=== PATIENT | female | born 1940 | race Caucasian/White ===

== ENCOUNTER 2019-04-24 11:14 | Inpatient (IN) | payer MEDICARE ==
--- NOTE | 2019-04-24 11:23 | ED ---
Neurological HPI - HPI Summary HPI Summary: Patient is a 78 y/o F presenting to the ED via EMS for a chief complaint of neurological deficit. Patient is present with her daughter. Patient's daughter states that the patient is visiting [place] from [place] and has been increasingly weak for the last 24 hours. Typically, the patient is functional on her own, but since visiting, she has been unable to complete tasks without help. She has also needed to use a walker, which she does not usually need to ambulate. On 04/23/19, patient notes having memory problems, mumbling speech, and bilateral LE and right UE numbness and weakness. Her daughter states the mumbling speech quickly resolved after initial onset. She does not have a fever. No aggravating or alleviating factors are reported. Patient also reports having a fall in her bathroom on the morning of 04/23/19. A brain MRI performed on 04/23/19 at [facility] showed subacute infarcts per her daughter. On medical record review, brain MRI showed bilateral subacute supraentorial infarcts with concern for cardioembolic source. PMHx is significant for multiple myeloma for which she is receiving chemotherapy, last on 04/16/19. Patient denies a history of CVA. She sees Dr. Blanca Mandel, a roundhouse firer/fireman/oncologist, at [facility]. - History of Current Complaint Stated Complaint: BLOOD CLOT PER EMS Time Seen by Provider: 04/24/19 11:20 Hx Obtained From: Patient, Family/Quality Technician [employer] - Daughter, Medical Records Onset/Duration: Sudden Onset Timing: Sudden Onset Onset Severity: Moderate Current Severity: Moderate Neurological Deficit Location: RUE, RLE, LLE Pain Scale Used: 0-10 Numeric Character: Weak - Bilateral LE and right UE, Numbness/Tingling - Bilateral LE and right UE, Motor Weakness - Bilateral LE and right UE, Impaired Speech - Mumbling speech, resolved Aggravating: Nothing Alleviating: Nothing Associated Signs and Symptoms: Positive: Weakness - Bilateral LE and right UE, Numbness - Bilateral LE and right UE. Negative: Fever - Allergy/Home Medications Allergies/Adverse Reactions: Allergies Allergy/AdvReac Type Severity Reaction Status Date / Time Sulfa (Sulfonamide Allergy Rash And Verified 04/24/19 11:49 Antibiotics) Itching Home Medications: Home Medications Acyclovir* [Zovirax 400 MG TAB*] 400 mg PO BID 04/24/19 [History Confirmed 04/24] Atorvastatin* [Lipitor*] 10 mg PO DAILY 04/24/19 [History Confirmed 04/24/19] Dexamethasone [Decadron] 4 mg PO SEE INSTRUCTIONS 04/24/19 [History Confirmed ] Metoprolol Succinate XL TAB* [Toprol XL TAB*] 50 mg PO DAILY 04/24/19 [History Confirmed 04/24/19] Omeprazole 20 mg PO DAILY 04/24/19 [History Confirmed 04/24/19] traMADol TAB* [Ultram*] 50 - 400 mg PO BEDTIME 04/24/19 [History Confirmed 04/24] PMH/Surg Hx/FS Hx/Imm Hx Previously Healthy: Yes Endocrine/Hematology History: Denies: Hx Diabetes Sensory History: Denies: Hx Legally Blind, Hx Deafness Opthamlomology History: Denies: Hx Legally Blind EENT History: Denies: Hx Deafness - Cancer History Cancer Type, Location and Year: Muliple myeloma Hx Chemotherapy: Yes - Surgical History Surgical History: None Surgery Procedure, Year, and Place: None Infectious Disease History: No - Family History Known Family History: Negative: Blood Disorder - Social History Occupation: Retired Alcohol Use: None Hx Substance Use: No Substance Use Type: Reports: None Hx Tobacco Use: No Smoking Status (MU): Never Smoked Tobacco Review of Systems Negative: Fever Positive: Weakness - Bilateral LE and right UE, Numbness - Bilateral LE and right UE All Other Systems Reviewed And Are Negative: Yes Physical Exam - Summary Physical Exam Summary: Constitutional: Well-developed, Well-nourished, Elderly, Alert. (-) Distressed Skin: Warm, Dry HENT: Normocephalic; Atraumatic Eyes: Conjunctiva normal Neck: Musculoskeletal ROM normal neck. (-) JVD, (-) Nuchal rigidity Cardio: Rhythm regular, rate normal, Heart sounds normal; Intact distal pulses; Radial pulses are 2+ and symmetric. (-) Murmur Pulmonary/Chest wall: Effort normal. (-) Respiratory distress, (-) Wheezes, (-) Rales Abd: Soft. (-) Tenderness, (-) Distension, (-) Guarding, (-) Rebound Musculoskeletal: (-) Edema Lymph: (-) Cervical adenopathy Neuro: Alert, PERRL, Oriented x3, Strength normal, Cranial nerves II-XII are grossly intact aside from mild dysarthria. SILT, Strength 5/5 BUE and BLE, (-) Dysmetria, (-) Nystagmus, ambulates w help Psych: Mood and affect Normal Triage Information Reviewed: Yes Vital Signs Reviewed: Yes Procedures - Sedation Patient Received Moderate/Deep Sedation with Procedure: No Diagnostics - Laboratory Result Diagrams: 04/24/19 11:37 04/24/19 11:37 Lab Statement: Any lab studies that have been ordered have been reviewed, and results considered in the medical decision making process. - EKG 12:04 Cardiac Rate: NL - 79 BPM EKG Rhythm: Sinus Rhythm ST Segment: Normal Ectopy: None Summary of EKG Findings: An EKG at 12:04 reveals normal sinus rhythm with 79 BPM , T wave inversions in lead III and V2, nml axis, nml intervals. No STEMI. No acute changes. ED physician has reviewed and interpreted this EKG. NIH Scale - NIH Scale Level of Consciousness: Alert/Keenly Responsive Ask Patient the Month and His/Her Age: Both Correct Ask Pt to Open/Close Eyes and Children'S Service Worker/Release Non-Paretic Hand: Both Correctly Best Gaze (Only Horizontal Eye Movement): Normal Visual Field Testing: No Visual Loss Facial Paresis-Pt to Smile & Close Eyes or Grimace Symmetry: Normal/Symmetrical Motor Function - Right Arm: No Drift-Holds 10 Seconds Motor Function - Left Arm: No Drift-Holds 10 Seconds Motor Function - Right Leg: No Drift-Holds 10 Seconds Motor Function - Left Leg: No Drift-Holds 10 Seconds Limb Ataxia-Must be out of Proportion to Weakness Present: Absent Sensory (Use Pinprick to Test Arms/Legs/Trunk/Face): Normal Best Language (Describe Picture, Name Items): No Aphasia Dysarthria (Read Several Words): Slurs Some Words Extinction and Inattention: No Abnormality Total Score: 1 Course/Dx - Course Course Of Treatment: 78 y/o F with a history of multiple myeloma, presenting with concern for stroke. NH stroke scale 1 for intermittent dysarthria. Otherwise no focal neurologic deficits. MRI brain obtained yesterday shows subacute infarcts concerning for cardioembolic source. EKG sinus. Patient to be admitted for further workup. Oncology and neurology to be involved. - Diagnoses Provider Diagnoses: Stroke, Hyponatremia, Multiple myeloma - Physician Notifications Discussed Care Of Patient With: Kevan Johnson - At 12:07, Dr. Johnson states the patient will be okay to keep at [facility]. At 12:10, I discussed the patients case with her oncologist, Dr. Mandel at [facility]. Phone number is [phone]. At 12:18, Dr. Dina Echols agrees to admit the patient to [facility] with a diagnosis of stroke, hyponatremia, and multiple myeloma. Time Discussed With Above Provider: 12:07 Instructed by Provider To: Admit As Inpatient Discharge ED - Sign-Out/Discharge Documenting (check all that apply): Patient Departure - Admit - Discharge Plan Condition: Stable Disposition: ADMITTED TO [facility] - Billing Disposition and Condition Condition: STABLE Disposition: Admitted to [facility] - Attestation Statements Document Initiated by Frankibe: Yes Documenting Scribe: Mena Cristina Provider For Whom Scribe is Documenting (Include Credential): Valentine Beck MD Scribe Attestation: I, Mena Cristina, scribed for Valentine Beck MD on 04/24/19 at 2109. Scribe Documentation Reviewed: Yes Provider Attestation: The documentation as recorded by the Mena field accurately reflects the service I personally performed and the decisions made by , Valentine Beck MD Status of Scribe Document: Viewed
[2019-04-24 11:51] LABS: ABS Lymphocytes 0.6 10^3/ul (1.0-4.8); ABS Monocytes 0.8 10^3/ul (0-0.8); ABS Neutrophils 7.7 10^3/ul (1.5-7.7); Eosinophil % 0.3 %; Hematocrit 30 % (35-47); Hemoglobin 10.1 g/dL (12.0-16.0); Lymphocyte % 7.1 %; Mean Corpuscular HGB Conc 34 g/dL (31-36); Mean Corpuscular Hemoglobin 33 pg (27-31); Mean Corpuscular Volume 95 fL (80-97); Mean Platelet Volume 11.3 fL (7.4-10.4); Nucleated Red Blood Cells % 0.4; Platelet Count 76 10^3/uL (150-450); Red Blood Count 3.12 10^6 /uL (3.70-4.87); Red Cell Distribution Width 16 % (10-15); White Blood Count 9.1 10^3/uL (3.5-10.8)
[2019-04-24 11:54] LABS: INR 0.97 (0.82-1.09)
[2019-04-24 12:05] LABS: Albumin 3.6 g/dL (3.2-5.2); Albumin/Globulin Ratio 1.8 (1-3); EGFR African American 45.8 (>60); EGFR Non-African American 37.8 (>60); Total Bilirubin 0.8 mg/dL (0.2-1.0); Total Protein 5.6 g/dL (6.4-8.9)
[2019-04-24 13:16] LABS: Large Platelets Present
[2019-04-24] MEDS ORDERED: traMADol TAB* 50 MG PO PRN (14:40)
[2019-04-24] MEDS ORDERED: NS 0.9% 1000 ML** 1,000 ML IV SCH (14:45)
--- NOTE | 2019-04-24 15:16 | HP ---
History of Present Illness - History of Present Illness Reason for Visit: Slurring speech for 1 week History of Present Illness: Jackie Freedman is a 78 years old female with history of multiple myeloma under treatment with velcade and dexa, HTN, CKD stage 3, presented to [facility] ED for slurring speech with positive MRI results yesterday. History was obtained from patient herself and her two daughters who are very involved in her healthcare. She was noticed to have slurring speech since last Tuesday. Initially they noticed she had 10-15min slurring speech with no meaningful content last Tuesday when she was pacing. Subsequently, her daughter noticed "she sounds drunk" on and off in the past 1 week, and she was found to have naming difficulties. But no problems recognizing family members, no problem finding a way back. They contacted her oncologist Dr. Spangler in [facility], who ordered MRI brain her her and performed yesterday, which shows "bilateral punctate late acute to early subacute supra and infratentorial infarct which is possibly cardioembolic ". She had been noticed to have unsteady gait since Feb discharge from [facility] in [place] for hyponatremia causing confusion, she fell down twice recently, but didn't hit head. She had an episode of hallucination two nights ago when she saw a cat on the wall but no one else believed it, yesterday she had another episode of blackened vision yesterday which resolving very quickly. She denied other vision change other than above. In terms of her myeloma, she was diagnosed in Dec during investigation for her lower back, confirmed by bone marrow biopsy. She received 10 radiation to her back, and velcade 6 doses so far (3 weeks on and 1 week off, currently is off week, together with dexa when on velcade). She was told she was responding well but haven't reached remission. - Past Medical History Past Medical History: 1. HTN 2. Multiple Myeloma 3. CKD stage 3 4. Mild aortic stenosis- last echo was done end of Feb, was told stable as compared with previous echo 5. recent US carotid done, was told to be negative. - Past Surgical History Past Surgical History: 1. Bilateral knee replacement 2. Cataract surgery bilateral 3. bilateral hearing aid. - Past Family History Past Family History: Non contributory - Past Social History Past Social History: Staying alone in [place], two daughters both stay in [place]. ADL independent before current admission. Two daughters are main helpdesk specialist, one works in [employer]. Daughters plan to bring her to [place] for futher care. Her oncologist Dr. Aníbal Roberts is her r d intern in [place]. Medications: Home Medications Medication Instructions Recorded Confirmed Type Acyclovir* [Zovirax 400 MG TAB*] 400 mg PO BID 04/24/19 04/24/19 History Atorvastatin* [Lipitor*] 10 mg PO DAILY 04/24/19 04/24/19 History Dexamethasone [Decadron] 4 mg PO SEE INSTRUCTIONS 04/24/19 04/24/19 History Metoprolol Succinate XL TAB* 50 mg PO DAILY 04/24/19 04/24/19 History [Toprol XL TAB*] Omeprazole 20 mg PO DAILY 04/24/19 04/24/19 History traMADol TAB* [Ultram*] 50 - 400 mg PO BEDTIME 04/24/19 04/24/19 History Allergies/Adverse Reactions: Allergies Allergy/AdvReac Type Severity Reaction Status Date / Time Sulfa (Sulfonamide Allergy Rash And Verified 04/24/19 11:49 Antibiotics) Itching Review of Systems - Review of Systems Constitutional: Positive: Weakness. Negative: Fever, Chills, Sweats, Malaise, Other Eyes: Negative: Pain, Vision Change, Conjunctivae Inflammation, Eyelid Inflammation, Redness, Other ENT: Negative: Ear Pain, Ear Discharge, Nose Pain, Nose Discharge, Nose Congestion, Mouth Pain, Mouth Swelling, Throat Pain, Throat Swelling, Other Respiratory: Negative: Cough, Dry, Shortness of Breath, Hemoptysis, SOB with Excertion, Pleuritic Pain, Sputum, Wheezing Cardiovascular: Positive: Palpitations, Light Headedness Gastrointestinal: Negative: Nausea, Vomiting, Abdominal Pain, Diarrhea, Constipation, Melena, Hematochezia, Other Genitourinary: Negative: Dysuria, Frequency, Incontinence, Hematuria, Retention , Other Musculoskeletal: Positive: Arm Pain Skin: Positive: Other Neurological: Positive: Weakness, Change in Speech Exam Vital Signs: Vital Signs (72 hours) 04/24/19 04/24/19 04/24/19 11:16 11:27 11:30 Temperature 97.4 F Pulse Rate 91 89 88 Respiratory 20 21 25 Rate Blood Pressure 115/71 115/71 (mmHg) O2 Sat by Pulse 98 97 98 Oximetry 04/24/19 04/24/19 04/24/19 12:00 13:00 14:00 Temperature Pulse Rate 81 74 81 Respiratory 21 12 23 Rate Blood Pressure (mmHg) O2 Sat by Pulse 96 98 Oximetry Exam: Appearance: frail appearing woman not in NAD, alert and interactive Ears/Nose/Mouth/Throat: Clear Oropharnyx, Mucous Membranes Moist Neck: no carotid bruits Respiratory: Symmetrical Chest Expansion and Respiratory Effort, clear on auscultation Cardiovascular: NL Sounds; early systolic murmur in LSE; No JVD, RRR Abdominal: NL Sounds; No Tenderness; No Distention, No Hepatosplenomegaly Extremities: No Edema Neurological: Alert and Oriented x 4 Cranial nerve intact Muscle strength 5/5- LE restrained by back pain reflexes WNL all 4 limbs Sensation grossly intact no dysmetria, dysdiadochokinesia noticed on left hand Result Diagrams: 04/24/19 11:37 04/24/19 11:37 Additional Lab and Data: INR 0.97 Globulin normal range Liver function normal Microbiology and Other Data: None Diagnostic Imaging: MRI brain 04/23/2019: bilateral punctate late acute to early subacute supra and infratentorial infarct which is possibly cardioembolic. EKG Data: EKG: normal sinus rhythm. Assessment/Plan - Assessment/Plan Assessment: Jackie Freedman is a 78 years old female with history of multiple myeloma under treatment with velcade and dexa, HTN, CKD stage 3, presented to [facility] ED for slurring speech for 1 week duration, found to have late acute to early subacute stroke supra and infratentorial infarct in MRI brain, also noticed hyponatremia which probably has been long standing. We will admit her to medical-tele [facility] for telemetry monitoring with the concern of cardioembolic stroke noticed in MRI , also she needs a complete workup for her stroke and management of her cardiovascular risk factors. Plan: 1. Acute to subacute stroke ? cardioembolic - could explain her unsteady gait and slurring speech since it was noticed both supratentorial and infratentorial - telemetry monitoring for Afib, current EKG is NSR - iv NS - permissive hypertension, keep sBP up to 180mmhg for now - aspirin for now, I will hold off 2nd antiplt and antithrombotic for now in view of her thrombocytopenia and potential cardioembolic nature, I will defer the decision to neurologist - trace US carotid (Patient had one done end of Dec showing negative in [facility]) - TTE with bubble study - Neurology consult for further management - swallowing eval in the cole - check cholesterol tomorrow 2. Multiple Myeloma - current still under treatment with Velcade and Dexa, f/u Dr. Spangler in [facility] - definitely increases her risk of stroke with existing malignancy - will trace record from her primary oncologist - Family would like to establish oncology care in [place], would need to get oncology involved if that's the case - continue herpes prophylaxis as ordered by her oncologist 3. Hyponatremia - Na 129 - probably long standing, was 120 in Dec when she was hospitalized - recheck tomorrow 4. Hypertension - continue home med - permissive hypertension allowed for now up to 180mmhg systolic 5.CKD stage 3 - creatinine stable - continue to watch 6. DVT prophylaxis - high risk due to malignancy and stroke - SCD - will hold off lovenox for now while waiting neurologist's plan on that - Attestation Documenting Resident: Elham Vail Supervising Physician: Satya Temple Attending/Supervising Physician Comment: Patient with active treatment for myeloma, admitted w/ 1 week course of stuttering neurologic defects. MRI shows small apparent embolic strokes in LT and RT hemispheres, posterior and anterior circulation, a few days old. Suspect cardio-embolic source vs vasculitis vs infection. Discussed w/ Dr Doss. Family history negative for hematologic disease. Attestation: This service has been performed in part by a resident under the direction of a teaching physician.I, Satya Temple, performed the service, or was physically present during the critical, or ospina portions of the service, furnished by the resident. I participated in the management of the patient.
[2019-04-24] MEDS ORDERED: Clopidogrel TAB* 300 MG PO ONE (16:30)
--- NOTE | 2019-04-24 19:45 | CONS ---
NEUROLOGY CONSULTATION: DATE OF CONSULT: 04/24/19 REFERRING PROVIDER: Dr. Elham Vail. LOCATION: She is in the emergency room, to be admitted. HISTORY OF PRESENT ILLNESS: Jackie Freedman is a 78-year-old right-handed woman being treated for multiple myeloma by her oncologist in the [place] area. She lives alone and her daughters live in the [place] area. Last Tuesday, a little over a week ago, she had an episode of slurred speech. After that she has had problems ambulating and has been unsteady and started using a walker. She developed episodic confusion. There were no episodes of loss of awareness. She saw her oncologist about a week ago and an MRI scan of the brain was ordered. It was done today here in [place]. The interpretation was multiple small subacute cerebral infarctions and multiple vascular territories suspicious for cardiogenic emboli. I reviewed the images and I agree. However , there is no wedge-shaped infarct but rather multiple tiny punctate subacute infarcts. This includes in the left cerebellum and then bilateral cerebral hemispheres anterior and posteriorly. She presented for admission. Her daughters want to keep her in [place] as she was living by herself up in [place] and they feel she can no longer care for herself living alone. She does not have any history of heart disease other than "mild" aortic stenosis. She had an echocardiogram in February, which was apparently no worse than the prior scans. There is no history of atrial fibrillation. She does not take aspirin on a regular basis. There is no prior history of stroke or transient ischemic attack. PAST MEDICAL HISTORY: Is notable for multiple myeloma, several years of pretty bad back pain which ultimately led to the diagnosis of myeloma about a year ago. She has developed stage 3 kidney disease. She has a history of aortic stenosis. She has had bilateral knee replacements and cataract surgery. She wears hearing aids. MEDICATIONS AT HOME: Consist of: 1. Metoprolol XL 50 mg p.o. daily. 2. Omeprazole 20 mg p.o. daily. 3. Acyclovir 400 mg p.o. b.i.d. 4. Lipitor 10 mg p.o. daily. 5. Tramadol 50 mg as needed for back pain typically at bedtime. ALLERGIES: She is allergic to SULFA drugs. FAMILY HISTORY: Noncontributory. REVIEW OF SYSTEMS: Negative for skin rashes. She does have episodic abdominal pain. She denies shortness of breath or chest pain. She denies pain in her limbs. She gets episodic numbness in her hands for a long time. She denies numbness in her feet. She gained a lot of weight when she was being treated for hyponatremia and took on lots of edema fluid. She then lost it when she came off. She denies fevers, chills, or sweats. She has not had any recent infectious illnesses. She did have some change in her vision recently where she thought she saw a cap when there was not one there. That was in the last week or so. She had another vision where she saw a linear ribbon like scotoma in her visual field, which was brief and that was in the last week also. She has not experienced double vision. She does not have problems with headaches. She admits to occasional word finding problems. Her daughters note that her short-term memory has been declining for perhaps a year or more. She gave up doing her finances several months back because difficulty keeping up with them. She stopped driving just about a month ago. The rest of the 14-point review of systems is unremarkable. PHYSICAL EXAM: She is thin, but well hydrated. Temperature is 97.4, blood pressure 137/45, heart rate in 70s and in sinus on the monitor, respiratory rate is 20, and oxygen saturation is 98% on room air. Heart tones are regular with a grade 3/6 early systolic murmur, loudest at the upper right sternal border. There are no cervical bruits. Oral mucosa is moist and atraumatic. Lungs are Clear bilaterally. There is no clubbing. I do not see any obvious skin rashes. Feet and hands are warm. On neurological exam, pupils react equally from 4 mm down to 2 mm. Eye movements are normal. Visual causey are full to confrontation. Funduscopic exam is normal bilaterally. Facial musculature is symmetric. Facial sensation is symmetric to light touch. There is no dysarthria and tongue protrudes in the midline. She is a little hard of hearing. Motor exam reveals good strength proximally and distally in upper extremities and lower extremities other than some atrophy of right thenar muscles. There is pain with testing her right leg proximally in the low back. She has absent vibratory sense in the toes. She has intact light touch in the toes and fingers. She has diminished pin discrimination in the right median distribution relative to the ulnar distribution. She has absent proprioception in the great toes bilaterally. Reflexes are grade 1 in biceps, knees, and absent at the ankles. Right plantar is equivocal and the left plantar is flexor. I did not attempt to ambulate her. She has a little bit of multifocal myoclonus in the outstretched fingers. Finger- to-nose maneuver is slightly tremulous on the right hand relative to the left. Finger taps are normal bilaterally. [id number] maneuver is somewhat limited in terms of range of motion, but not grossly ataxic. She is alert and oriented with fair attention and concentration. She looses her train of thought at times. Language is fluent. DIAGNOSTIC STUDIES/LAB DATA: Laboratory data includes a CBC with a hemoglobin of 10.1, white blood cell count 9.1, platelet count low at 76,000. Her INR is normal at 0.97. Chemistry is notable for sodium of 129, BUN 27, creatinine 1.35 , glucose of 124. Calcium is normal. Liver enzymes are normal. Globulin level is low normal at 2.0. Beta-2 microglobulin is elevated at 4.21. IMPRESSION: There are multiple punctate cerebral infarctions in multiple vascular distributions. Cardiogenic emboli are certainly on the differential diagnosis. Vasculitis in a patient with multiple myeloma and Velcade is another possibility. PLAN/RECOMMENDATIONS: For now, I recommend treating with aspirin and a loading dose of Plavix. I recognize that her platelets are low, but I think it is still relatively safe to start Plavix and aspirin at least for the short term. She will be admitted to Telemetry. Recommend an transesophageal echocardiogram as we need to get a good look at her valves, specifically aortic valve. I will put in blood work for antineutrophil antibodies as well as a sedimentation rate and CRP. Her daughters indicate that they would like her to see Oncology as they plan to have her move to [place]. I will continue to follow her along with you. [id number]/[facility] #: [id number] VENKAT
[2019-04-24] MEDS: Acyclovir* 400 MG TAB PO SCH (21:27)
[2019-04-25 01:54] LABS: C Reactive Protein 1.95 mg/L (<8.01)
[2019-04-25] MEDS: Acetaminophen TAB* 325 MG PO PRN ×2 (03:04→22:17)
[2019-04-25] MEDS ORDERED: Polyethylene Glycol 3350* 17 GM PACKET PO PRN (08:00)
[2019-04-25 09:26] LABS: ABS Lymphocytes 0.7 10^3/ul (1.0-4.8); ABS Monocytes 0.6 10^3/ul (0-0.8); ABS Neutrophils 6.6 10^3/ul (1.5-7.7); Eosinophil % 0.4 %; Hematocrit 25 % (35-47); Hemoglobin 8.9 g/dL (12.0-16.0); Lymphocyte % 8.2 %; Mean Corpuscular HGB Conc 35 g/dL (31-36); Mean Corpuscular Hemoglobin 33 pg (27-31); Mean Corpuscular Volume 94 fL (80-97); Mean Platelet Volume 11.1 fL (7.4-10.4); Nucleated Red Blood Cells % 0.1; Platelet Count 54 10^3/uL (150-450); Red Blood Count 2.69 10^6 /uL (3.70-4.87); Red Cell Distribution Width 16 % (10-15)
[2019-04-25 09:33] LABS: BUN/Creatinine Ratio 20.4 (8-20); Calcium 8.3 mg/dL (8.6-10.3); EGFR African American 59.2 (>60); EGFR Non-African American 48.9 (>60); HDL Cholesterol 65.9 mg/dL; Potassium 3.8 mmol/L (3.5-5.0)
[2019-04-25] MEDS ORDERED: Naloxone* 0.4 MG/ML 1 ML VIAL ONE (11:43)
[2019-04-25] MEDS ORDERED: Lidocaine 2% VISCOUS* 15 ML UDC ONE (11:43)
[2019-04-25] MEDS ORDERED: Flumazenil* 0.1 MG/ML 5 ML MDV ONE (11:43)
[2019-04-25] MEDS ORDERED: fentaNYL* 50 MCG/ML 2 ML VIAL (100 MCG VIAL) ONE (11:43)
[2019-04-25] MEDS ORDERED: Midazolam* 1 MG/ML 5 ML VIAL (5 MG) ONE (11:43)
--- NOTE | 2019-04-25 12:24 | PROCNOTE ---
Cardiology Procedure Note EDEL completed PRELIM: No cardioembolic source found NML LV and RV function. Mild , NCC immobile Mild + MR Plaque in descending aorta
--- NOTE | 2019-04-25 14:56 | TEE ---
*[facility]* [place] [address] Fax #: [phone] Transesophageal Echocardiogram Patient: Eze Freedman : 1940 Study Date: 04/25/2019 Age: 78 Gender: F HR: 75 bpm Height: 63 in /160 cm BSA: 1.56 m^2 Weight: 120 lb /54.5 kg BMI: 21.3 kg/m^2 *Tie In Hand: Mena Drummond [facility] *Referring Physician: * Eber Doss *Reading Physician: * Opal Agustin MD Indications: CVA. History: Multiple myeloma, chemo. Aortic stenosis. Risk factors: Hypertension. Conclusions Summary: - Left ventricle: Systolic function is normal. The estimated ejection fraction is 55-60%. Wall motion is normal; there are no regional wall motion abnormalities. - Right ventricle: Systolic function is normal. - Left atrium: Emptying velocity is normal. Mild Rouleax formation noted. There is no evidence of a thrombus in the atrial cavity or appendage. - Atrial septum: Bubble study was negative - Mitral valve: There is mild to moderate regurgitation. - Aortic valve: Cusp separation is moderately reduced. The findings are consistent with mild stenosis. There is trace regurgitation. - Tricuspid valve: There is trace regurgitation. - Aorta: The aorta is normal size and moderately calcified. - Pulmonary arteries: No ductal shunt is identified by Doppler. - No cardioembolic source identified. - No prior echocardiogram available to compare with. Study data: Diagnostic Transesophageal Echocardiogram Consent: The risks and benefits of the procedure, including alternatives were discussed with the patient and/or their health care specialty sales representative and written informed consent was obtained. Procedure: Initial setup: The patient was brought to the laboratory in the fasting state.Intravenous access was obtained. Surface ECG leads, heart rate, heart rhythm, blood pressure measurements, pulse oximetric signals, and mainstream end-tidal CO2 tracings were monitored throughout the procedure. Sedation. Moderate sedation was administered by nursing staff. History and physical as well as labs were reviewed. An oral bite block was inserted for protection of oral dentition. The patient was placed in the left lateral decubitus position. Topical anesthesia was obtained using viscous lidocaine. A transesophageal probe was inserted by the attending firmware engineer. Transesophageal echocardiography was performed, and all standard views were attempted within the limitations of patient tolerance and safety. Multiple 2D, color flow Doppler and spectral Doppler images were obtained. The transesophageal probe was removed. There was no blood loss.No specimens obtained.No tubes, implants, or drains. A bubble study was performed. Location: Procedure room. Patient status: Inpatient. Patient room number: 449. Study completion: The patient tolerated the procedure well. There were no complications. Administered medications: Midazolam, 4mg. Fentanyl, 50mcg. Findings Left ventricle: The cavity size is normal. Systolic function is normal. The estimated ejection fraction is 55-60%. Wall motion is normal; there are no regional wall motion abnormalities. Right ventricle: The cavity size is normal. Systolic function is normal. Left atrium: The atrium is dilated. Emptying velocity is normal. Mild Rouleax formation noted. There is no evidence of a thrombus in the atrial cavity or appendage. Right atrium: The atrium is normal in size. The Eustachian valve appeared prominant. Atrial septum: Bubble study was negative Image #[id number]. Mitral valve: The annulus appears calcified. The leaflets are mildly thickened. There is no evidence of stenosis. There is mild to moderate regurgitation. Aortic valve: The valve is trileaflet. The leaflets are moderately calcified. Cusp separation is moderately reduced. The findings are consistent with mild stenosis. There is trace regurgitation. Tricuspid valve: The leaflets are normal thickness. There is no evidence of stenosis. There is trace regurgitation. Pulmonic valve: The leaflets are normal thickness. There is no evidence of stenosis. There is trace regurgitation. Aorta: The aorta is normal size and moderately calcified. Pericardium: There is no significant pericardial effusion. Pulmonary arteries: The main pulmonary artery is normal-sized. No ductal shunt is identified by Doppler. Systemic veins: Inferior vena cava: The vessel is normal in size. Superior vena cava: The vessel is appears normal. Pulmonary veins: The flow of the pulmonary veins appears normal. Measurements Aortic valve Value Ref Mitral valve continued Value Ref Jacinta diam, ED 2.0 cm ---- Peak grad, D 4.2 mm Hg ---- Peak v, S 2.6 m/sec ---- Peak E/A ratio 1 ---- VTI, S 56.0 cm ---- Mean grad, S 13.0 mm Hg ---- Aortic root Value Ref Peak grad, S 27.0 mm Hg ---- Root diam 2.8 cm <3.8 Root max diam, ED 2.8 cm <3.8 Mitral valve Value Ref Peak E 1.03 m/sec ---- Ascending aorta Value Ref Peak A 1.08 m/sec ---- AAo AP diam, S 2.9 cm ---- Decel time 81 ms ---- AAo AP diam/bsa, S 1.9 cm/m^2 ---- Legend: (L) and (H) rosa values outside specified reference range. Prepared and electronically signed by Opal Agustin MD 04/25/2019 14:55
[2019-04-25] MEDS: Acyclovir* 400 MG TAB PO SCH (15:28)
[2019-04-25] MEDS: Clopidogrel TAB* 75 MG PO SCH (15:38)
[2019-04-25] MEDS: Pantoprazole TAB * 40 MG TAB PO SCH (15:41)
[2019-04-25] MEDS: Metoprolol Succinate XL TAB* 50 MG PO SCH (15:41)
[2019-04-25] MEDS: Aspirin 81 mg CHEW TAB* 81 MG TAB.CHEW PO SCH (15:42)
[2019-04-25] MEDS: Atorvastatin* 10 MG TAB PO SCH (15:42)
--- NOTE | 2019-04-25 16:33 | CONS ---
NEUROLOGY FOLLOWUP CONSULT: DATE OF FOLLOWUP: 04/25/19 LOCATION: She is an inpatient in room 449. HOSPITALIST: Dr. Vail. ATTENDING PHYSICIAN: Dr. Temple. CHIEF COMPLAINT: Strokes, confusion. INTERVAL HISTORY: Since last night, Jackie has been more confused and hallucinating. One of her daughters as well as her son-in-law is present. She has been seeing cats and other items in her room. She just recently came back from a transesophageal echocardiogram. Her daughter reports that when she was hospitalized with hyponatremia in February she was also hallucinating. As noted in my note from yesterday, she was having some memory problems progressively for perhaps months or a bit longer going back prior to this illness. MEDICATIONS: Reviewed and she is on: 1. Aspirin 81 mg p.o. daily. 2. Acyclovir 400 mg p.o. b.i.d. 3. Atorvastatin 10 mg p.o. daily. 4. Metoprolol 50 mg p.o. daily. 5. Pantoprazole 40 mg p.o. daily. 6. MiraLAX. PHYSICAL EXAM: She is thin, but well hydrated. Temperature most recently 97.3 , blood pressure is running about 120 to 140 systolic over 60 to 80 diastolic. Neurological Exam: Pupils react equally from 3.5 to 2 mm. Eye movements are normal. Visual causey are full to confrontation. Funduscopic exam is unremarkable. Facial musculature is symmetric today. Facial sensation to light touch is symmetric. Speech is mildly dysarthric. Motor exam reveals antigravity strength symmetrically in all limbs. There is no drift of the arms. [id number] maneuver is a bit clumsy on the left relative to the right. I did not attempt to ambulate her. She is awake and alert. She has very poor attention and concentration and intermittently visually tracks hallucinations. She thinks she saw her cat in the room. She loses her train of thought very easily. She picks at her bedclothes. DIAGNOSTIC STUDIES/LAB DATA: Includes the transesophageal echocardiogram, which revealed mild aortic stenosis, but was otherwise unremarkable without a cardioembolic source. There was some plaque in the descending aorta. Other laboratory data since yesterday notable for sedimentation rate of 11, normal INR yesterday, normal CRP from yesterday at 1.95. Her sodium today is 129, creatinine is stable at 1.08. She has been in sinus rhythm on her telemetry overnight. IMPRESSION AND PLAN: Impression is that of multiple probable cardioembolic strokes, but without a clear source. Vasculitis remains on the differential, but with a normal sedimentation rate and CRP makes it less likely. She is currently experiencing delirium. She may have had some premorbid mild cognitive impairment. Oncology has been consulted and Dr. Vail informs me that they will probably see her tomorrow. I spoke with Social Work and they have been consulted too. Her daughters want her to move into the [facility] and move her medical care here as well. She will be monitored at least overnight and unless she goes into atrial fibrillation, I would recommend dual antiplatelet therapy for 21 days followed by aspirin monotherapy. We discussed prognosis at some length regarding recovery from stroke and whether or not she had premorbid cognitive disorder or not. I will continue to follow her along with you. [id number]/CPS #: [id number] VENKAT
--- NOTE | 2019-04-25 17:33 | PN ---
Subjective Date of Service: 04/25/19 Interval History: Patient was accompanied by her daughter this morning. She didn't have a good sleep here. Daughter stated that she still had visual hallucinations, seeing cats on the wall. Objective Active Medications: Acetaminophen (Tylenol Tab*) 650 mg PO Q4H PRN PRN Reason: PAIN - MILD Last Admin: 04/25/19 03:04 Dose: 650 mg Aspirin (Aspirin 81 Mg Chew Tab*) 81 mg PO DAILY [facility] Last Admin: 04/25/19 15:42 Dose: 81 mg Atorvastatin Calcium (Lipitor*) 10 mg PO DAILY [facility] Last Admin: 04/25/19 15:42 Dose: 10 mg Clopidogrel Bisulfate (Plavix Tab*) 75 mg PO DAILY [facility] Last Admin: 04/25/19 15:38 Dose: 75 mg Melatonin (Melatonin) 3 mg PO BEDTIME [facility] Metoprolol Succinate (Toprol Xl Tab*) 50 mg PO DAILY [facility] Last Admin: 04/25/19 15:41 Dose: 50 mg Pantoprazole Sodium (Protonix Tab*) 40 mg PO DAILY [facility] Last Admin: 04/25/19 15:41 Dose: 40 mg Polyethylene Glycol/Electrolytes (Miralax*) 17 gm PO DAILY PRN PRN Reason: CONSTIPATION Tramadol HCl (Ultram*) 50 mg PO BEDTIME PRN PRN Reason: PAIN - MODERATE Last Admin: 04/24/19 21:27 Dose: 50 mg Vital Signs - 8 hr 04/25/19 04/25/19 04/25/19 11:21 11:25 11:30 Temperature Pulse Rate 79 78 82 Respiratory 16 14 16 Rate Blood Pressure 142/84 146/78 155/78 (mmHg) O2 Sat by Pulse 96 97 96 Oximetry 04/25/19 04/25/19 04/25/19 11:57 11:58 12:00 Temperature Pulse Rate 84 80 78 Respiratory Rate Blood Pressure 158/97 144/74 (mmHg) O2 Sat by Pulse 96 94 95 Oximetry 04/25/19 04/25/19 04/25/19 12:02 12:06 12:11 Temperature Pulse Rate 77 73 70 Respiratory Rate Blood Pressure 130/65 114/66 108/62 (mmHg) O2 Sat by Pulse 94 94 94 Oximetry 04/25/19 04/25/19 04/25/19 12:16 12:21 12:26 Temperature Pulse Rate 70 73 71 Respiratory Rate Blood Pressure 128/62 141/83 126/66 (mmHg) O2 Sat by Pulse 95 95 95 Oximetry 04/25/19 04/25/19 04/25/19 12:31 12:47 13:46 Temperature 98.6 F Pulse Rate 67 69 77 Respiratory 16 Rate Blood Pressure 114/59 119/57 146/66 (mmHg) O2 Sat by Pulse 95 95 98 Oximetry 04/25/19 15:15 Temperature 97.3 F Pulse Rate 79 Respiratory 18 Rate Blood Pressure 115/95 (mmHg) O2 Sat by Pulse 97 Oximetry Oxygen Devices in Use Now: None Exam: Appearance: frail appearing woman not in NAD, alert and interactive Ears/Nose/Mouth/Throat: Clear Oropharnyx, Mucous Membranes Moist Neck: no carotid bruits Respiratory: Symmetrical Chest Expansion and Respiratory Effort, clear on auscultation Cardiovascular: NL Sounds; early systolic murmur in LSE; No JVD, RRR Abdominal: NL Sounds; No Tenderness; No Distention, No Hepatosplenomegaly Extremities: No Edema Neurological: Alert and Oriented x 4 Cranial nerve intact Muscle strength 5/5- LE restrained by back pain reflexes WNL all 4 limbs Sensation grossly intact no dysmetria, dysdiadochokinesia randomly happened in both hands Result Diagrams: 04/26/19 06:42 04/26/19 06:42 Additional Lab and Data: INR 0.97 Globulin normal range Liver function normal Microbiology and Other Data: None Diagnostic Imaging: MRI brain 04/23/2019: bilateral punctate late acute to early subacute supra and infratentorial infarct which is possibly cardioembolic. EKG Data: EKG: normal sinus rhythm. Assess/Plan/Problems-Billing Assessment: Jackie Freedman is a 78 y/o female with multiple myeloma under treatment with velcade and dexa, HTN, CKD stage 3, presented to [facility] for slurring speech for 1 week duration, found to have late acute to early subacute stroke supra and infratentorial infarct in MRI brain, also noticed hyponatremia. - Patient Problems (1) Stroke Current Visit: Yes Status: Acute Code(s): I63.9 - CEREBRAL INFARCTION, UNSPECIFIED SNOMED Code(s): 238330119 Comment: - late acute to early subaccute infarct showed in MRI, cardioembolic likely, other diff including vasculitis - EDEL today revealed no clots, so far telemetry showed no AFib - awaiting autoimmune workup - DAPT for 3 weeks (2) Hyponatremia Current Visit: Yes Status: Acute Code(s): E87.1 - HYPO-OSMOLALITY AND HYPONATREMIA SNOMED Code(s): 80854264 Comment: - likely due to poor oral intake - traced record from [facility], na was normalized after hospitalization for pseudohyponatremia in Feb - could be due to pseudohypoNa as well since she still hadn't received remission for multiple myeloma (3) Hallucination Current Visit: Yes Status: Acute Code(s): R44.3 - HALLUCINATIONS, UNSPECIFIED SNOMED Code(s): 7303952 Comment: - concern for delirium, multifactorial: new environment, med use including tramadol and acyclovir, lack of sleep - will stop tramadol and acyclovir for now - frequent reorientation - melatonin for night time sleep (4) Thrombocytopenia Current Visit: Yes Status: Acute Code(s): D69.6 - THROMBOCYTOPENIA, UNSPECIFIED SNOMED Code(s): 260936239 Comment: could relate to ongoing chemotherapy watch for now (5) Multiple myeloma Current Visit: Yes Status: Acute Code(s): C90.00 - MULTIPLE MYELOMA NOT HAVING ACHIEVED REMISSION SNOMED Code(s): 560331375 Comment: - light chain multiple myeloma, used to follow Dr. Spangler - on Velcade and dexa, this week is off week - likely need to postpone her chemo due to stroke - she is planning to transfer her care here, we would get oncology consult here. (6) Hypertension Current Visit: Yes Status: Acute Code(s): I10 - ESSENTIAL (PRIMARY) HYPERTENSION SNOMED Code(s): 63149314 Comment: - well controlled (7) CKD (chronic kidney disease) Current Visit: Yes Status: Acute Code(s): N18.9 - CHRONIC KIDNEY DISEASE, UNSPECIFIED SNOMED Code(s): 712701792 Comment: - CKD stage 3 - creatinine stable (8) DVT prophylaxis Current Visit: Yes Status: Acute Code(s): Z29.9 - ENCOUNTER FOR PROPHYLACTIC MEASURES, UNSPECIFIED SNOMED Code(s): 648346404 Status and Disposition: Inpatient Medicine. Will get socially responsible investment adviser and major case detective consult today to facilitate discharge planning. Attestation Documenting Resident: Elham Vail Supervising Physician: Satya Temple Attending/Supervising Physician Comment: Patient here with apparent cardioembolic strokes, complicated by delirium. EDEL negative. Discussed hyponatremia w/ her outbound telemarketer Dr. Bartlett at [phone]. He states light chain causing erroneus Na readings. Will discuss ion- specific electrode, direct vs indirect testing with lab today. Attestation: This service has been performed in part by a resident under the direction of a teaching physician.I, Satya Temple, performed the service, or was physically present during the critical, or ospina portions of the service, furnished by the resident. I participated in the management of the patient.
[2019-04-25] MEDS: Melatonin 3 MG TAB PO SCH (22:17)
[2019-04-26 07:14] LABS: ABS Eosinophils 0.1 10^3/ul (0-0.6); ABS Lymphocytes 0.7 10^3/ul (1.0-4.8); ABS Monocytes 0.7 10^3/ul (0-0.8); ABS Neutrophils 6.1 10^3/ul (1.5-7.7); Eosinophil % 0.7 %; Hematocrit 25 % (35-47); Hemoglobin 8.8 g/dL (12.0-16.0); Lymphocyte % 8.9 %; Mean Corpuscular HGB Conc 36 g/dL (31-36); Mean Corpuscular Hemoglobin 33 pg (27-31); Mean Corpuscular Volume 94 fL (80-97); Mean Platelet Volume 11.5 fL (7.4-10.4); Nucleated Red Blood Cells % 0.1; Platelet Count 56 10^3/uL (150-450); Red Blood Count 2.63 10^6 /uL (3.70-4.87); Red Cell Distribution Width 16 % (10-15); White Blood Count 7.6 10^3/uL (3.5-10.8)
[2019-04-26 07:28] LABS: BUN/Creatinine Ratio 17.9 (8-20); Calcium 8.4 mg/dL (8.6-10.3); EGFR Non-African American 44.6 (>60); Potassium 3.7 mmol/L (3.5-5.0)
--- NOTE | 2019-04-26 08:57 | CONSULT ---
Consultation - Reason for Consultation Reason for Consultation: Multiple Myeloma and strokes Ordering Provider: Elham Vail Chief Complaint: stroke seen on outpatient MRI History of Present Illness: Much of this information comes from chart review as Jackie is unable to provide robust history. 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 From chart review it appears that Jackie was diagnosed with lambda light chain myeloma in August of 2018 when she presented with back pain and was found to have a lytic lesion at T10. Bone marrow biopsy confirmed 50% involvement of plasma cells and she had a free lambda light chain of 214. She was noted to have renal failure with a creatiine around 1.6 and lambda light chains in her urine. She has received by her report 3 cycles of velcade dexamethasone, with velcade given days 1, 4, 8, and 11 and she thinks steroids on days 1, 2, 4, 5, 8, 9, and 11, 12 (it looks like by notes that is 12 mg orally the day after velcade so presumably IV dex the day of velcade). It is unclear of the dose or what she takes on her week off. 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 I am not sure what her initial m-spike was and if this is light chain only disease. I do have her most recent labs from 04/09/2019 with a light chain of 9.85, B2M of 6.4, undetectable m-spike. On 04/16 she had a Hb of 11.4, platelets of 379, and creatinine if 1.47. She presented to Dr. Spangler on 04/17 and reported an episode of slurred speech, mild confusion, and unsteady gait. She was referred for outpatient brain MRI, done on 04/23/2019, which was notable for multiple embolic appearing strokes. She was referred to the ER for admission. She is notably thrombocytopenic on admission, though has done this with prior treatments. She had a EDEL which did not show a PFO or evidence of clot and has been on telemetry without arrhythmia. She has had periods of hallucinations, and apparently there is some concern of mild baseline dementia. Currently she is very pleasant and able to tell me details of her therapy to some degree. She reports that this is her off week. Allergies/Medications Medication: Acetaminophen (Tylenol Tab*) 650 mg PO Q4H PRN PRN Reason: PAIN - MILD Last Admin: 04/25/19 22:17 Dose: 650 mg Aspirin (Aspirin 81 Mg Chew Tab*) 81 mg PO DAILY [facility] Last Admin: 04/25/19 15:42 Dose: 81 mg Atorvastatin Calcium (Lipitor*) 10 mg PO DAILY [facility] Last Admin: 04/25/19 15:42 Dose: 10 mg Clopidogrel Bisulfate (Plavix Tab*) 75 mg PO DAILY [facility] Last Admin: 04/25/19 15:38 Dose: 75 mg Melatonin (Melatonin) 3 mg PO BEDTIME [facility] Last Admin: 04/25/19 22:17 Dose: 3 mg Metoprolol Succinate (Toprol Xl Tab*) 50 mg PO DAILY [facility] Last Admin: 04/25/19 15:41 Dose: 50 mg Pantoprazole Sodium (Protonix Tab*) 40 mg PO DAILY [facility] Last Admin: 04/25/19 15:41 Dose: 40 mg Polyethylene Glycol/Electrolytes (Miralax*) 17 gm PO DAILY PRN PRN Reason: CONSTIPATION Tramadol HCl (Ultram*) 50 mg PO BEDTIME PRN PRN Reason: PAIN - MODERATE Last Admin: 04/24/19 21:27 Dose: 50 mg Allergies/Adverse Reactions: Allergies Allergy/AdvReac Type Severity Reaction Status Date / Time Sulfa (Sulfonamide Allergy Rash And Verified 04/24/19 11:49 Antibiotics) Itching History - Past Medical History Other History: HTN. MM. CKD. mild . bilateral knee replacements. cataract surgery - Family History Hx Family Cancer: No - Social History Hx Alcohol Use: No Hx Tobacco Use: No Other Social History: living alone in [place] Review of Systems - Review of Systems General Comments: mild confusion, back pain (though improved after RT), mild neuropathy with treatment, none now, mild fatigue. otherwise neg ROS Physical Exam - Physical Exam Physical Examination: = Vital Signs Temp Pulse Resp BP Pulse Ox 97.6 F 81 16 145/75 100 04/26/19 03:22 04/26/19 03:22 04/26/19 03:22 04/26/19 03:22 04/26/19 03:22 sitting up in nad perr eomi op moist cta bl s1 s2 distant but regular soft nt +bs no le edema A+Ox 3, fuzzy on a few details but oriented, did not ambulate but grossly nonfocal neurological exam. Results - Lab Results Lab Results: 04/24/19 04/24/19 04/24/19 11:37 11:37 11:37 WBC 9.1 RBC 3.12 L Hgb 10.1 L Hct 30 L MCV 95 MCH 33 H MCHC 34 RDW 16 H Plt Count 76 L MPV 11.3 H Neut % (Auto) 83.9 Lymph % (Auto) 7.1 [place] % (Auto) 8.4 Eos % (Auto) 0.3 Baso % (Auto) 0.3 Absolute Neuts (auto) 7.7 Absolute Lymphs (auto) 0.6 L Absolute Monos (auto) 0.8 Absolute Eos (auto) 0.0 Absolute Basos (auto) 0.0 Absolute Nucleated RBC 0.0 Nucleated RBC % 0.4 Large Platelets Present ESR INR (Anticoag Therapy) 0.97 Sodium 129 L Potassium 4.0 Chloride 98 L Carbon Dioxide 24 Anion Gap 7 BUN 27 H Creatinine 1.35 H Est GFR ( Amer) 45.8 Est GFR (Non-Af Amer) 37.8 BUN/Creatinine Ratio 20.0 Glucose 124 H Serum Osmolality Calcium 9.0 Total Bilirubin 0.80 AST 11 L ALT 19 Alkaline Phosphatase 92 C-Reactive Protein 1.95 Total Protein 5.6 L Albumin 3.6 Globulin 2.0 Albumin/Globulin Ratio 1.8 Triglycerides Cholesterol LDL Cholesterol HDL Cholesterol 04/24/19 04/25/19 04/25/19 11:37 09:06 09:06 WBC 8.0 RBC 2.69 L Hgb 8.9 L Hct 25 L MCV 94 MCH 33 H MCHC 35 RDW 16 H Plt Count 54 L MPV 11.1 H Neut % (Auto) 83.4 Lymph % (Auto) 8.2 [place] % (Auto) 7.9 Eos % (Auto) 0.4 Baso % (Auto) 0.1 Absolute Neuts (auto) 6.6 Absolute Lymphs (auto) 0.7 L Absolute Monos (auto) 0.6 Absolute Eos (auto) 0.0 Absolute Basos (auto) 0.0 Absolute Nucleated RBC 0.0 Nucleated RBC % 0.1 Large Platelets ESR 11 INR (Anticoag Therapy) Sodium 126 L Potassium 3.8 Chloride 97 L Carbon Dioxide 24 Anion Gap 5 BUN 22 Creatinine 1.08 H Est GFR ( Amer) 59.2 Est GFR (Non-Af Amer) 48.9 BUN/Creatinine Ratio 20.4 H Glucose 81 Serum Osmolality Calcium 8.3 L Total Bilirubin AST ALT Alkaline Phosphatase C-Reactive Protein Total Protein Albumin Globulin Albumin/Globulin Ratio Triglycerides 151 Cholesterol 152 LDL Cholesterol 56 HDL Cholesterol 65.9 04/26/19 04/26/19 04/26/19 06:42 06:42 06:42 WBC 7.6 RBC 2.63 L Hgb 8.8 L Hct 25 L MCV 94 MCH 33 H MCHC 36 RDW 16 H Plt Count 56 L MPV 11.5 H Neut % (Auto) 80.6 Lymph % (Auto) 8.9 [place] % (Auto) 9.5 Eos % (Auto) 0.7 Baso % (Auto) 0.3 Absolute Neuts (auto) 6.1 Absolute Lymphs (auto) 0.7 L Absolute Monos (auto) 0.7 Absolute Eos (auto) 0.1 Absolute Basos (auto) 0.0 Absolute Nucleated RBC 0.0 Nucleated RBC % 0.1 Large Platelets ESR INR (Anticoag Therapy) Sodium 125 L Potassium 3.7 Chloride 96 L Carbon Dioxide 23 Anion Gap 6 BUN 21 Creatinine 1.17 H Est GFR ( Amer) 54.0 Est GFR (Non-Af Amer) 44.6 BUN/Creatinine Ratio 17.9 Glucose 89 Serum Osmolality 262 L Calcium 8.4 L Total Bilirubin AST ALT Alkaline Phosphatase C-Reactive Protein Total Protein Albumin Globulin Albumin/Globulin Ratio Triglycerides Cholesterol LDL Cholesterol HDL Cholesterol Assessment and Plan Impression: 78 yo F w IgG lambda (?light chain only) disease on velcade/dexamethasone with excellent response in light chains (211-->9.5) presenting with multiple strokes. The source to date has not been delineated, and she is planned for dual antiplatelet therapy x 3 weeks, then aspirin. In terms of her disease, I would like to repeat her light chains and SPEP here and get more specific details of her therapy, but it does appear that she is tolerating well with good control. Her daughter is wishing to move her to [place] for therapy here, which is completely reasonable. Her current thrombocytopenia is most likely related to her velcade therapy (she reports that she was treated last week and this is her week off). In terms of the hyponatremia, with very low light chains and negative SPEP I do not think we can call this pseudohyponatremia at this point, and it should be investigated and managed further prior to discharge as it is currently falling. Please arrange follow up for patient in my office next week after discharge. Please try to obtain pathology and initial consultation reports from primary oncologist.
[2019-04-26] MEDS: Aspirin 81 mg CHEW TAB* 81 MG TAB.CHEW PO SCH (09:17)
[2019-04-26] MEDS: Acetaminophen TAB* 325 MG PO PRN (09:17)
[2019-04-26] MEDS: Clopidogrel TAB* 75 MG PO SCH (09:18)
[2019-04-26] MEDS: Pantoprazole TAB * 40 MG TAB PO SCH (09:18)
[2019-04-26] MEDS: Atorvastatin* 10 MG TAB PO SCH (09:18)
[2019-04-26] MEDS: Metoprolol Succinate XL TAB* 50 MG PO SCH (09:34)
--- NOTE | 2019-04-26 15:31 | CONSULT ---
Consult Consult: Consult requested for: Hyponatremia Consult requested by: Dr. Temple, Hospitalist Performed by Dr. Kaya Lopez, [facility] Nephrology 04/26/2019 78 YO WF With Hyponatremia. She has been dealing with IgG lambda light chain myeloma s/p palliative RT & Velcade/dexamethasone, follows in [place]. Came to [place] t spend time with her kids. She was admitted with abnormal Brain MR, likely new multiple emboli. Myeloma was diagnosed 2018. 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 Her K/L ratio then was 2.3/214 Brain MRI~04/23/2019, showed multiple embolic strokes, s/p EDEL didnt cardiac source. Family described symptoms of wobbly gait and delirium at times. She was seen by Neurology & Oncology Of note, Sodium dropped 129~04/24, 126~04/25 &125~04/26. Serum Osm 262, UOsm 427 & Kaleigh 34., Serum Protein is only 5.6. FLC ratio is 0.7 Ok I believe this case is true HypoNa, SIADH as a cause I discussed this case with her Server Support Technician Dr. Hand , [place], who gave me his input that she had pseudo hyponatremia before, then her FLC ratio was 2.3/214. Now Myeloma seems responded to Rx and its likely true Hypo-Na PMH: Myeloma Mild Dyslipidemia HTN HomeMeds: Medication Instructions Recorded Confirmed Type Acyclovir* [Zovirax 400 MG TAB*] 400 mg PO BID 04/24/19 04/24/19 History Atorvastatin* [Lipitor*] 10 mg PO DAILY 04/24/19 04/24/19 History Dexamethasone [Decadron] 4 mg PO SEE INSTRUCTIONS 04/24/19 04/24/19 History Metoprolol Succinate XL TAB* 50 mg PO DAILY 04/24/19 04/24/19 History [Toprol XL TAB*] Omeprazole 20 mg PO DAILY 04/24/19 04/24/19 History traMADol TAB* [Ultram*] 50 - 400 mg PO BEDTIME 04/24/19 04/24/19 History Hospital Meds: Acetaminophen (Tylenol Tab*) 650 mg PO Q4H PRN PRN Reason: PAIN - MILD Last Admin: 04/26/19 09:17 Dose: 650 mg Aspirin (Aspirin 81 Mg Chew Tab*) 81 mg PO DAILY [facility] Last Admin: 04/26/19 09:17 Dose: 81 mg Atorvastatin Calcium (Lipitor*) 10 mg PO DAILY [facility] Last Admin: 04/26/19 09:18 Dose: 10 mg Clopidogrel Bisulfate (Plavix Tab*) 75 mg PO DAILY [facility] Last Admin: 04/26/19 09:18 Dose: 75 mg Melatonin (Melatonin) 3 mg PO BEDTIME [facility] Last Admin: 04/25/19 22:17 Dose: 3 mg Metoprolol Succinate (Toprol Xl Tab*) 50 mg PO DAILY [facility] Last Admin: 04/26/19 09:34 Dose: Not Given Pantoprazole Sodium (Protonix Tab*) 40 mg PO DAILY [facility] Last Admin: 04/26/19 09:18 Dose: 40 mg Polyethylene Glycol/Electrolytes (Miralax*) 17 gm PO DAILY PRN PRN Reason: CONSTIPATION Tramadol HCl (Ultram*) 50 mg PO BEDTIME PRN PRN Reason: PAIN - MODERATE Last Admin: 04/24/19 21:27 Dose: 50 mg Allergies Sulfa (Sulfonamide Antibiotics) Allergy (Verified 04/24/19 11:49) Rash And Itching Social History: Denied Alcohol, smoking. No IVDA. Family History: Negative for Dialysis, ESRD or Renal Transplant. Positive for HTN & DM 12-Point Review of System obtained: Constitutional: Fatigue. No fever no weight loss Eyes No blurry vision. No red eye CV: No SOB at rest or exertion, no chest pain no syncope or edema Respiratory: No SOB at rest no cough no wheezing G.I: no diarrhea no nausea no vomiting no pain no blood per rectum no burning no obstruction symptoms Skin no rash Neurology Unsteady gait. Delirium at times Endocrine no diabetes, no heat or cold intolerance Hem/Lymphatic no bleeding no lymph nodes swelling Immune/Allergy no allergic reactions Musculoskeletal: No arthritis, no swelling Psych no anxiety no depression no hallucination Objective: Temp Pulse Resp BP Pulse Ox 97.6 F 81 16 145/75 100 04/26/19 03:22 04/26/19 03:22 04/26/19 03:22 04/26/19 03:22 04/26/19 03:22 10 Point multi system exam: Constitutional Alert Oriented x 2 HEENT: No Conjunctivitis Abdomen Soft Abdomen No Ascites Heart: NSR, No LE Edema, No murmur Lungs: Clear to auscultation Extremities: No edema, no rash Skin no rash Neurology No deficit. CN intact Hem/Lymph: no palpable lymph nodes Musculoskeletal: No joint swelling Laboratory Reviewed Sodium 125 mmol/L (135-145) L 04/26/19 06:42 Potassium 3.7 mmol/L (3.5-5.0) 04/26/19 06:42 BUN 21 mg/dL (6-24) 04/26/19 06:42 Creatinine 1.17 mg/dL (0.51-0.95) H 04/26/19 06:42 Calcium 8.4 mg/dL (8.6-10.3) L 04/26/19 06:42 AST 11 U/L (13-39) L 04/24/19 11:37 ALT 19 U/L (7-52) 04/24/19 11:37 Triglycerides 151 mg/dL 04/25/19 09:06 Cholesterol 152 mg/dL 04/25/19 09:06 LDL Cholesterol 56 mg/dL 04/25/19 09:06 Assessment and Plan: True Hypo-Na, likely SIADH. This isn't Pseudo HypoNa Water restriction < 2L/d Strat Ure-Na 15 gm 1 Packet PO BID She & her family were informed about lab/radiology results & prognosis. All questions were answered. They were made part of the treatment plan. Case discussed with primary team and her Server Support Technician
--- NOTE | 2019-04-26 16:23 | CONSULT ---
Palliative / Hospice Consult Ordering Provider: Satya Temple - PCP-none locally Referal Reason: Goals of care/PEG/no narcotics - Subjective Code Status: DNR Advance Directives Location: No Advance Directives MOLST Part A Completed: Yes - on chart MOLST Part E Completed:: Yes - on chart - History or Present Illness History or Present Illness: 89yo female with multiple myeloma presents with slurred speech. PMH is significant for multiple myeloma diagnosed 01/13 via bone biopsy currently undergoing treatment with velcade and dexa, also had 10 radiation cycles, HTN, CKD 3 and mild . PSHx lives in [place], has 2 daughters who live in [place], Dorie Ahumada [phone] is HCP (one daughter works in OR at [employer]), independent ADLs, no tob use, no drug use and no alcohol use. Studies ekg-nsr, echo (EDEL) EF 55-60%, mild-mod MV regurge, mild , trace tricuspid regurge, no thrombus or PFO, inr .97, H/H 8.9/25, wbc 8, plt 54, BUN/Cr 22/1.08, egfr 48.9, esr 11, Ca 8.3 and alb 3.6. Pt admitted for mini stroke, multiple myeloma and hyponatremia. All history from pt, family and medical record. Lab Values: Abnormal Lab Results 04/24/19 04/26/19 04/26/19 11:32 06:42 06:42 WBC 7.6 RBC 2.63 L Hgb 8.8 L Hct 25 L MCV 94 MCH 33 H MCHC 36 RDW 16 H Plt Count 56 L MPV 11.5 H Neut % (Auto) 80.6 Lymph % (Auto) 8.9 Mingo % (Auto) 9.5 Eos % (Auto) 0.7 Baso % (Auto) 0.3 Absolute Neuts (auto) 6.1 Absolute Lymphs (auto) 0.7 L Absolute Monos (auto) 0.7 Absolute Eos (auto) 0.1 Absolute Basos (auto) 0.0 Absolute Nucleated RBC 0.0 Nucleated RBC % 0.1 Sodium 125 L Potassium 3.7 Chloride 96 L Carbon Dioxide 23 Anion Gap 6 BUN 21 Creatinine 1.17 H Est GFR ( Amer) 54.0 Est GFR (Non-Af Amer) 44.6 BUN/Creatinine Ratio 17.9 Glucose 89 Serum Osmolality Calcium 8.4 L Urine Osmolality U Sodium Concentration Proteinase 3 (PR3) < 0.2 Myeloperoxidase Ab < 0.2 04/26/19 04/26/19 04/26/19 06:42 11:10 11:10 WBC RBC Hgb Hct MCV MCH MCHC RDW Plt Count MPV Neut % (Auto) Lymph % (Auto) Mingo % (Auto) Eos % (Auto) Baso % (Auto) Absolute Neuts (auto) Absolute Lymphs (auto) Absolute Monos (auto) Absolute Eos (auto) Absolute Basos (auto) Absolute Nucleated RBC Nucleated RBC % Sodium Potassium Chloride Carbon Dioxide Anion Gap BUN Creatinine Est GFR ( Amer) Est GFR (Non-Af Amer) BUN/Creatinine Ratio Glucose Serum Osmolality 262 L Calcium Urine Osmolality 427 U Sodium Concentration 34 Proteinase 3 (PR3) Myeloperoxidase Ab Laboratory Last Values WBC 7.6 10^3/uL (3.5-10.8) 04/26/19 06:42 RBC 2.63 10^6 /uL (3.70-4.87) L 04/26/19 06:42 Hgb 8.8 g/dL (12.0-16.0) L 04/26/19 06:42 Hct 25 % (35-47) L 04/26/19 06:42 MCV 94 fL (80-97) 04/26/19 06:42 MCH 33 pg (27-31) H 04/26/19 06:42 MCHC 36 g/dL (31-36) 04/26/19 06:42 RDW 16 % (10-15) H 04/26/19 06:42 Plt Count 56 10^3/uL (150-450) L 04/26/19 06:42 MPV 11.5 fL (7.4-10.4) H 04/26/19 06:42 Neut % (Auto) 80.6 % 04/26/19 06:42 Lymph % (Auto) 8.9 % 04/26/19 06:42 Mingo % (Auto) 9.5 % 04/26/19 06:42 Eos % (Auto) 0.7 % 04/26/19 06:42 Baso % (Auto) 0.3 % 04/26/19 06:42 Absolute Neuts (auto) 6.1 10^3/ul (1.5-7.7) 04/26/19 06:42 Absolute Lymphs (auto) 0.7 10^3/ul (1.0-4.8) L 04/26/19 06:42 Absolute Monos (auto) 0.7 10^3/ul (0-0.8) 04/26/19 06:42 Absolute Eos (auto) 0.1 10^3/ul (0-0.6) 04/26/19 06:42 Absolute Basos (auto) 0.0 10^3/ul (0-0.2) 04/26/19 06:42 Absolute Nucleated RBC 0.0 10^3/ul 04/26/19 06:42 Nucleated RBC % 0.1 04/26/19 06:42 Large Platelets Present 04/24/19 11:37 ESR 11 mm/Hr (0-29) 04/24/19 11:37 INR (Anticoag Therapy) 0.97 (0.82-1.09) 04/24/19 11:37 Sodium 125 mmol/L (135-145) L 04/26/19 06:42 Potassium 3.7 mmol/L (3.5-5.0) 04/26/19 06:42 Chloride 96 mmol/L (101-111) L 04/26/19 06:42 Carbon Dioxide 23 mmol/L (22-32) 04/26/19 06:42 Anion Gap 6 mmol/L (2-11) 04/26/19 06:42 BUN 21 mg/dL (6-24) 04/26/19 06:42 Creatinine 1.17 mg/dL (0.51-0.95) H 04/26/19 06:42 Est GFR ( Amer) 54.0 (>60) 04/26/19 06:42 Est GFR (Non-Af Amer) 44.6 (>60) 04/26/19 06:42 BUN/Creatinine Ratio 17.9 (8-20) 04/26/19 06:42 Glucose 89 mg/dL (70-100) 04/26/19 06:42 Serum Osmolality 262 mOsm/kg (275-295) L 04/26/19 06:42 Calcium 8.4 mg/dL (8.6-10.3) L 04/26/19 06:42 Total Bilirubin 0.80 mg/dL (0.2-1.0) 04/24/19 11:37 AST 11 U/L (13-39) L 04/24/19 11:37 ALT 19 U/L (7-52) 04/24/19 11:37 Alkaline Phosphatase 92 U/L (34-104) 04/24/19 11:37 C-Reactive Protein 1.95 mg/L (<8.01) 04/24/19 11:37 Total Protein 5.6 g/dL (6.4-8.9) L 04/24/19 11:37 Albumin 3.6 g/dL (3.2-5.2) 04/24/19 11:37 Globulin 2.0 g/dL (2-4) 04/24/19 11:37 Albumin/Globulin Ratio 1.8 (1-3) 04/24/19 11:37 Triglycerides 151 mg/dL 04/25/19 09:06 Cholesterol 152 mg/dL 04/25/19 09:06 LDL Cholesterol 56 mg/dL 04/25/19 09:06 HDL Cholesterol 65.9 mg/dL 04/25/19 09:06 Urine Osmolality 427 mOsm/kg (100-1150) 04/26/19 11:10 U Sodium Concentration 34 mmol/L 04/26/19 11:10 Proteinase 3 (PR3) < 0.2 U 04/24/19 11:32 Myeloperoxidase Ab < 0.2 U 04/24/19 11:32 - Objective Active Medications: Acetaminophen (Tylenol Tab*) 650 mg PO Q4H PRN PRN Reason: PAIN - MILD Last Admin: 04/26/19 09:17 Dose: 650 mg Aspirin (Aspirin 81 Mg Chew Tab*) 81 mg PO DAILY [facility] Last Admin: 04/26/19 09:17 Dose: 81 mg Atorvastatin Calcium (Lipitor*) 10 mg PO DAILY [facility] Last Admin: 04/26/19 09:18 Dose: 10 mg Clopidogrel Bisulfate (Plavix Tab*) 75 mg PO DAILY [facility] Last Admin: 04/26/19 09:18 Dose: 75 mg Melatonin (Melatonin) 3 mg PO BEDTIME [facility] Last Admin: 04/25/19 22:17 Dose: 3 mg Metoprolol Succinate (Toprol Xl Tab*) 50 mg PO DAILY [facility] Last Admin: 04/26/19 09:34 Dose: Not Given Pantoprazole Sodium (Protonix Tab*) 40 mg PO DAILY [facility] Last Admin: 04/26/19 09:18 Dose: 40 mg Polyethylene Glycol/Electrolytes (Miralax*) 17 gm PO DAILY PRN PRN Reason: CONSTIPATION Tramadol HCl (Ultram*) 50 mg PO BEDTIME PRN PRN Reason: PAIN - MODERATE Last Admin: 04/24/19 21:27 Dose: 50 mg Vital Signs: Vital Signs: Temp Pulse Resp BP Pulse Ox 97.7 F 83 16 123/44 100 04/26/19 15:24 04/26/19 15:24 04/26/19 15:24 04/26/19 15:24 04/26/19 15:24 Patient Weight: Weight 55.883 kg Intake and Output: Intake & Output 04/24/19 04/25/19 04/26/19 04/27/19 06:59 06:59 06:59 06:59 Intake Total 240 1015 480 Output Total 200 150 Balance 40 865 480 Weight 55.883 kg Intake: IV Fluids 75 IVPB 700 normal saline 700 Oral 240 240 480 Output: Urine 200 150 Other: Estimated Void Small Small # Bowel Movements 1 Estimated Stool Amount Large # Voids 2 ADLs: Meal Record Start: 04/24/19 17: 00 Freq: DAILY@0900,1400,1800 Status: Active Protocol: Created 04/24/19 17:00 System (Rec: 04/24/19 17:00 System [id number]) Document 04/24/19 18:00 (Rec: 04/24/19 18:18 [email or web address]) Document 04/25/19 09:00 [id number] (Rec: 04/25/19 11:15 [id number]) Document 04/25/19 14:00 [id number] (Rec: 04/25/19 14:03 [id number] TELE-C07) Document 04/25/19 17:40 [id number] (Rec: 04/25/19 17:40 [id number] TELE-C07) Document 04/25/19 17:58 [id number] (Rec: 04/25/19 17:59 [id number] TELE-C07) Document 04/26/19 09:00 [id number] (Rec: 04/26/19 09:30 [id number] [email or web address]) Document 04/26/19 13:36 [id number] (Rec: 04/26/19 13:36 [id number] [email or web address]) Intake and Output Start: 04/24/19 11: 28 Freq: Status: Active Protocol: Created 04/24/19 11:28 System (Rec: 04/24/19 11:28 System [id number]) Intake and Output Start: 04/24/19 17: 00 Freq: DAILY@0600,1400,2200 Status: Active Protocol: Created 04/24/19 17:00 System (Rec: 04/24/19 17:00 System [email or web address]) Document 04/24/19 21:56 [id number] (Rec: 04/24/19 21:57 [id number] TELE-C09) Document 04/25/19 06:00 [id number] (Rec: 04/25/19 06:37 [id number] TELE-C09) Document 04/25/19 14:00 [id number] (Rec: 04/25/19 14:03 [id number] TELE-C07) Document 04/25/19 22:00 [id number] (Rec: 04/25/19 22:57 [id number] TELE-C07) Document 04/26/19 06:00 [id number] (Rec: 04/26/19 06:02 [id number] TELE-C07) Document 04/26/19 13:37 [id number] (Rec: 04/26/19 13:37 [id number] TELE-C07) Head: Normal Eyes: No Scleral Icterus Ears/Nose/Mouth/Throat: NL Teeth, Lips, Gums Neck: NL Appearance and Movements; NL JVP Cardiovascular: NL Sounds; No Murmurs; No JVD Respiratory: Symmetrical Chest Expansion and Respiratory Effort Abdominal: NL Sounds; No Tenderness; No Distention Extremities: No Edema Neurological: - - alert to self - Assessment Assessment: 78yo female with multiple myeloma, multiple embolic strokes and hyponatremia - Plan Consult Plan (MU): Palliative Plan: Long discussion with daughter and son in law about goals of care. Neither family is set up to provide 24/7 care with pt's current health issues. They are interested in [facility] and a list of places was given. After [facility] they are hoping pt can move in with daughter. Pt is not going to be able to live on her own. Family has met with social work supervisor and received some financial information. Hospice information/brochure given for the future. Daughter was familiar with hospice residence near [place] with 2 beds that is free. Explained it was likely staffed by volunteers which is different than [facility] in [place]. 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 Encouraged family to reach out to [facility] and once involved with [facility] there are nurse navigators and cancer resource center. Also gave them information about outpatient palliative care. Family is overwhelmed with pts declining health and trying to find services. Pt is not eligible for hospice if she wants to pursue treatment. KPS 50%, PPS 50% - Time On Unit Date of Evaluation: 04/26/19 Hospice Consult Time in: 14:00 Hospice Consult Time Out: 15:00 Hospice Consult Time Total: 60 > 50% of Time Spend In Counseling or Coordinating Care: Yes
[2019-04-26 17:18] LABS: BUN/Creatinine Ratio 18.2 (8-20); Calcium 8.5 mg/dL (8.6-10.3); EGFR Non-African American 47.9 (>60); Potassium 3.7 mmol/L (3.5-5.0)
--- NOTE | 2019-04-26 18:05 | PN ---
Subjective Date of Service: 04/26/19 Interval History: Patient was very delirious last night when her daughter left, she saw cats and dogs in the room, she heard music playing in the room. This morning, when I saw her with her daughter around, she didn't have any hallucinations. Objective Active Medications: Acetaminophen (Tylenol Tab*) 650 mg PO Q4H PRN PRN Reason: PAIN - MILD Last Admin: 04/26/19 09:17 Dose: 650 mg Aspirin (Aspirin 81 Mg Chew Tab*) 81 mg PO DAILY [facility] Last Admin: 04/26/19 09:17 Dose: 81 mg Atorvastatin Calcium (Lipitor*) 10 mg PO DAILY [facility] Last Admin: 04/26/19 09:18 Dose: 10 mg Clopidogrel Bisulfate (Plavix Tab*) 75 mg PO DAILY [facility] Last Admin: 04/26/19 09:18 Dose: 75 mg Melatonin (Melatonin) 3 mg PO BEDTIME [facility] Last Admin: 04/25/19 22:17 Dose: 3 mg Metoprolol Succinate (Toprol Xl Tab*) 50 mg PO DAILY [facility] Last Admin: 04/26/19 09:34 Dose: Not Given Pantoprazole Sodium (Protonix Tab*) 40 mg PO DAILY [facility] Last Admin: 04/26/19 09:18 Dose: 40 mg Polyethylene Glycol/Electrolytes (Miralax*) 17 gm PO DAILY PRN PRN Reason: CONSTIPATION Urea (Ure-Na (Nf)) 15 gm PO BID [facility] Vital Signs - 8 hr 04/26/19 04/26/19 04/26/19 11:00 11:35 15:24 Temperature 97.7 F 97.7 F Pulse Rate 74 83 Respiratory 18 16 Rate Blood Pressure 112/50 133/53 123/44 (mmHg) O2 Sat by Pulse 99 100 Oximetry Oxygen Devices in Use Now: None Exam: Appearance: frail appearing woman not in NAD, alert and interactive Ears/Nose/Mouth/Throat: Clear Oropharnyx, Mucous Membranes Moist Neck: no carotid bruits Respiratory: Symmetrical Chest Expansion and Respiratory Effort, clear on auscultation Cardiovascular: NL Sounds; early systolic murmur in LSE; No JVD, RRR Extremities: No Edema Neurological: Alert and Oriented x 4, but slow No pronator drift Result Diagrams: 04/27/19 05:08 04/27/19 05:08 Additional Lab and Data: INR 0.97 Globulin normal range Liver function normal Microbiology and Other Data: None Diagnostic Imaging: MRI brain 04/23/2019: bilateral punctate late acute to early subacute supra and infratentorial infarct which is possibly cardioembolic. EKG Data: EKG: normal sinus rhythm. Assess/Plan/Problems-Billing Assessment: Jackie Freedman is a 78 y/o female with multiple myeloma under treatment with velcade and dexa, HTN, CKD stage 3, presented to [facility] for slurring speech for 1 week duration, found to have late acute to early subacute stroke supra and infratentorial infarct in MRI brain, also found to have hyponatremia likely SIADH. - Patient Problems (1) Hallucination Current Visit: Yes Status: Acute Code(s): R44.3 - HALLUCINATIONS, UNSPECIFIED SNOMED Code(s): 3966073 Comment: - concern for delirium, multifactorial: new environment, med use including tramadol and acyclovir, lack of sleep - will stop tramadol and acyclovir for now - frequent reorientation - melatonin for night time sleep - the presence of her daughter or other familiar people definitely help with her orientation (2) Stroke Current Visit: Yes Status: Acute Code(s): I63.9 - CEREBRAL INFARCTION, UNSPECIFIED SNOMED Code(s): 242342256 Comment: - late acute to early subaccute infarct showed in MRI, cardioembolic likely, other diff including vasculitis - EDEL revealed no clots, so far telemetry showed no AFib - autoimmune workup pending - DAPT for 3 weeks (3) Hyponatremia Current Visit: Yes Status: Acute Code(s): E87.1 - HYPO-OSMOLALITY AND HYPONATREMIA SNOMED Code(s): 92145891 Comment: - SIADH likely - appreciate nephrology recs, will start sodium replacement - traced record from [place], na was normalized after hospitalization for pseudohyponatremia in Feb (4) Thrombocytopenia Current Visit: Yes Status: Acute Code(s): D69.6 - THROMBOCYTOPENIA, UNSPECIFIED SNOMED Code(s): 452098277 Comment: relate to ongoing chemotherapy watch for now (5) Multiple myeloma Current Visit: Yes Status: Acute Code(s): C90.00 - MULTIPLE MYELOMA NOT HAVING ACHIEVED REMISSION SNOMED Code(s): 330541764 Comment: - light chain multiple myeloma, used to follow Dr. Spangler - on Velcade and dexa, this week is off week - appreciate onco recs, awaiting repeat myeloma workup (6) Hypertension Current Visit: Yes Status: Acute Code(s): I10 - ESSENTIAL (PRIMARY) HYPERTENSION SNOMED Code(s): 72618042 Comment: - well controlled (7) CKD (chronic kidney disease) Current Visit: Yes Status: Acute Code(s): N18.9 - CHRONIC KIDNEY DISEASE, UNSPECIFIED SNOMED Code(s): 985850750 Comment: - CKD stage 3 - creatinine downtrending (8) DVT prophylaxis Current Visit: Yes Status: Acute Code(s): Z29.9 - ENCOUNTER FOR PROPHYLACTIC MEASURES, UNSPECIFIED SNOMED Code(s): 401377175 Status and Disposition: Inpatient Medicine. Attestation Documenting Resident: Elham Vail Supervising Physician: Satya Temple Attending/Supervising Physician Comment: Patient's hyponatremia assessed by Dr. Muñoz. Also repeated labs by usual method and whole blood method, after discussion w/ Dr. Blanco. She has true hyponatremia, now on fluid restriction and Ure-Na. Delirium likely due to low Na. Doing well otherwise. Attestation: This service has been performed in part by a resident under the direction of a teaching physician.I, Satya Temple, performed the service, or was physically present during the critical, or ospina portions of the service, furnished by the resident. I participated in the management of the patient.
--- NOTE | 2019-04-26 18:34 | CONS ---
NEUROLOGY CONSULT FOLLOWUP: DATE OF FOLLOWUP: 04/26/19 LOCATION: She is an inpatient in [facility]. HOSPITALISTS: Dr. Vail and Dr. Temple. CHIEF COMPLAINT: Multiple strokes. INTERVAL HISTORY: Since yesterday Jackie has done a bit better according to her daughter. She has not been as delirious today and does not appear to be hallucinating as much. Apparently, she had a rough night at the nursing station in a recliner to be kept an eye on. MEDICATIONS: Medications are reviewed and she is on: 1. Aspirin 81 mg p.o. daily. 2. Atorvastatin 10 mg p.o. daily. 3. Plavix 75 mg p.o. daily. 4. Metoprolol XL 50 mg p.o. daily. 5. Protonix 40 mg p.o. daily. 6. Tramadol 50 mg p.o. q.h.s. as needed for pain. PHYSICAL EXAM: Limited exam. She is in her recliner. Temperature 97.7, blood pressure 123/44, heart rate 80 and regular. Speech is perhaps minimally dysarthric. Language is fluent. Attention and concentration are poor. LABORATORY DATA: Today is normal for a CBC with a fairly stable hemoglobin at 8.8 and platelet count is down to 56,000, which is up from 54,000 yesterday. Sedimentation rate on 04/24/19 was normal at 11. Chemistries today notable for sodium of 125, slightly down from yesterday when it was 126. Consultations from Dr. Lopez and Dr. Blood are reviewed. 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 Dr. Blood is taking over care of her myeloma. IMPRESSION: Impression is of multiple small cerebrovascular events, which are apparently cardioembolic. There has been no cardiac source found, however. Velcade is listed as having thrombotic microangiopathy as a complication, so I do not think that is entirely out of the picture. I have not been able to find much on that looking to the literature and I will continue to look for reports. In the meantime, I recommend dual antiplatelet therapy for a total of 21 days and an aspirin monotherapy. Her antineutrophil antibodies are still pending. [id number]/[facility] #: [id number] [facility]
[2019-04-26] MEDS: URE NA PO SCH (20:37)
[2019-04-26] MEDS: Melatonin 3 MG TAB PO SCH (20:37)
[2019-04-26] MEDS: traMADol TAB* 50 MG PO PRN (20:40)
[2019-04-27 05:33] LABS: ABS Eosinophils 0.1 10^3/ul (0-0.6); ABS Lymphocytes 0.5 10^3/ul (1.0-4.8); ABS Monocytes 0.7 10^3/ul (0-0.8); ABS Neutrophils 5.7 10^3/ul (1.5-7.7); Eosinophil % 1.1 %; Hematocrit 23 % (35-47); Hemoglobin 8.1 g/dL (12.0-16.0); Lymphocyte % 7.4 %; Mean Corpuscular HGB Conc 35 g/dL (31-36); Mean Corpuscular Hemoglobin 33 pg (27-31); Mean Corpuscular Volume 94 fL (80-97); Nucleated Red Blood Cells % 0.1; Platelet Count 62 10^3/uL (150-450); Red Blood Count 2.45 10^6 /uL (3.70-4.87); Red Cell Distribution Width 16 % (10-15)
[2019-04-27 05:41] LABS: Calcium 8.4 mg/dL (8.6-10.3); Magnesium 1.9 mg/dL (1.9-2.7); Potassium 3.5 mmol/L (3.5-5.0)
[2019-04-27 05:47] LABS: BUN/Creatinine Ratio 30.6 (8-20); EGFR African American 59.2 (>60); EGFR Non-African American 48.9 (>60)
[2019-04-27] MEDS: Clopidogrel TAB* 75 MG PO SCH (07:23)
[2019-04-27] MEDS: Aspirin 81 mg CHEW TAB* 81 MG TAB.CHEW PO SCH (07:23)
[2019-04-27] MEDS: Atorvastatin* 10 MG TAB PO SCH (07:23)
[2019-04-27] MEDS: Metoprolol Succinate XL TAB* 50 MG PO SCH (07:23)
[2019-04-27] MEDS: URE NA PO SCH ×2 (07:24→20:33)
[2019-04-27] MEDS: Pantoprazole TAB * 40 MG TAB PO SCH (07:24)
[2019-04-27] MEDS: Acetaminophen TAB* 325 MG PO PRN (07:24)
--- NOTE | 2019-04-27 07:54 | PN ---
Progress Note - Progress Note Date of Service: 04/27/19 Note: Inpatient Nephrology follow up note: Performed by Dr. Kaya Lopez, [facility] Nephrology 04/27/2019 78 YO WF True Hyponatremia. IgG lambda light chain myeloma responding to Rx Multiple embolic strokes on MR, normal EDEL Had wobbly gait and delirium Started on Ure-Na & Sodium improved 125 to 17. Hospital Meds: Acetaminophen Aspirin Atorvastatin Clopidogrel Melatonin Metoprolol Pantoprazole Polyethylene Glycol Tramadol Urea (Ure-Na (Nf)) 15 gm PO BID Objective: Temp Pulse Resp BP Pulse Ox 97.4 F 78 16 144/55 98 04/27/19 07:40 04/27/19 07:40 04/27/19 07:40 04/27/19 07:40 04/27/19 07:40 10 Point multi system exam: Constitutional Comfortable Abdomen Soft Abdomen No Ascites Heart: NSR, No LE Edema, No murmur Lungs: Clear to auscultation Extremities: No edema, no rash Laboratory Reviewed Sodium 127 mmol/L (135-145) L 04/27/19 05:08 Potassium 3.5 mmol/L (3.5-5.0) 04/27/19 05:08 BUN 33 mg/dL (6-24) H 04/27/19 05:08 Creatinine 1.08 mg/dL (0.51-0.95) H 04/27/19 05:08 Calcium 8.4 mg/dL (8.6-10.3) L 04/27/19 05:08 Magnesium 1.9 mg/dL (1.9-2.7) 04/27/19 05:08 AST 11 U/L (13-39) L 04/24/19 11:37 ALT 19 U/L (7-52) 04/24/19 11:37 Triglycerides 151 mg/dL 04/25/19 09:06 Cholesterol 152 mg/dL 04/25/19 09:06 LDL Cholesterol 56 mg/dL 04/25/19 09:06 Assessment and Plan: True Hypo-Na, likely SIADH? related to stroke? Na better Continue Ure-Na 15 gm BID Replavce K to goal 4.0
--- NOTE | 2019-04-27 08:43 | PN ---
Progress Note - Progress Note Date of Service: 04/27/19 SOAP: Subjective: Up and eating breakfast, tells me she feels well overall. Family to be in later today EDEL with negative bubble study Hgb 8 platelets 62 Sodium a bit better at 127 k/l free light chain ratio NORMAL at 0.7 Objective: Alert and conversant CAMILORCARLOS VELAZQUEZ benign Neck supple Neurologically grossly intact Extrems w/o CCE Vital Signs - 8 hr 04/27/19 04/27/19 04/27/19 03:14 06:15 07:28 Temperature 98 F Pulse Rate 72 79 Respiratory 20 18 Rate Blood Pressure 98/67 130/58 (mmHg) O2 Sat by Pulse 98 98 Oximetry 04/27/19 07:40 Temperature 97.4 F Pulse Rate 78 Respiratory 16 Rate Blood Pressure 144/55 (mmHg) O2 Sat by Pulse 98 Oximetry Laboratory Results - last 24 hr 04/24/19 04/26/19 04/26/19 11:32 11:10 11:10 WBC RBC Hgb Hct MCV MCH MCHC RDW Plt Count MPV Neut % (Auto) Lymph % (Auto) [place] % (Auto) Eos % (Auto) Baso % (Auto) Absolute Neuts (auto) Absolute Lymphs (auto) Absolute Monos (auto) Absolute Eos (auto) Absolute Basos (auto) Absolute Nucleated RBC Nucleated RBC % Sodium Potassium Chloride Carbon Dioxide Anion Gap BUN Creatinine Est GFR ( Amer) Est GFR (Non-Af Amer) BUN/Creatinine Ratio Glucose Calcium Magnesium Urine Osmolality 427 U Sodium Concentration 34 Proteinase 3 (PR3) < 0.2 Myeloperoxidase Ab < 0.2 04/26/19 04/27/19 04/27/19 16:20 05:08 05:08 WBC 7.0 RBC 2.45 L Hgb 8.1 L Hct 23 L MCV 94 MCH 33 H MCHC 35 RDW 16 H Plt Count 62 L MPV 11.0 H Neut % (Auto) 81.6 Lymph % (Auto) 7.4 [place] % (Auto) 9.7 Eos % (Auto) 1.1 Baso % (Auto) 0.2 Absolute Neuts (auto) 5.7 Absolute Lymphs (auto) 0.5 L Absolute Monos (auto) 0.7 Absolute Eos (auto) 0.1 Absolute Basos (auto) 0.0 Absolute Nucleated RBC 0.0 Nucleated RBC % 0.1 Sodium 125 L 127 L Potassium 3.7 3.5 Chloride 95 L 99 L Carbon Dioxide 22 25 Anion Gap 8 3 BUN 20 33 H Creatinine 1.10 H 1.08 H Est GFR ( Amer) 58.0 59.2 Est GFR (Non-Af Amer) 47.9 48.9 BUN/Creatinine Ratio 18.2 30.6 H Glucose 95 79 Calcium 8.5 L 8.4 L Magnesium 1.9 Urine Osmolality U Sodium Concentration Proteinase 3 (PR3) Myeloperoxidase Ab Intake and Output Last 24 Hours 04/25/19 04/26/19 04/27/19 04/28/19 06:59 06:59 06:59 06:59 Intake Total 240 1015 940 Output Total 200 150 550 Balance 40 865 390 Weight 123 lb 3.2 oz Intake: IV Fluids 75 IVPB 700 normal saline 700 Oral 240 240 940 Output: Urine 200 150 550 Other: Estimated Void Small Medium # Bowel Movements 1 1 Estimated Stool Amount Large Small # Voids 2 2 Acetaminophen (Tylenol Tab*) 650 mg PO Q4H PRN PRN Reason: PAIN - MILD Last Admin: 04/27/19 07:24 Dose: 650 mg Aspirin (Aspirin 81 Mg Chew Tab*) 81 mg PO DAILY [facility] Last Admin: 04/27/19 07:23 Dose: 81 mg Atorvastatin Calcium (Lipitor*) 10 mg PO DAILY [facility] Last Admin: 04/27/19 07:23 Dose: 10 mg Clopidogrel Bisulfate (Plavix Tab*) 75 mg PO DAILY [facility] Last Admin: 04/27/19 07:23 Dose: 75 mg Melatonin (Melatonin) 3 mg PO BEDTIME [facility] Last Admin: 04/26/19 20:37 Dose: 3 mg Metoprolol Succinate (Toprol Xl Tab*) 50 mg PO DAILY [facility] Last Admin: 04/27/19 07:23 Dose: 50 mg Pantoprazole Sodium (Protonix Tab*) 40 mg PO DAILY [facility] Last Admin: 04/27/19 07:24 Dose: 40 mg Polyethylene Glycol/Electrolytes (Miralax*) 17 gm PO DAILY PRN PRN Reason: CONSTIPATION Tramadol HCl (Ultram*) 50 mg PO Q12H PRN PRN Reason: PAIN - MODERATE Last Admin: 04/26/19 20:40 Dose: 50 mg Urea (Ure-Na (Nf)) 15 gm PO BID [facility] Last Admin: 04/27/19 07:24 Dose: 15 gm Assessment: 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 Will be available as needed ANGELIQUE Ba MD
[2019-04-27] MEDS: traMADol TAB* 50 MG PO PRN (09:36)
--- NOTE | 2019-04-27 16:18 | CONS ---
CC: Dr. Blood; Dr. Lopez NEUROLOGY FOLLOWUP CONSULT: DATE OF FOLLOWUP: 04/27/19 LOCATION: She is in room 449. HOSPITALIST: Dr. Temple and Dr. Vail. CHIEF COMPLAINT: Multiple strokes. INTERVAL HISTORY: Since yesterday, Mrs. Freedman is doing better. She is accompanied by her daughter. She has not been hallucinating today. She slept better last night. Cognitively, she is clear. He r sodiums have been improved overall with the addition of urea. She remains on Plavix plus aspirin. MEDICATIONS: Include: 1. Atorvastatin 10 mg p.o. daily. 2. Aspirin 81 mg p.o. daily. 3. Plavix 75 mg p.o. daily. 4. Metoprolol XL 50 mg p.o. daily. 5. Protonix 40 mg p.o. daily. 6. Tramadol 50 mg p.o. q.12 hours as needed for pain. 7. Urea 15 g p.o. b.i.d. PHYSICAL EXAM: On physical examination, she is well nourished and well hydrated. Temperature 97.6, b lood pressure 102/44, heart rate 70 and regular. Oxygen saturation is 98% on room air. Tympanic membrane on the right is clear. She has atrophy of her right thenar muscles. She has decre ased pin discrimination in the right median distribution. Speech is clear. Her attention and concent ration are much improved. DIAGNOSTIC STUDIES/LAB DATA: Laboratory data includes a sodium of 127 today, creatinine 1.08 which i s an improvement. Calcium is a little bit low at 8.4. CBC is notable for a platelet count of 62,000 , which is reasonably stable from yesterday when it was 56,000. Hemoglobin is a little bit lower kvng n yesterday at 8.1 where it was 8.8 yesterday. Absolute lymphocyte count is low at 0.5. Proteinase and myeloperoxidase antibodies came back negative. IMPRESSION AND PLAN: Impression is that of multiple small vessel infarctions in multiple vascular di stributions. Cardiogenic etiology is hypothesized, but unproven. Her very small infarcts raise the possibility of some type of microangiopathy. 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 At this p oint, she is improving on dual-antiplatelet therapy. I recommend that she remain on Plavix and aspirin for a total of 21 days and then switch to aspirin m onotherapy. She might benefit from extended cardiac monitoring as an outpatient. If she shows new n eurological deterioration after her next Velcade, I would recommend repeating her MRI of the brain to look for more vascular lesions and consider the possibility of a microangiopathy. I will continue t o follow her while she is here in the hospital. [id number]/[facility] #: [id number]
--- NOTE | 2019-04-27 17:32 | PN ---
Subjective Date of Service: 04/27/19 Interval History: Patient is less confused today. Denies hallucinations. Can walk w/ minimal assist and walker. Spoke with daughter. She and other sister are working to ready home in [place] where she can stay. Family History: Unchanged from Admission Social History: Unchanged from Admission Past Medical History: Unchanged from Admission Objective Active Medications: Acetaminophen (Tylenol Tab*) 650 mg PO Q4H PRN PRN Reason: PAIN - MILD Last Admin: 04/27/19 07:24 Dose: 650 mg Aspirin (Aspirin 81 Mg Chew Tab*) 81 mg PO DAILY [facility] Last Admin: 04/27/19 07:23 Dose: 81 mg Atorvastatin Calcium (Lipitor*) 10 mg PO DAILY [facility] Last Admin: 04/27/19 07:23 Dose: 10 mg Clopidogrel Bisulfate (Plavix Tab*) 75 mg PO DAILY [facility] Last Admin: 04/27/19 07:23 Dose: 75 mg Melatonin (Melatonin) 3 mg PO BEDTIME [facility] Last Admin: 04/26/19 20:37 Dose: 3 mg Metoprolol Succinate (Toprol Xl Tab*) 50 mg PO DAILY [facility] Last Admin: 04/27/19 07:23 Dose: 50 mg Pantoprazole Sodium (Protonix Tab*) 40 mg PO DAILY [facility] Last Admin: 04/27/19 07:24 Dose: 40 mg Polyethylene Glycol/Electrolytes (Miralax*) 17 gm PO DAILY PRN PRN Reason: CONSTIPATION Tramadol HCl (Ultram*) 50 mg PO Q12H PRN PRN Reason: PAIN - MODERATE Last Admin: 04/27/19 09:36 Dose: 50 mg Urea (Ure-Na (Nf)) 15 gm PO BID [facility] Last Admin: 04/27/19 07:24 Dose: 15 gm Vital Signs - 8 hr 04/27/19 04/27/19 04/27/19 09:36 11:15 11:30 Temperature 36.4 C Pulse Rate 70 Respiratory 18 16 16 Rate Blood Pressure 102/44 (mmHg) O2 Sat by Pulse 98 Oximetry 04/27/19 15:37 Temperature 36.2 C Pulse Rate 73 Respiratory 20 Rate Blood Pressure 128/60 (mmHg) O2 Sat by Pulse 99 Oximetry Oxygen Devices in Use Now: None Appearance: Alert, talkative Ears/Nose/Mouth/Throat: Clear Oropharnyx Neck: No Thyroid Enlargement, Masses Respiratory: Symmetrical Chest Expansion and Respiratory Effort, Clear to Auscultation Cardiovascular: NL Sounds; No Murmurs; No JVD, RRR Abdominal: NL Sounds; No Tenderness; No Distention Neurological: - - oriented to self, place, situation Lines/Tubes/Other Access: Clean, Dry and Intact Peripheral IV Result Diagrams: 04/27/19 05:08 04/27/19 05:08 Assess/Plan/Problems-Billing Assessment: 78 y/o female with multiple myeloma under treatment with velcade and dexa, HTN, CKD stage 3, presented to [facility] for slurring speech for 1 week duration, found to have late acute to early subacute stroke supra and infratentorial infarct in MRI brain, also found to have hyponatremia likely SIADH. - Patient Problems (1) Hallucination Current Visit: Yes Status: Acute Priority: High Code(s): R44.3 - HALLUCINATIONS, UNSPECIFIED SNOMED Code(s): 3724073 Comment: - concern for delirium, multifactorial, but hyponatremia main issue - melatonin for night time sleep - the presence of her daughter or other familiar people definitely help with her orientation (2) Stroke Current Visit: Yes Status: Acute Priority: High Code(s): I63.9 - CEREBRAL INFARCTION, UNSPECIFIED SNOMED Code(s): 370422842 Comment: - suspected cardioembolic, but EDEL negative, no arrhythmias. - EDEL revealed no clots, so far telemetry showed no AFib - autoimmune workup pending - DAPT for 3 weeks then ASA qd (3) Hyponatremia Current Visit: Yes Status: Acute Priority: Medium Code(s): E87.1 - HYPO- OSMOLALITY AND HYPONATREMIA SNOMED Code(s): 35753168 Comment: - SIADH per nephrology - appreciate nephrology recs, now on Ure-Na - discussed with nephrology Dhruv in [place] and Dr. Muñoz (4) Thrombocytopenia Current Visit: Yes Status: Acute Priority: Low Code(s): D69.6 - THROMBOCYTOPENIA, UNSPECIFIED SNOMED Code(s): 439134350 Comment: -related to ongoing chemotherapy (5) Multiple myeloma Current Visit: Yes Status: Acute Code(s): C90.00 - MULTIPLE MYELOMA NOT HAVING ACHIEVED REMISSION SNOMED Code(s): 778562156 Comment: - light chain multiple myeloma, hematology input appreciated - on Velcade and dexa, this week is off week (6) Hypertension Current Visit: Yes Status: Acute Priority: High Code(s): I10 - ESSENTIAL ( PRIMARY) HYPERTENSION SNOMED Code(s): 20482293 Comment: - well controlled (7) CKD (chronic kidney disease) Current Visit: Yes Status: Acute Priority: Medium Code(s): N18.9 - CHRONIC KIDNEY DISEASE, UNSPECIFIED SNOMED Code(s): 932241730 Comment: - CKD stage 3 - creatinine at baseline (8) DVT prophylaxis Current Visit: Yes Status: Acute Priority: Low Code(s): Z29.9 - ENCOUNTER FOR PROPHYLACTIC MEASURES, UNSPECIFIED SNOMED Code(s): 813046064 Comment: SCDs Status and Disposition: Inpatient Medicine.
[2019-04-27] MEDS: Melatonin 3 MG TAB PO SCH (20:33)
[2019-04-27 20:56] LABS: Lambda Free Light Chain 1.92 mg/dL
[2019-04-28 07:55] LABS: BUN/Creatinine Ratio 47.8 (8-20); Calcium 8.8 mg/dL (8.6-10.3); EGFR African American 55.1 (>60); EGFR Non-African American 45.5 (>60); Potassium 3.9 mmol/L (3.5-5.0)
[2019-04-28] MEDS: Clopidogrel TAB* 75 MG PO SCH (09:25)
[2019-04-28] MEDS: Aspirin 81 mg CHEW TAB* 81 MG TAB.CHEW PO SCH (09:25)
[2019-04-28] MEDS: Atorvastatin* 10 MG TAB PO SCH (09:25)
[2019-04-28] MEDS: Pantoprazole TAB * 40 MG TAB PO SCH (09:25)
[2019-04-28] MEDS: Metoprolol Succinate XL TAB* 50 MG PO SCH (09:25)
[2019-04-28] MEDS: URE NA PO SCH ×2 (09:25→21:39)
[2019-04-28] MEDS: traMADol TAB* 50 MG PO PRN ×2 (09:25→21:40)
--- NOTE | 2019-04-28 17:12 | PN ---
Subjective Date of Service: 04/28/19 Interval History: Patient sitting in chair on assessment with daughter at bedside. Patient reports she feels well. Denies dizziness, weakness, cp, sob, nausea, vomiting. Family History: Unchanged from Admission Social History: Unchanged from Admission Past Medical History: Unchanged from Admission Objective Active Medications: Acetaminophen (Tylenol Tab*) 650 mg PO Q4H PRN PRN Reason: PAIN - MILD Last Admin: 04/27/19 07:24 Dose: 650 mg Aspirin (Aspirin 81 Mg Chew Tab*) 81 mg PO DAILY [facility] Last Admin: 04/28/19 09:25 Dose: 81 mg Atorvastatin Calcium (Lipitor*) 10 mg PO DAILY [facility] Last Admin: 04/28/19 09:25 Dose: 10 mg Clopidogrel Bisulfate (Plavix Tab*) 75 mg PO DAILY [facility] Last Admin: 04/28/19 09:25 Dose: 75 mg Melatonin (Melatonin) 3 mg PO BEDTIME [facility] Last Admin: 04/27/19 20:33 Dose: 3 mg Metoprolol Succinate (Toprol Xl Tab*) 50 mg PO DAILY [facility] Last Admin: 04/28/19 09:25 Dose: 50 mg Pantoprazole Sodium (Protonix Tab*) 40 mg PO DAILY [facility] Last Admin: 04/28/19 09:25 Dose: 40 mg Polyethylene Glycol/Electrolytes (Miralax*) 17 gm PO DAILY PRN PRN Reason: CONSTIPATION Tramadol HCl (Ultram*) 50 mg PO Q12H PRN PRN Reason: PAIN - MODERATE Last Admin: 04/28/19 09:25 Dose: 50 mg Urea (Ure-Na (Nf)) 15 gm PO BID [facility] Last Admin: 04/28/19 09:25 Dose: 15 gm Vital Signs - 8 hr 04/28/19 04/28/19 04/28/19 09:25 11:15 12:02 Temperature 98.4 F Pulse Rate 73 Respiratory 18 16 18 Rate Blood Pressure 101/46 (mmHg) O2 Sat by Pulse 99 Oximetry 04/28/19 15:15 Temperature 97.9 F Pulse Rate 74 Respiratory 18 Rate Blood Pressure 108/58 (mmHg) O2 Sat by Pulse 99 Oximetry Oxygen Devices in Use Now: None Appearance: Comfortable, NAD Eyes: No Scleral Icterus, PERRLA Ears/Nose/Mouth/Throat: Clear Oropharnyx, Mucous Membranes Moist Neck: NL Appearance and Movements; NL JVP Respiratory: Symmetrical Chest Expansion and Respiratory Effort, Clear to Auscultation Cardiovascular: NL Sounds; No Murmurs; No JVD, RRR, No Edema Abdominal: NL Sounds; No Tenderness; No Distention Lymphatic: No Cervical Adenopathy Extremities: No Edema Skin: No Rash or Ulcers Neurological: Alert and Oriented x 3, NL Muscle Strength and Tone, - - Cranial nerves grossly intact. Coordination intact Nutrition: Taking PO's Result Diagrams: 04/27/19 05:08 04/28/19 06:58 Additional Lab and Data: Laboratory Results - last 24 hr 04/26/19 04/28/19 10:31 06:58 Sodium 131 L Potassium 3.9 Chloride 100 L Carbon Dioxide 24 Anion Gap 7 BUN 55 H Creatinine 1.15 H Est GFR ( Amer) 55.1 Est GFR (Non-Af Amer) 45.5 BUN/Creatinine Ratio 47.8 H Glucose 90 Calcium 8.8 [place] Light Chain 0.9910 Lambda Light Chain 1.92 [place]/Lambda Ratio 0.5161 Microbiology and Other Data: . Diagnostic Imaging: MRI brain 04/23/2019: bilateral punctate late acute to early subacute supra and infratentorial infarct which is possibly cardioembolic. EKG Data: EKG: normal sinus rhythm. Assess/Plan/Problems-Billing Assessment: 78 y/o female with multiple myeloma under treatment with velcade and dexa, HTN, CKD stage 3, [place] [facility] [place]urring speech for 1 week duration, found to have late acute to early subacute stroke supra and infratentorial infarct in MRI brain, also found to have hyponatremia likely SIADH. - Patient Problems (1) Hallucination Comment: - Resolved. - Previous concnern for delirium, - Possibly multifactorial: hyponatremia, hospitalization (2) Hypertension Comment: - Continue home metoprolol - Well controlled (3) Hyponatremia Comment: - Sodium 131 - SIADH per nephrology - Ure-Na (4) Multiple myeloma Comment: - Hematology input appreciated - On Velcade and dexa (5) Stroke Comment: - May benefit from linq monitor as outpatient - Suspected cardioembolic, but EDEL negative, no arrhythmias. - autoimmune workup pending - DAPT for 3 weeks then ASA qd (6) Thrombocytopenia Comment: - Related to ongoing chemotherapy (7) CKD (chronic kidney disease) Comment: - CKD stage 3 - creatinine at baseline (8) DVT prophylaxis Comment: - SCDs and ambulation Status and Disposition: Inpatient Medicine. Attending: Naa Sheehan
[2019-04-28] MEDS: Melatonin 3 MG TAB PO SCH (21:40)
[2019-04-29 06:33] LABS: ABS Eosinophils 0.1 10^3/ul (0-0.6); ABS Lymphocytes 0.5 10^3/ul (1.0-4.8); ABS Monocytes 0.7 10^3/ul (0-0.8); ABS Neutrophils 3.4 10^3/ul (1.5-7.7); Eosinophil % 1.2 %; Hematocrit 23 % (35-47); Lymphocyte % 10.7 %; Mean Corpuscular HGB Conc 35 g/dL (31-36); Mean Corpuscular Hemoglobin 33 pg (27-31); Mean Corpuscular Volume 96 fL (80-97); Mean Platelet Volume 9.7 fL (7.4-10.4); Platelet Count 118 10^3/uL (150-450); Red Blood Count 2.43 10^6 /uL (3.70-4.87); Red Cell Distribution Width 17 % (10-15); White Blood Count 4.7 10^3/uL (3.5-10.8)
[2019-04-29 06:47] LABS: BUN/Creatinine Ratio 50.8 (8-20); Calcium 9.1 mg/dL (8.6-10.3); EGFR African American 47.8 (>60); EGFR Non-African American 39.5 (>60); Potassium 4.2 mmol/L (3.5-5.0)
--- NOTE | 2019-04-29 09:03 | PN ---
Subjective Date of Service: 04/29/19 Interval History: Patient reports she feels well today. Patient is hopeful for rehab and considering PMRU. Family at bedside. Family History: Unchanged from Admission Social History: Unchanged from Admission Past Medical History: Unchanged from Admission Objective Active Medications: Acetaminophen (Tylenol Tab*) 650 mg PO Q4H PRN PRN Reason: PAIN - MILD Last Admin: 04/27/19 07:24 Dose: 650 mg Aspirin (Aspirin 81 Mg Chew Tab*) 81 mg PO DAILY [facility] Last Admin: 04/28/19 09:25 Dose: 81 mg Atorvastatin Calcium (Lipitor*) 10 mg PO DAILY [facility] Last Admin: 04/28/19 09:25 Dose: 10 mg Clopidogrel Bisulfate (Plavix Tab*) 75 mg PO DAILY [facility] Last Admin: 04/28/19 09:25 Dose: 75 mg Melatonin (Melatonin) 3 mg PO BEDTIME [facility] Last Admin: 04/28/19 21:40 Dose: 3 mg Metoprolol Succinate (Toprol Xl Tab*) 50 mg PO DAILY [facility] Last Admin: 04/28/19 09:25 Dose: 50 mg Pantoprazole Sodium (Protonix Tab*) 40 mg PO DAILY [facility] Last Admin: 04/28/19 09:25 Dose: 40 mg Polyethylene Glycol/Electrolytes (Miralax*) 17 gm PO DAILY PRN PRN Reason: CONSTIPATION Tramadol HCl (Ultram*) 50 mg PO Q12H PRN PRN Reason: PAIN - MODERATE Last Admin: 04/28/19 21:40 Dose: 50 mg Urea (Ure-Na (Nf)) 15 gm PO BID [facility] Last Admin: 04/28/19 21:39 Dose: 15 gm Vital Signs - 8 hr 04/29/19 04/29/19 04/29/19 03:51 07:30 07:32 Temperature 97.6 F 97.3 F Pulse Rate 78 79 Respiratory 16 17 17 Rate Blood Pressure 124/55 123/82 (mmHg) O2 Sat by Pulse 99 96 Oximetry Oxygen Devices in Use Now: None Appearance: Comfortable, NAD Eyes: No Scleral Icterus, PERRLA Ears/Nose/Mouth/Throat: Clear Oropharnyx, Mucous Membranes Moist Neck: NL Appearance and Movements; NL JVP Respiratory: Symmetrical Chest Expansion and Respiratory Effort, Clear to Auscultation Cardiovascular: NL Sounds; No Murmurs; No JVD, No Edema Abdominal: NL Sounds; No Tenderness; No Distention Lymphatic: No Cervical Adenopathy Extremities: No Edema, No Clubbing, Cyanosis Skin: No Rash or Ulcers Neurological: Alert and Oriented x 3, NL Muscle Strength and Tone Nutrition: Taking PO's Result Diagrams: 04/29/19 06:03 04/29/19 06:03 Additional Lab and Data: L Laboratory Results - last 24 hr 04/29/19 04/29/19 06:03 06:03 WBC 4.7 RBC 2.43 L Hgb 8.0 L Hct 23 L MCV 96 MCH 33 H MCHC 35 RDW 17 H Plt Count 118 L MPV 9.7 Neut % (Auto) 72.8 Lymph % (Auto) 10.7 [place] % (Auto) 14.8 Eos % (Auto) 1.2 Baso % (Auto) 0.5 Absolute Neuts (auto) 3.4 Absolute Lymphs (auto) 0.5 L Absolute Monos (auto) 0.7 Absolute Eos (auto) 0.1 Absolute Basos (auto) 0.0 Absolute Nucleated RBC 0.0 Nucleated RBC % 0.0 Sodium 132 L Potassium 4.2 Chloride 101 Carbon Dioxide 29 Anion Gap 2 BUN 66 H Creatinine 1.30 H Est GFR ( Amer) 47.8 Est GFR (Non-Af Amer) 39.5 BUN/Creatinine Ratio 50.8 H Glucose 79 Calcium 9.1 Microbiology and Other Data: . Diagnostic Imaging: MRI brain 04/23/2019: bilateral punctate late acute to early subacute supra and infratentorial infarct which is possibly cardioembolic. EKG Data: EKG: normal sinus rhythm. Assess/Plan/Problems-Billing Assessment: 78 y/o female with multiple myeloma under treatment with velcade and dexa, HTN, CKD stage 3, presented to [facility] for slurring speech for 1 week duration, found to have late acute to early subacute stroke supra and infratentorial infarct in MRI brain, also found to have hyponatremia likely SIADH. - Patient Problems (1) Anemia Comment: - H&H trending down slightly as it was 10.1 and 30 on admission and now 8.0 and 23 - Likely secondary to multiple myeloma and esrd? (2) Hallucination Comment: - Resolved. - Previous concern for delirium, - Possibly multifactorial: hyponatremia, hospitalization (3) Hypertension Comment: - Continue home metoprolol - Well controlled (4) Hyponatremia Comment: - Sodium 132 - On fluid restriction of 1500 ml per day, but increase BUN therefore increase restriction to 2000 ml a day given she is also on Ure-Na - SIADH per nephrology (5) Multiple myeloma Comment: - Hematology input appreciated - On Velcade and dexa (6) Stroke Comment: - Requesting PMRU referral - May benefit from linq monitor as outpatient - Suspected cardioembolic, but EDEL negative, no arrhythmias. - autoimmune workup - DAPT for 3 weeks then ASA qd (7) Thrombocytopenia Comment: - PLT 118 which is improvement - Related to ongoing chemotherapy (8) CKD (chronic kidney disease) Comment: - CKD stage 3 - creatinine at baseline (9) DVT prophylaxis Comment: - SCDs and ambulation Status and Disposition: Inpatient Medicine. Attending: Naa Sheehan
[2019-04-29] MEDS: Clopidogrel TAB* 75 MG PO SCH (09:37)
[2019-04-29] MEDS: Metoprolol Succinate XL TAB* 50 MG PO SCH (09:37)
[2019-04-29] MEDS: Pantoprazole TAB * 40 MG TAB PO SCH (09:37)
[2019-04-29] MEDS: Aspirin 81 mg CHEW TAB* 81 MG TAB.CHEW PO SCH (09:37)
[2019-04-29] MEDS: Atorvastatin* 10 MG TAB PO SCH (09:37)
[2019-04-29] MEDS: URE NA PO SCH ×2 (09:38→21:17)
[2019-04-29] MEDS: traMADol TAB* 50 MG PO PRN ×2 (09:49→21:16)
[2019-04-29] MEDS: Melatonin 3 MG TAB PO SCH (21:16)
[2019-04-30 06:43] LABS: ABS Lymphocytes 0.5 10^3/ul (1.0-4.8); ABS Monocytes 0.5 10^3/ul (0-0.8); ABS Neutrophils 4.3 10^3/ul (1.5-7.7); Eosinophil % 0.6 %; Hematocrit 22 % (35-47); Hemoglobin 7.6 g/dL (12.0-16.0); Lymphocyte % 8.7 %; Mean Corpuscular HGB Conc 34 g/dL (31-36); Mean Corpuscular Hemoglobin 33 pg (27-31); Mean Corpuscular Volume 98 fL (80-97); Mean Platelet Volume 9.1 fL (7.4-10.4); Nucleated Red Blood Cells % 0.1; Platelet Count 130 10^3/uL (150-450); Red Blood Count 2.29 10^6 /uL (3.70-4.87); Red Cell Distribution Width 18 % (10-15); White Blood Count 5.4 10^3/uL (3.5-10.8)
[2019-04-30 06:48] LABS: BUN/Creatinine Ratio 51.4 (8-20); Calcium 8.7 mg/dL (8.6-10.3); EGFR African American 42.5 (>60); EGFR Non-African American 35.1 (>60); Potassium 4.1 mmol/L (3.5-5.0)
[2019-04-30] MEDS: URE NA PO SCH ×2 (09:10→20:33)
[2019-04-30] MEDS: Atorvastatin* 10 MG TAB PO SCH (09:16)
[2019-04-30] MEDS: traMADol TAB* 50 MG PO PRN ×2 (09:16→20:33)
[2019-04-30] MEDS: Clopidogrel TAB* 75 MG PO SCH (09:16)
[2019-04-30] MEDS: Pantoprazole TAB * 40 MG TAB PO SCH (09:16)
[2019-04-30] MEDS: Metoprolol Succinate XL TAB* 50 MG PO SCH (09:16)
[2019-04-30] MEDS: Aspirin 81 mg CHEW TAB* 81 MG TAB.CHEW PO SCH (09:16)
[2019-04-30] MEDS ORDERED: Acetaminophen TAB* 325 MG PO PRN (12:19)
--- NOTE | 2019-04-30 12:53 | PN ---
Progress Note - Progress Note Date of Service: 04/30/19 SOAP: Subjective: [Jackie is sleeping upon entering the room. Her daughter is present and provides all information today. She is reportedly improving, and they are hoping that she will be accepted to [facility].] Objective: [ Vital Signs: Temp Pulse Resp BP Pulse Ox 98.9 F 78 20 94/47 96 04/30/19 11:15 04/30/19 11:15 04/30/19 11:48 04/30/19 11:15 04/30/19 11:15 Acetaminophen (Tylenol Tab*) 975 mg PO TID PRN PRN Reason: PAIN - MILD Aspirin (Aspirin 81 Mg Chew Tab*) 81 mg PO DAILY [facility] Last Admin: 04/30/19 09:16 Dose: 81 mg Atorvastatin Calcium (Lipitor*) 10 mg PO DAILY [facility] Last Admin: 04/30/19 09:16 Dose: 10 mg Clopidogrel Bisulfate (Plavix Tab*) 75 mg PO DAILY [facility] Last Admin: 04/30/19 09:16 Dose: 75 mg Melatonin (Melatonin) 3 mg PO BEDTIME [facility] Last Admin: 04/29/19 21:16 Dose: 3 mg Metoprolol Succinate (Toprol Xl Tab*) 50 mg PO DAILY [facility] Last Admin: 04/30/19 09:16 Dose: 50 mg Pantoprazole Sodium (Protonix Tab*) 40 mg PO DAILY [facility] Last Admin: 04/30/19 09:16 Dose: 40 mg Polyethylene Glycol/Electrolytes (Miralax*) 17 gm PO DAILY PRN PRN Reason: CONSTIPATION Tramadol HCl (Ultram*) 50 mg PO Q12H PRN PRN Reason: PAIN - MODERATE Last Admin: 04/30/19 09:16 Dose: 50 mg Urea (Ure-Na (Nf)) 15 gm PO BID [facility] Last Admin: 04/30/19 09:10 Dose: 15 gm Laboratory Results - last 24 hr 04/30/19 04/30/19 06:24 06:24 WBC 5.4 RBC 2.29 L Hgb 7.6 L Hct 22 L MCV 98 H MCH 33 H MCHC 34 RDW 18 H Plt Count 130 L MPV 9.1 Neut % (Auto) 80.4 Lymph % (Auto) 8.7 [place] % (Auto) 9.9 Eos % (Auto) 0.6 Baso % (Auto) 0.4 Absolute Neuts (auto) 4.3 Absolute Lymphs (auto) 0.5 L Absolute Monos (auto) 0.5 Absolute Eos (auto) 0.0 Absolute Basos (auto) 0.0 Absolute Nucleated RBC 0.0 Nucleated RBC % 0.1 Sodium 133 L Potassium 4.1 Chloride 102 Carbon Dioxide 27 Anion Gap 4 BUN 74 H Creatinine 1.44 H Est GFR ( Amer) 42.5 Est GFR (Non-Af Amer) 35.1 BUN/Creatinine Ratio 51.4 H Glucose 90 Calcium 8.7 Exam: Gen: pt is resting comfortably, full exam is deferred] Assessment: [This is a 78 yo female with a relatively new diagnosis of demetrius light chain multiple myeloma now admitted with an acute CVA with hyponatremia. She is under the care of Dr Spangler in [place] who has treated her with velcade and dexamethasone with an excellent response. Her SPEP is pending but light chains have normalized. ] Plan: [1. Acute CVA - recommendations for dual antiplatelet therapy for 3 weeks by neurology followed by aspirin - pending review by [facility] for admission 2. Multiple myeloma - treated by Dr Spangler out of [place] - SPEP pending, SFLC normalized (demetrius light chains 1.92) - platelets nadired ~55K so could consider continuing her velcade therapy - however given her excellent early response it would be appropriate to hold therapy for the 3 weeks she is receiving dual antiplatelet therapy which her daughter is in agreement with - placed a phone call to review the case and recommendations with primary oncologist, Dr Spangler ([phone]) 3. Hyponatremia - improving Dispo: oncology will continue to follow along, if she moves to [place] to be closer to her family she will formally transfer care to Dr Blood, but that will depend on her recovery from this acute event and ability to return home independently
--- NOTE | 2019-04-30 17:08 | PN ---
Progress Note - Progress Note Date of Service: 04/30/19 Note: Chief complaint: Hyponatremia with hypotonicity History of present illness: I saw Mrs. Freedman in the afternoon. She was sitting up in the chair. The daughter was visiting. She feels tired after physical therapy yesterday. She is receiving a blood transfusion for anemia of 7.6 g/dL hemoglobin. Serum sodium concentration is up at the 133 mEq/L. Blood pressure is running low which is unusual for her. Daughter states that she is on metoprolol which was started for high blood pressure. Review of systems: Constitutional: Woman frail, looking chronically ill, denies fevers or chills. Feels tired. Low appetite. Cardiovascular: No chest pain or shortness of breath at rest. No swelling in her legs. GI: No nausea or vomiting, no constipation or diarrhea. Physical exam: Temp Pulse Resp BP SpO2 FiO2 97.7 F 77 18 109/50 96 04/30/19 15:15 04/30/19 15:15 04/30/19 15:15 04/30/19 15:15 04/30/19 15:15 No acute distress, fragile elderly woman looking chronically ill. Chest is clear to auscultation Heart exam shows S1-S2, regular rate and rhythm, harsh systolic murmur at apex. Trace to +1 lower extremities edema Psychiatric: Alert and oriented 3, good memory, judgment and insight appropriate. Meds: Acetaminophen (Tylenol Tab*) 975 mg PO TID PRN PRN Reason: PAIN - MILD Aspirin (Aspirin 81 Mg Chew Tab*) 81 mg PO DAILY [facility] Last Admin: 04/30/19 09:16 Dose: 81 mg Atorvastatin Calcium (Lipitor*) 10 mg PO DAILY [facility] Last Admin: 04/30/19 09:16 Dose: 10 mg Clopidogrel Bisulfate (Plavix Tab*) 75 mg PO DAILY [facility] Last Admin: 04/30/19 09:16 Dose: 75 mg Melatonin (Melatonin) 3 mg PO BEDTIME [facility] Last Admin: 04/29/19 21:16 Dose: 3 mg Metoprolol Succinate (Toprol Xl Tab*) 25 mg PO DAILY [facility] Pantoprazole Sodium (Protonix Tab*) 40 mg PO DAILY [facility] Last Admin: 04/30/19 09:16 Dose: 40 mg Polyethylene Glycol/Electrolytes (Miralax*) 17 gm PO DAILY PRN PRN Reason: CONSTIPATION Tramadol HCl (Ultram*) 50 mg PO Q12H PRN PRN Reason: PAIN - MODERATE Last Admin: 04/30/19 09:16 Dose: 50 mg Urea (Ure-Na (Nf)) 15 gm PO BID [facility] Last Admin: 04/30/19 09:10 Dose: 15 gm Laboratory Results - last 24 hr 04/29/19 04/30/19 04/30/19 06:03 06:24 06:24 WBC 5.4 RBC 2.29 L Hgb 7.6 L Hct 22 L MCV 98 H MCH 33 H MCHC 34 RDW 18 H Plt Count 130 L MPV 9.1 Neut % (Auto) 80.4 Lymph % (Auto) 8.7 [place] % (Auto) 9.9 Eos % (Auto) 0.6 Baso % (Auto) 0.4 Absolute Neuts (auto) 4.3 Absolute Lymphs (auto) 0.5 L Absolute Monos (auto) 0.5 Absolute Eos (auto) 0.0 Absolute Basos (auto) 0.0 Absolute Nucleated RBC 0.0 Nucleated RBC % 0.1 Sodium 133 L Potassium 4.1 Chloride 102 Carbon Dioxide 27 Anion Gap 4 BUN 74 H Creatinine 1.44 H Est GFR ( Amer) 42.5 Est GFR (Non-Af Amer) 35.1 BUN/Creatinine Ratio 51.4 H Glucose 90 Calcium 8.7 Blood Type A Positive Antibody Screen Crossmatch 04/30/19 06:24 WBC RBC Hgb Hct MCV MCH MCHC RDW Plt Count MPV Neut % (Auto) Lymph % (Auto) [place] % (Auto) Eos % (Auto) Baso % (Auto) Absolute Neuts (auto) Absolute Lymphs (auto) Absolute Monos (auto) Absolute Eos (auto) Absolute Basos (auto) Absolute Nucleated RBC Nucleated RBC % Sodium Potassium Chloride Carbon Dioxide Anion Gap BUN Creatinine Est GFR ( Amer) Est GFR (Non-Af Amer) BUN/Creatinine Ratio Glucose Calcium Blood Type A Positive Antibody Screen Negative Crossmatch See Detail Assessment and plan: Mrs. Adam Freedman is a very nice 78-year-old woman with recent diagnosis of multiple myeloma. She started chemotherapy in February and she had at least couple of hospitalizations the then. Her illness has been complicated with hyponatremia. Initially when she was at [place] it was felt that her hyponatremia was pseudohyponatremia secondary to multiple myeloma. Our lab uses the direct ion- selective electrodes for measurement of serum sodium concentration, so the results are accurate and not influenced by other variables. During this hospitalization she underwent an acute CVA. Followed by neurology. 1. 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 urinary osmolality was elevated with low serum sodium concentration and per chart review she was told volume depleted at that time. She is improving with osmotic diuresis driven by ure-Na. Unfortunately this medication is not covered by insurance in the outpatient. It is considered [id number] and per my research the cost is about $51 per 8 packets. Discussed with the patient and her daughter. We will have to make a plan on discharge. Continue the same. No changes at this time.check BMP in am. 2. Hypotension will decrease metoprolol succinate from 50-25 mg daily. If needed we can continue to taper to off. Heart rate is in 60s 3. Multiple myeloma continue follow-up with oncology 4. Stroke: She seems to be much improved. Continues physical therapy.
[2019-04-30 17:34] LABS: Albumin 2.8 g/dL (3.4-4.7); Albumin/Globulin Ratio 1.35; Gamma Globulin 0.4 g/dL (0.6-1.6); Total Protein(PEP) 4.9 g/dL (6.3 - 7.9)
--- NOTE | 2019-04-30 18:39 | PN ---
Subjective Date of Service: 04/30/19 Interval History: Patient feels lightheaded/dizzy upon standing, OK at rest. During physical therapy, she noted that her left arm and leg became more tired than her right, though no obvious deficit noted otherwise. Feels tired. Bilateral knees ache after therapy, which is new for her. Family History: Unchanged from Admission Social History: Unchanged from Admission Past Medical History: Unchanged from Admission Objective Active Medications: Acetaminophen (Tylenol Tab*) 975 mg PO TID PRN PRN Reason: PAIN - MILD Aspirin (Aspirin 81 Mg Chew Tab*) 81 mg PO DAILY [facility] Last Admin: 04/30/19 09:16 Dose: 81 mg Atorvastatin Calcium (Lipitor*) 10 mg PO DAILY [facility] Last Admin: 04/30/19 09:16 Dose: 10 mg Clopidogrel Bisulfate (Plavix Tab*) 75 mg PO DAILY [facility] Last Admin: 04/30/19 09:16 Dose: 75 mg Melatonin (Melatonin) 3 mg PO BEDTIME [facility] Last Admin: 04/29/19 21:16 Dose: 3 mg Metoprolol Succinate (Toprol Xl Tab*) 25 mg PO DAILY [facility] Pantoprazole Sodium (Protonix Tab*) 40 mg PO DAILY [facility] Last Admin: 04/30/19 09:16 Dose: 40 mg Polyethylene Glycol/Electrolytes (Miralax*) 17 gm PO DAILY PRN PRN Reason: CONSTIPATION Tramadol HCl (Ultram*) 50 mg PO Q12H PRN PRN Reason: PAIN - MODERATE Last Admin: 04/30/19 09:16 Dose: 50 mg Urea (Ure-Na (Nf)) 15 gm PO BID [facility] Last Admin: 04/30/19 09:10 Dose: 15 gm Vital Signs - 8 hr 04/30/19 04/30/19 04/30/19 11:15 11:48 15:15 Temperature 98.9 F 97.7 F Pulse Rate 78 77 Respiratory 20 20 18 Rate Blood Pressure 94/47 109/50 (mmHg) O2 Sat by Pulse 96 96 Oximetry Oxygen Devices in Use Now: None Appearance: This is a pale, ill appearing woman seen sitting up in the chair, no acute distress noted. Eyes: No Scleral Icterus, PERRLA Ears/Nose/Mouth/Throat: NL Teeth, Lips, Gums, Clear Oropharnyx, Mucous Membranes Moist Neck: NL Appearance and Movements; NL JVP, No Thyroid Enlargement, Masses Respiratory: Symmetrical Chest Expansion and Respiratory Effort, Clear to Auscultation Cardiovascular: NL Sounds; No Murmurs; No JVD, RRR, No Edema Abdominal: NL Sounds; No Tenderness; No Distention Lymphatic: No Cervical Adenopathy Extremities: No Edema, No Clubbing, Cyanosis Skin: No Rash or Ulcers, No Nodules or Sclerosis Neurological: Alert and Oriented x 3 Lines/Tubes/Other Access: Clean, Dry and Intact Peripheral IV Result Diagrams: 04/30/19 06:24 04/30/19 06:24 Additional Lab and Data: L Laboratory Results - last 24 hr 04/29/19 04/29/19 06:03 06:03 WBC 4.7 RBC 2.43 L Hgb 8.0 L Hct 23 L MCV 96 MCH 33 H MCHC 35 RDW 17 H Plt Count 118 L MPV 9.7 Neut % (Auto) 72.8 Lymph % (Auto) 10.7 [place] % (Auto) 14.8 Eos % (Auto) 1.2 Baso % (Auto) 0.5 Absolute Neuts (auto) 3.4 Absolute Lymphs (auto) 0.5 L Absolute Monos (auto) 0.7 Absolute Eos (auto) 0.1 Absolute Basos (auto) 0.0 Absolute Nucleated RBC 0.0 Nucleated RBC % 0.0 Sodium 132 L Potassium 4.2 Chloride 101 Carbon Dioxide 29 Anion Gap 2 BUN 66 H Creatinine 1.30 H Est GFR ( Amer) 47.8 Est GFR (Non-Af Amer) 39.5 BUN/Creatinine Ratio 50.8 H Glucose 79 Calcium 9.1 Microbiology and Other Data: . Diagnostic Imaging: MRI brain 04/23/2019: bilateral punctate late acute to early subacute supra and infratentorial infarct which is possibly cardioembolic. EKG Data: EKG: normal sinus rhythm. Assess/Plan/Problems-Billing Assessment: 78 y/o female with multiple myeloma under treatment with velcade and dexa, HTN, CKD stage 3, presented to [facility] for slurring speech for 1 week duration, found to have late acute to early subacute stroke supra and infratentorial infarct in MRI brain, also found to have hyponatremia likely SIADH. - Patient Problems (1) Anemia Current Visit: Yes Status: Acute Code(s): D64.9 - ANEMIA, UNSPECIFIED SNOMED Code(s): 421291167 Comment: - H&H trending down, ordered one unit PRBC and stool guiac. Goal hemoglobin >8 - Likely secondary to multiple myeloma and esrd. (2) CKD (chronic kidney disease) Current Visit: Yes Status: Acute Priority: Medium Code(s): N18.9 - CHRONIC KIDNEY DISEASE, UNSPECIFIED SNOMED Code(s): 862560120 Comment: - CKD stage 3 - creatinine trending up in the past several days, likely secondary to hypovolemia. Getting 1 unit PRBC today. (3) Hypertension Current Visit: Yes Status: Acute Priority: High Code(s): I10 - ESSENTIAL ( PRIMARY) HYPERTENSION SNOMED Code(s): 71006411 Comment: -Due to ongoing hypotension, tapering metoprolol to 25mg tomorrow, could possibly to discontinued after one week, depending on her BP. (4) Hyponatremia Current Visit: Yes Status: Acute Priority: Medium Code(s): E87.1 - HYPO- OSMOLALITY AND HYPONATREMIA SNOMED Code(s): 23776811 Comment: - Sodium 132 - On fluid restriction of 1500 ml per day, but increase BUN therefore increase restriction to 2000 ml a day given she is also on Ure-Na - SIADH per nephrology (5) Multiple myeloma Current Visit: Yes Status: Acute Code(s): C90.00 - MULTIPLE MYELOMA NOT HAVING ACHIEVED REMISSION SNOMED Code(s): 032442472 Comment: -Per MIKE Singh, she is reposnding well to her treatment. - Hematology input appreciated - On Velcade and dexa (6) Stroke Current Visit: Yes Status: Acute Priority: High Code(s): I63.9 - CEREBRAL INFARCTION, UNSPECIFIED SNOMED Code(s): 092337759 Comment: - Requesting PMRU referral - May benefit from linq monitor as outpatient - Suspected cardioembolic, but EDEL negative, no arrhythmias. - DAPT for 3 weeks then ASA qday (7) Thrombocytopenia Current Visit: Yes Status: Acute Priority: Low Code(s): D69.6 - THROMBOCYTOPENIA, UNSPECIFIED SNOMED Code(s): 445913584 Comment: - PLT 130 which is improvement - Related to ongoing chemotherapy (8) DVT prophylaxis Current Visit: Yes Status: Acute Priority: Low Code(s): Z29.9 - ENCOUNTER FOR PROPHYLACTIC MEASURES, UNSPECIFIED SNOMED Code(s): 847536697 Comment: - SCDs and ambulation (9) DNR (do not resuscitate) Current Visit: Yes Status: Acute Status and Disposition: Inpatient Medicine.
[2019-04-30 19:08] LABS: Hematocrit 28 % (35-47); Hemoglobin 9.5 g/dL (12.0-16.0)
[2019-04-30] MEDS: Melatonin 3 MG TAB PO SCH (20:33)
[2019-05-01 06:25] LABS: ABS Lymphocytes 0.5 10^3/ul (1.0-4.8); ABS Monocytes 0.9 10^3/ul (0-0.8); ABS Neutrophils 7.6 10^3/ul (1.5-7.7); Eosinophil % 0.1 %; Hematocrit 27 % (35-47); Hemoglobin 9.4 g/dL (12.0-16.0); Lymphocyte % 5.2 %; Mean Corpuscular HGB Conc 34 g/dL (31-36); Mean Corpuscular Hemoglobin 32 pg (27-31); Mean Corpuscular Volume 95 fL (80-97); Mean Platelet Volume 8.7 fL (7.4-10.4); Platelet Count 162 10^3/uL (150-450); Red Cell Distribution Width 18 % (10-15)
[2019-05-01 06:42] LABS: Calcium 9.2 mg/dL (8.6-10.3); EGFR African American 48.2 (>60); EGFR Non-African American 39.9 (>60); Potassium 4.2 mmol/L (3.5-5.0)
[2019-05-01] MEDS ORDERED: Metoprolol Succinate XL TAB* 25 MG PO SCH (09:00)
[2019-05-01] MEDS: Atorvastatin* 10 MG TAB PO SCH (09:54)
[2019-05-01] MEDS: Pantoprazole TAB * 40 MG TAB PO SCH (09:54)
[2019-05-01] MEDS: Aspirin 81 mg CHEW TAB* 81 MG TAB.CHEW PO SCH (09:54)
[2019-05-01] MEDS: Clopidogrel TAB* 75 MG PO SCH (09:54)
[2019-05-01] MEDS: URE NA PO SCH ×2 (09:54→20:56)
[2019-05-01] MEDS: Metoprolol Succinate XL TAB* 25 MG PO SCH (10:04)
[2019-05-01] MEDS: traMADol TAB* 50 MG PO PRN ×2 (10:15→20:56)
--- NOTE | 2019-05-01 16:43 | PN ---
Progress Note - Progress Note Date of Service: 05/01/19 Note: Chief complaint: Hyponatremia with hypotonicity History of present illness: I saw Mrs. Freedman immediately after she took a walk in the hallway, with the help of her daughter. She feels tired, and looks quite frail. Her daughter does most of the talking for her. She has poor appetite and loss of taste due to her recent chemotherapy. She feels thirsty and her fluid intake has been liberalized. She remains on Urea Ure Na 15 gm po Bid. BP still low. Review of systems: Constitutional: tired and weak, denies fevers or chills. Cardiovascular: No chest pain or shortness of breath at rest. No swelling in her legs. GI: No nausea or vomiting, no constipation or diarrhea. Physical exam: Temp Pulse Resp BP SpO2 FiO2 97.7 F 81 16 112/50 98 05/01/19 15:20 05/01/19 15:20 05/01/19 15:20 05/01/19 15:20 05/01/19 15:20 Constitutional: No acute distress, fragile elderly woman looking chronically ill. Chest is clear to auscultation Heart exam shows S1-S2, regular rate and rhythm, harsh systolic murmur at apex. Trace lower extremities edema bilaterally Psychiatric: Alert and oriented 3, good memory, judgment and insight appropriate. meds : Acetaminophen (Tylenol Tab*) 975 mg PO TID PRN PRN Reason: PAIN - MILD Aspirin (Aspirin 81 Mg Chew Tab*) 81 mg PO DAILY [facility] Last Admin: 05/01/19 09:54 Dose: 81 mg Atorvastatin Calcium (Lipitor*) 10 mg PO DAILY [facility] Last Admin: 05/01/19 09:54 Dose: 10 mg Clopidogrel Bisulfate (Plavix Tab*) 75 mg PO DAILY [facility] Last Admin: 05/01/19 09:54 Dose: 75 mg Melatonin (Melatonin) 3 mg PO BEDTIME [facility] Last Admin: 04/30/19 20:33 Dose: 3 mg Metoprolol Succinate (Toprol Xl Tab*) 25 mg PO DAILY [facility] Last Admin: 05/01/19 10:04 Dose: 25 mg Pantoprazole Sodium (Protonix Tab*) 40 mg PO DAILY [facility] Last Admin: 05/01/19 09:54 Dose: 40 mg Polyethylene Glycol/Electrolytes (Miralax*) 17 gm PO DAILY PRN PRN Reason: CONSTIPATION Last Admin: 05/01/19 09:59 Dose: 17 gm Tramadol HCl (Ultram*) 50 mg PO Q12H PRN PRN Reason: PAIN - MODERATE Last Admin: 05/01/19 10:15 Dose: 50 mg Urea (Ure-Na (Nf)) 15 gm PO BID [facility] Last Admin: 05/01/19 09:54 Dose: 15 gm Abnormal Lab Results 04/26/19 04/30/19 04/30/19 10:31 06:24 19:00 WBC RBC Hgb 9.5 L Hct 28 L MCV MCH MCHC RDW Plt Count MPV Neut % (Auto) Lymph % (Auto) [place] % (Auto) Eos % (Auto) Baso % (Auto) Absolute Neuts (auto) Absolute Lymphs (auto) Absolute Monos (auto) Absolute Eos (auto) Absolute Basos (auto) Absolute Nucleated RBC Nucleated RBC % Sodium Potassium Chloride Carbon Dioxide Anion Gap BUN Creatinine Est GFR ( Amer) Est GFR (Non-Af Amer) BUN/Creatinine Ratio Glucose Calcium Total Protein (PEP) 4.9 L Albumin (PEP) 2.8 L Albumin/Globulin (PEP) 1.35 Mzzyx-8-Fkfojjajv 0.2 Leaxr-5-Wcduqznyv 0.8 Aysr-3-Xsernzdg 0.6 L Gamma Globulins 0.4 L M-Deacon Not Reportable M-Deacon 2 Not Reportable PEP Impression See comment Blood Type A Positive Antibody Screen Negative Crossmatch See Detail 05/01/19 05/01/19 05:54 05:54 WBC 9.0 RBC 2.90 L Hgb 9.4 L Hct 27 L MCV 95 MCH 32 H MCHC 34 RDW 18 H Plt Count 162 MPV 8.7 Neut % (Auto) 84.5 Lymph % (Auto) 5.2 [place] % (Auto) 10.0 Eos % (Auto) 0.1 Baso % (Auto) 0.2 Absolute Neuts (auto) 7.6 Absolute Lymphs (auto) 0.5 L Absolute Monos (auto) 0.9 H Absolute Eos (auto) 0.0 Absolute Basos (auto) 0.0 Absolute Nucleated RBC 0.0 Nucleated RBC % 0.0 Sodium 133 L Potassium 4.2 Chloride 101 Carbon Dioxide 28 Anion Gap 4 BUN 71 H Creatinine 1.29 H Est GFR ( Amer) 48.2 Est GFR (Non-Af Amer) 39.9 BUN/Creatinine Ratio 55.0 H Glucose 116 H Calcium 9.2 Total Protein (PEP) Albumin (PEP) Albumin/Globulin (PEP) Olflc-2-Srehwapsc Mjibl-5-Epoaeznvf Xray-4-Brsdszar Gamma Globulins M-Deacon M-Deacon 2 PEP Impression Blood Type Antibody Screen Crossmatch Assessment and plan: Mrs. Adam Freedman is a very nice 78-year-old woman with recent diagnosis of multiple myeloma. She started chemotherapy in February and she had at least couple of hospitalizations the then. Her illness has been complicated with hyponatremia. During this hospitalization she underwent an acute CVA. Followed by neurology. 1. Hyponatremia with hypotonicity: improving. - Most probably due to SIADH. - start at least one high protein shake daily to increase free water excretion and continue same dose or urea for now - discussed in detail with her daughter about need for high protein diet when she goes home, maybe we will be able to decrease urea to only one pack daily. Daughter will also verify with the insurance company if they cover for it. 2. Hypotension metoprolol decreased yesterday, BP still low, HR the same . we may need to stop Metoprolol if BP remains low. 3. MM per oncology 4. LEXX improving 5. Stroke : improved . continues PT, hoping she will continue inpatient rehab. 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 urinary osmolality was elevated with low serum sodium concentration and per chart review she was told volume depleted
[2019-05-01] MEDS: Melatonin 3 MG TAB PO SCH (20:56)
--- NOTE | 2019-05-02 09:36 | DS ---
CC: Dr. Doss; Dr. Blood; Dr. Lopez; Dr. Escobar; Dr. Glover; Dr. Spangler; Primary Care Provider * DISCHARGE SUMMARY: DATE OF ADMISSION: 04/24/19 DATE OF ANTICIPATED DISCHARGE: To physiotherapy unit 05/02/19. PATIENT'S ONCOLOGIST: Dr. Spangler from [place], phone number [phone], fax [phone] DISPOSITION ON DISCHARGE: To physiotherapy unit, [facility] at [facility]. CONDITION ON DISCHARGE: Stable. DISCHARGE DIAGNOSES: 1. Multiple acute presumed cardioembolic strokes in a patent who presented with episodes of slurred speech and generalized weakness with brain MRI on 04/23 reporting bilateral punctate, late acute to early subacute supra and infratentorial infarcts raise suspicion for cardioembolic etiology. 2. An episode of altered mental status, likely due to hyponatremia that was related to syndrome of inappropriate antidiuretic hormone secretion that resolved. SECONDARY DIAGNOSES: 1. Multiple myeloma. 2. Chronic kidney disease, stage 3, due to above. 3. Hyponatremia due to syndrome of inappropriate antidiuretic hormone secretion. 4. Mild aortic stenosis. 5. Hypertension. 6. 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 MEDICATIONS AT THE TIME OF TRANSFER: To [facility] includes: 1. Acyclovir 400 mg b.i.d. that was prescribed by her primary oncologist in [place]. 2. Lipitor 10 mg daily. 3. Metoprolol succinate 50 mg daily. 4. Omeprazole 20 mg daily. 5. Aspirin 80 mg daily. 6. Plavix 75 mg daily. Please note that aspirin and Plavix are supposed to be continued for 21 days total and then the patient is to continue on aspirin only. 7. Melatonin 3 mg at bedtime for sleep. 8. Toprol-XL dose was lowered from 50 to 25 mg daily. 9. Ultram 50 mg every 12 hours p.r.n. 10. Ure-Na 15 g p.o. b.i.d.. The patient is taking it for her SIADH. CONSULTATIONS DURING THE HOSPITAL STAY: Included: 1. Dr. Doss from Neurology. 2. Dr. Blood from Oncology. 3. Dr. Lopez and Dr. Escobar from Nephrology. 4. Dr. Glover, Palliative Care. LABORATORY DATA AND STUDIES PERFORMED DURING THE HOSPITAL STAY: Included: On , white blood cell count of 9.0, hemoglobin 9.4, hematocrit 27, platelets of 162. Sodium 133, potassium of 4.2, chloride 101, carbon dioxide 28, BUN 71, creatinine 1.29. Urine osmolality obtained 04/26/19 was 427. Urine sodium was 34 documented on 04/26/19. Immunology testing showed kappa light chain of 0.991, lambda light chain of 1.92 , kappa to lambda ratio of 0.51. Proteinase 3 of below 0.2 and myeloperoxidase antibody of below 0.2. The patient had 1 transfusion during the hospital stay on 04/30/19 of 1 packed red blood cells. Transesophageal echocardiogram obtained on 04/25/19 showed systolic function normal with EF of 55% to 60% with no regional wall motion abnormalities. There was mild Rouleaux formation noted in the left atrium with no evidence of thrombus. Atrial septum with bubble study negative. Mitral valve with mild to moderate regurgitation. Aortic valve cusp separation moderately reduced with findings consistent with mild stenosis with trace regurgitation. There were trace tricuspid regurgitation. No cardioembolic source identified. Brain MRI was obtained prior to the hospital stay and was quoted above. HOSPITALIZATION COURSE: Jackie Freedman is a 78-year-old female who was visiting the area to be with her daughters. The patient is originally from [place] and her daughters both of them live in the [facility]. The patient was noted to have intermittently slurred speech and she had an outpatient MRI performed which showed multiple small punctate strokes. Due to that, the patient was directed to the ED for admission. Here, she was evaluated by our neurologist, Dr. Doss, who noted the patient should be on dual antiplatelet therapy for 21 days and then switch to aspirin only. Dr. Doss also noted that it is possible that the patient's strokes were due to cardioembolic source, although none was identified on EDEL or on telemetry monitoring with any arrhythmia. There is also possibility that the patient developed thrombotic microangiopathy , which had been reported with Velcade, which was the medication that the patient received a week or so prior to the onset of the neurological symptoms. At that point, Dr. Doss could not rule in or rule out either cardioembolic source or microangiopathy related to the patient's treatment of multiple myeloma and recommended dual antiplatelet therapy. The patient was noted to have hyponatremia, initially was delirious likely due to hyponatremia. Dr. Escobar and Dr. Lopez were consulted on the case and noted that the patient likely as SIADH pattern of hyponatremia and started the patient on urea supplementation with good results and almost normalization of the patient's sodium, which was 133 the day prior to discharge. Therefore, the patient is recommended to continue this medication, although it is over the counter and is not able to be prescribed. In regards to the patient's multiple myeloma, the patient was followed by Dr. Blood's service during the hospital stay. The patient's serum protein electrophoresis is still pending and it was noted that the patient's lambda light chains were within acceptable range. It was noted that the patient is anemic and transfusion was recommended and performed on 04/30/19 with good results. It was recommended for the oncology group to follow along. The patient is planning to move to [facility] closer to the family, and at that point, she will likely follow up with our oncologist. Please note that all the patient's change of mental status and neurologic symptoms almost resolved by the time of discharge. She was markedly deconditioned and had generalized weakness. She was evaluated by our physical therapy unit and deemed to be a good candidate for physiotherapy there. She plans to be admitted there on 05/02/19 for further physical therapy. PHYSICAL EXAMINATION: Vital Signs: Blood pressure 112/50, heart rate of 81 and regular, respiratory rate 16, oxygen saturation 98% on room air, temperature 97.7. General: The patient is a pleasant 78-year-old female who is rather a poor historian and slightly hard of hearing, but in no acute distress. Alert and oriented x3. HEENT: Head is atraumatic, normocephalic. Eyes: Pupils equal and reactive to light and accommodation. Oropharynx clear. Mucosa moist. Neck: Supple. No JVD. No bruits bilaterally. Cardiovascular: Regular rate and rhythm with 2/6 systolic ejection murmur noted on auscultation of right upper sternal border radiating to bilateral carotids. Respiratory: Clear to auscultation bilaterally. Abdomen: Soft, nontender. Bowel sounds present in all 4 quadrants. Extremities: There is no edema. Pulses +2 bilaterally. No clubbing or cyanosis. Neuro Evaluation: Speech clear. Cranial nerves II through XII grossly intact. Motor strength is 5/5 bilaterally. Please note this is a short summary of the patient's hospitalization. Please refer to further medical records for details. TIME SPENT: Approximately 45 minutes was spent on the patient's discharge. [id number]/[facility] #: [id number] VENKAT
[2019-05-02] MEDS: URE NA PO SCH (09:45)
[2019-05-02] MEDS: Metoprolol Succinate XL TAB* 25 MG PO SCH (09:46)
[2019-05-02] MEDS: traMADol TAB* 50 MG PO PRN (09:46)
[2019-05-02] MEDS: Aspirin 81 mg CHEW TAB* 81 MG TAB.CHEW PO SCH (09:46)
[2019-05-02] MEDS: Atorvastatin* 10 MG TAB PO SCH (09:46)
[2019-05-02] MEDS: Pantoprazole TAB * 40 MG TAB PO SCH (09:46)
[2019-05-02] MEDS: Clopidogrel TAB* 75 MG PO SCH (09:46)
[2019-05-02 09:51] VITALS: BP 104/41
== END 2019-05-02 10:52 | DRG 65 ==
LOC: ED 11:14 → MERGE 11:14 → MEDTELE 14:41
PROVIDERS: ADMIT Internal Medicine; ATTEND Internal Medicine
PROC: B24BZZ4 Ultrasonography of Heart with Aorta, Transesophageal (ICD-10-PCS; principal; 2019-04-25 11:00)
PROC: 30233N1 Transfusion of Nonautologous Red Blood Cells into Peripheral Vein, Percutaneous Approach (ICD-10-PCS; 2019-04-30)
DX: I63.9 Cerebral infarction, unspecified (principal); C90.00 Multiple myeloma not having achieved remission; R44.3 Hallucinations, unspecified; N17.9 Acute kidney failure, unspecified; E22.2 Syndrome of inappropriate secretion of antidiuretic hormone; I12.9 Hypertensive chronic kidney disease with stage 1 through stage 4 chronic kidney disease, or unspecified chronic kidney disease; N18.3 Chronic kidney disease, stage 3 (moderate); Z96.653 Presence of artificial knee joint, bilateral; R29.701 NIHSS score 1; R47.81 Slurred speech; E78.5 Hyperlipidemia, unspecified; I08.3 Combined rheumatic disorders of mitral, aortic and tricuspid valves; D69.6 Thrombocytopenia, unspecified; D63.1 Anemia in chronic kidney disease; I95.9 Hypotension, unspecified; Z66 Do not resuscitate; R53.1 Weakness; M54.5 Low back pain; G89.29 Other chronic pain; Z97.4 Presence of external hearing-aid; Z88.2 Allergy status to sulfonamides; Z28.21 Immunization not carried out because of patient refusal; Z79.82 Long term (current) use of aspirin; Z79.02 Long term (current) use of antithrombotics/antiplatelets; Z79.899 Other long term (current) drug therapy
CPT/HCPCS: 36415; 80048; 80053; 80061; 82272; 83516; 83735; 83883; 83930; 83935; 84155; 84165; 84300; 85014; 85018; 85025; 85610; 85652; 86140; 86850; 86900; 86901; 86922; 93005; 93312; 93325; 99156; 99223; 99233; 99284; A9270-GY; J2250; J2310; J3010; P9040

== ENCOUNTER 2019-05-02 08:53 | Inpatient (IN) | payer MEDICARE ==
[2019-05-02] MEDS ORDERED: Senna TAB 8.6 mg* TAB PO PRN (13:23)
[2019-05-02] MEDS ORDERED: Acetaminophen TAB* 325 MG PO PRN (13:23)
[2019-05-02] MEDS ORDERED: Polyethylene Glycol 3350* 17 GM PACKET PO PRN (15:24)
[2019-05-02] MEDS: Docusate CAP* 100 MG PO SCH (19:11)
[2019-05-02] MEDS: traMADol TAB* 50 MG PO PRN (19:51)
--- NOTE | 2019-05-02 19:58 | HP ---
HISTORY AND PHYSICAL: DATE OF ADMISSION: 05/02/19 REASON FOR ADMISSION: Multiple strokes with multiple myeloma. HISTORY OF PRESENT ILLNESS: Zina Freedman is a 78-year-old female. She was diagnosed with multiple myeloma in December of 2018. She has been undergoing treatment in [place] including Velcade. She was between treatments and came to [place] to visit her daughters. She normally lives in [place] in the [place] area. She was having difficulty with her speech being slurred and she seemed to be weaker than she normally was. The patient was having difficulty and had fallen in her daughter's bathroom on 04/23/19. She called her bomb squad commander/oncologist, who ordered an MRI of the brain, which was done at [facility] on 04/23/19. It showed bilateral supratentorial and infratentorial CVAs. She came to the ER on 04/24/19 and was admitted. She had a consult done with Dr. Eber Doss, the neurologist. He recommended treating her with dual antiplatelet therapy including aspirin and Plavix. She was noted to have thrombocytopenia with a platelet count at 76,000, but was put on dual antiplatelet treatment. She was initially confused and hallucinating after admission. Because of the embolic like appearance of the infarct, she did have an echocardiogram, which was negative for an embolic source. She developed hyponatremia, which was treated with both fluid restriction and later Ure-Na. The patient seemed to have physical therapy, occupational therapy, and speech therapy needs. She is now being admitted for inpatient rehab so that she might return to independent living. PAST MEDICAL HISTORY: Significant for the aforementioned multiple myeloma. She has a history of hypertension, chronic kidney disease, and aortic stenosis. CURRENT MEDICATIONS: Include: 1. Plavix. 2. Aspirin. 3. Lipitor. 4. Toprol-XL. 5. Protonix. 6. Tramadol. 7. Ure-Na. 8. MiraLAX. ALLERGIES: The patient has SULFA listed as a drug allergy. FAMILY HISTORY: Noncontributory. SOCIAL HISTORY: She lives by herself in a 2-story house in [place], [place], but stays on 1 level. She has 2 daughters, who live in the [place] area. There is some consideration being given to moving the patient to the [facility]. She is a nonsmoker, nondrinker. REVIEW OF SYSTEMS: The patient reports no current shortness of breath or chest pain. PHYSICAL EXAMINATION VITAL SIGNS: The patient's temperature is 98.3, blood pressure is 110/48, pulse 85, respirations are 18. HEENT: Her extraocular movements are intact. Tongue is midline. NECK: Supple. LUNGS: Lung sounds clear to auscultation bilaterally. HEART: Heart sounds were regular. There was a grade 2/6 systolic murmur. ABDOMEN: Soft and nontender. EXTREMITIES: Showed normal muscle tone in all 4 extremities. NEUROLOGIC: She was awake, alert, slightly hard of hearing. Muscle strength was about 5/5 in both upper and lower extremities. FUNCTIONAL EXAM: She transfers with supervision. ASSESSMENT: Multiple cerebrovascular accidents in the setting of multiple myeloma after Velcade treatment. PLAN: Integrate her into a comprehensive and therapeutic rehab program with the following goals: 1. Physical Therapy will work with the patient. They are going to work on functional transfer training, ambulation training with a walker. 2. Occupational Therapy will see the patient, work on her activities of daily living including toileting and toilet transfers. 3. Heparin for DVT prophylaxis. 4. Speech Therapy will see the patient to eval and treat her cognitive dysfunction. 5. Further Velcade treatment per Hematology/Oncology. 6. Continue dual antiplatelet treatment for secondary stroke prevention for 21 days, then aspirin alone. 7. Continue Toprol and Lipitor for coronary artery disease. 8. Monitor platelet count. 9. coordinator cardiopulmonary services will be closely involved to make sure that any services and equipment the patient requires are in place prior to discharge. 10. Family training as appropriate. 11. Home with appropriate services. ESTIMATED LENGTH OF STAY: 7 days. [id number]/[facility] #: [id number] VENKAT
[2019-05-02] MEDS: Heparin VIAL(*) 5000 UNITS/ML VIAL (FIVE THOUSAND) SUBCUT SCH (20:05)
[2019-05-03] MEDS: URE NA PO SCH (09:50)
[2019-05-03] MEDS: Clopidogrel TAB* 75 MG PO SCH (09:53)
[2019-05-03] MEDS: Aspirin EC TAB* 81 MG TAB.EC PO SCH (09:53)
[2019-05-03] MEDS: Heparin VIAL(*) 5000 UNITS/ML VIAL (FIVE THOUSAND) SUBCUT SCH ×2 (09:53→19:52)
[2019-05-03] MEDS: Pantoprazole TAB * 40 MG TAB PO SCH (09:54)
[2019-05-03] MEDS: Metoprolol Succinate XL TAB* 25 MG PO SCH (09:54)
[2019-05-03] MEDS: traMADol TAB* 50 MG PO PRN ×2 (09:54→19:51)
[2019-05-03] MEDS: Docusate CAP* 100 MG PO SCH ×2 (09:57→19:11)
[2019-05-03] MEDS: Atorvastatin* 10 MG TAB PO SCH (17:19)
--- NOTE | 2019-05-03 21:16 | PN ---
Progress Note Date of Service: 05/03/19 Note: A KAREEM VAZQUEZ was visited. Therapy notes read and reviewed. She seems to be doing better functionally but ORTHOPHOTO TECH/DRAFTSMAN notes some cognitive deficits. Otherwise has no complaints Current Medications: Active Medications Generic Name Dose Route Start Last Admin Trade Name Freq PRN Reason Stop Dose Admin Acetaminophen 650 mg 05/02/19 13:23 Tylenol Tab* PO Q6H PRN MILD PAIN or TEMP > 100.4 Aspirin 81 mg 05/03/19 09:00 05/03/19 09:53 Aspirin Ec Tab* PO 81 mg DAILY ABEBE Administration Atorvastatin Calcium 10 mg 05/03/19 17:00 05/03/19 17:19 Lipitor* PO 10 mg 1700 ABEBE Administration Clopidogrel Bisulfate 75 mg 05/03/19 09:00 05/03/19 09:53 Plavix Tab* PO 75 mg DAILY ABEBE Administration Docusate Sodium 100 mg 05/02/19 21:00 05/03/19 19:11 Colace Cap* PO Not Given BID ABEBE Heparin Sodium (Porcine) 5,000 units 05/02/19 21:00 05/03/19 19:52 Heparin Vial(*) SUBCUT 5,000 units Q12HR ABEBE Administration Melatonin 3 mg 05/02/19 15:20 Melatonin PO BEDTIME PRN SLEEP Metoprolol Succinate 25 mg 05/03/19 09:00 05/03/19 09:54 Toprol Xl Tab* PO 25 mg DAILY ABEBE Administration Pantoprazole Sodium 40 mg 05/03/19 09:00 05/03/19 09:54 Protonix Tab* PO 40 mg DAILY ABEBE Administration Polyethylene Glycol/Electrolytes 17 gm 05/02/19 15:24 Miralax (17 Gm Dose Gabriel) PO DAILY PRN CONSTIPATION Senna 2 tab 05/02/19 13:23 Senokot 8.6 Mg Tab* PO BEDTIME PRN CONSTIPATION Tramadol HCl 50 mg 05/02/19 15:21 05/03/19 19:51 Ultram* PO 50 mg Q12H PRN Administration PAIN - MODERATE Urea 15 gm 05/03/19 09:00 05/03/19 09:50 Ure-Na (Nf) PO 15 gm DAILY ABEBE Administration Vital Signs: Vital Signs Temp Pulse Resp BP Pulse Ox 98.2 F 90 18 132/56 95 05/03/19 16:17 05/03/19 16:17 05/03/19 19:51 05/03/19 16:17 05/03/19 17:54 Exam: GENERAL: No distress LUNGS: Clear HEART: II/ CHRISTINE, reg rhythm ABDOMEN: Soft +BS EXTREMITIES: Normal tone NEUROLOGIC: Alert. Muscle strength close to 5/5, fatigues easily Assessment/Plan: 1. Multiple CVA: DAPT with ASA/Plavix for 12 more days, then ASA alone. PT/OT/ ORTHOPHOTO TECH/DRAFTSMAN 2. Multiple myeloma: Velcade/Dexamaethasone per oncology 3. Hyponatremia: On Ure-Na, check in am 4. Thrombocytopenia: Resolved on last CBC, check in am 5. DVT Prophylaxis: Heparin S/Q 6. Advance Directives: DNR, has MOLST 05/03/19 21:10 05/03/19 21:11
[2019-05-04 06:00] LABS: Albumin 3.2 g/dL (3.2-5.2); Albumin/Globulin Ratio 1.6 (1-3); BUN/Creatinine Ratio 41.5 (8-20); Calcium 8.8 mg/dL (8.6-10.3); EGFR Non-African American 42.1 (>60); Potassium 4.3 mmol/L (3.5-5.0); Total Bilirubin 0.6 mg/dL (0.2-1.0); Total Protein 5.2 g/dL (6.4-8.9)
[2019-05-04 08:05] LABS: ABS Basophils 0.1 10^3/ul (0-0.2); ABS Lymphocytes 0.6 10^3/ul (1.0-4.8); ABS Monocytes 0.9 10^3/ul (0-0.8); ABS Neutrophils 4.7 10^3/ul (1.5-7.7); Eosinophil % 0.6 %; Hematocrit 26 % (35-47); Lymphocyte % 9.9 %; Mean Corpuscular HGB Conc 34 g/dL (31-36); Mean Corpuscular Hemoglobin 33 pg (27-31); Mean Corpuscular Volume 95 fL (80-97); Mean Platelet Volume 8.3 fL (7.4-10.4); Nucleated Red Blood Cells % 0.1; Platelet Count 205 10^3/uL (150-450); Red Blood Count 2.75 10^6 /uL (3.70-4.87); Red Cell Distribution Width 17 % (10-15); White Blood Count 6.3 10^3/uL (3.5-10.8)
[2019-05-04] MEDS: Heparin VIAL(*) 5000 UNITS/ML VIAL (FIVE THOUSAND) SUBCUT SCH ×2 (09:26→20:07)
[2019-05-04] MEDS: Docusate CAP* 100 MG PO SCH ×2 (09:26→20:07)
[2019-05-04] MEDS: Aspirin EC TAB* 81 MG TAB.EC PO SCH (09:26)
[2019-05-04] MEDS: Pantoprazole TAB * 40 MG TAB PO SCH (09:26)
[2019-05-04] MEDS: Metoprolol Succinate XL TAB* 25 MG PO SCH (09:26)
[2019-05-04] MEDS: Clopidogrel TAB* 75 MG PO SCH (09:26)
[2019-05-04] MEDS: URE NA PO SCH (09:36)
--- NOTE | 2019-05-04 11:06 | PN ---
Progress Note Date of Service: 05/04/19 Note: A KAREEM VAZQUEZ was visited. Nursing and therapy notes read and reviewed. No shortness of breath or abdominal pain. She feels like she has strained some chest wall and back muscles using the walker in therapy. Current Medications: Active Medications Generic Name Dose Route Start Last Admin Trade Name Freq PRN Reason Stop Dose Admin Acetaminophen 650 mg 05/02/19 13:23 Tylenol Tab* PO Q6H PRN MILD PAIN or TEMP > 100.4 Aspirin 81 mg 05/03/19 09:00 05/04/19 09:26 Aspirin Ec Tab* PO 81 mg DAILY ABEBE Administration Atorvastatin Calcium 10 mg 05/03/19 17:00 05/03/19 17:19 Lipitor* PO 10 mg 1700 ABEBE Administration Clopidogrel Bisulfate 75 mg 05/03/19 09:00 05/04/19 09:26 Plavix Tab* PO 75 mg DAILY ABEBE Administration Docusate Sodium 100 mg 05/02/19 21:00 05/04/19 09:26 Colace Cap* PO 100 mg BID ABEBE Administration Heparin Sodium (Porcine) 5,000 units 05/02/19 21:00 05/04/19 09:26 Heparin Vial(*) SUBCUT 5,000 units Q12HR ABEBE Administration Melatonin 3 mg 05/02/19 15:20 Melatonin PO BEDTIME PRN SLEEP Metoprolol Succinate 25 mg 05/03/19 09:00 05/04/19 09:26 Toprol Xl Tab* PO 25 mg DAILY ABEBE Administration Pantoprazole Sodium 40 mg 05/03/19 09:00 05/04/19 09:26 Protonix Tab* PO 40 mg DAILY ABEBE Administration Polyethylene Glycol/Electrolytes 17 gm 05/02/19 15:24 Miralax (17 Gm Dose Gabriel) PO DAILY PRN CONSTIPATION Senna 2 tab 05/02/19 13:23 Senokot 8.6 Mg Tab* PO BEDTIME PRN CONSTIPATION Tramadol HCl 50 mg 05/02/19 15:21 05/03/19 19:51 Ultram* PO 50 mg Q12H PRN Administration PAIN - MODERATE Urea 15 gm 05/03/19 09:00 05/04/19 09:36 Ure-Na (Nf) PO 15 gm DAILY ABEBE Administration Vital Signs: Vital Signs Temp Pulse Resp BP Pulse Ox 98.1 F 84 12 112/55 95 05/04/19 06:25 05/04/19 06:25 05/04/19 07:19 05/04/19 06:25 05/04/19 07:19 Lab Results: Laboratory Results - last 24 hr 05/04/19 05/04/19 03:36 03:36 WBC 6.3 RBC 2.75 L Hgb 9.0 L Hct 26 L MCV 95 MCH 33 H MCHC 34 RDW 17 H Plt Count 205 MPV 8.3 Neut % (Auto) 74.5 Lymph % (Auto) 9.9 [place] % (Auto) 14.2 Eos % (Auto) 0.6 Baso % (Auto) 0.8 Absolute Neuts (auto) 4.7 Absolute Lymphs (auto) 0.6 L Absolute Monos (auto) 0.9 H Absolute Eos (auto) 0.0 Absolute Basos (auto) 0.1 Absolute Nucleated RBC 0.0 Nucleated RBC % 0.1 Sodium 135 Potassium 4.3 Chloride 100 L Carbon Dioxide 30 Anion Gap 5 BUN 51 H Creatinine 1.23 H Est GFR ( Amer) 51.0 Est GFR (Non-Af Amer) 42.1 BUN/Creatinine Ratio 41.5 H Glucose 84 Calcium 8.8 Total Bilirubin 0.60 AST 37 ALT 86 H Alkaline Phosphatase 204 H Total Protein 5.2 L Albumin 3.2 Globulin 2.0 Albumin/Globulin Ratio 1.6 Exam: GENERAL: No acute distress. Alert and appropriate. LUNGS: Clear to auscultation bilaterally. HEART: II/ CHRISTINE, regular rate and rhythm ABDOMEN: + bowel sounds, soft, non-tender, non-distended EXTREMITIES: No edema. NEUROLOGIC: CN II-XII intact. Motor 5/5 BUE and BLE with normal sensation Assessment/Plan: 1. Multiple CVA: DAPT with ASA/Plavix for 11 more days, then ASA alone. PT/OT/ CERTIFIED ADDICTION COUNSELOR 2. Multiple myeloma: Velcade/Dexamaethasone per oncology 3. Hyponatremia: On Ure-Na. Na stable. 4. Thrombocytopenia: Resolved. 5. DVT Prophylaxis: Heparin S/Q 6. Advance Directives: DNR, has MOLST 7. Mild transaminitis with elevated ALT: recheck next week. 05/04/19 11:16
--- NOTE | 2019-05-04 12:43 | PMRUTEAM ---
PMRU: Team Meeting Current Status: Physical Therapy: Current Status Current Rolling Status Supervision/Touching Current Supine <-> Sit Status Supervision/Touching Current Sit <-> Stand Status Supervision/Touching Current Bed <-> Chair Status Supervision/Touching Transfer/Bed Mobility Rolling Walker Recommended Devices Current Picking Up Object Not attempted Status Current Car Transfer Status Not attempted Current Ambulation Assistance supervision Status Ambulation Assistive Device Rolling Walker Ambulation Conditions Two or More Turns Current Ambulation Distance 150' x2 Current Wheelchair Propulsion Not Applicable Ability Status Current Stair Climbing Status Supervision/Touching Stair Climbing Assistive Left Railing,Right Railing Devices Number of Stairs Climbed 2x2 Current Curb Assistance Status Supervision/Touching Curb Assistive Devices Rolling Walker Occupational Therapy: Current Status Current Upper Body Dressing supervision/touching Status Current Lower Body Dressing supervision/touching Status Current Footwear Status Partial/Moderate Current Bathing Status Patient Refused Current Grooming Status Setup or Clean-up Assist Current Toileting Status Supervision/Touching Current Toilet Transfer Status Supervision/Touching Current Eating Status Independent Speech Current status: word finding difficulties with anomia and moderate cognitive impairment. Rec Therapy: Current Status Summary of Assessment and Pt was open to meet with staff to discuss leisure Clinical Impression interests and involvement. Pt was pleasant and cooperative in answering questions, with assistance from her daughter. Pt had some confusion/misunderstanding during conversation due to not having her hearing aids, as they were being repaired. Pt's daughter brought her Ipad and other independent leisure materials for pt to use . Treatment Goals Pt will engage in leisure activities while on the unit as tolerated. Treatment Plan Provide recreation therapy services and encourage involvement. Social Work: Current Status Discharge Plan return to her daughter's home with home care svs and family support Potential for Family Training Her daughterLaly's healthcare facility administrator Anticipated Discharge Home Destination Discharge With home care svs and family support Goals: Physical Therapy: Goals Goals to Be Accomplished in ( 5 Days) Goal: Rolling Assistance Independent Goal Supine <-> Sit Status Independent Goal Sit <-> Stand Status Independent Goal Bed <-> Chair Status Independent Transfer/Bed Mobility Rolling Walker Recommended Devices Goal: Picking Up Object Independent Goal: Car Transfer Status Setup or Clean-up Assist Goal: Ambulation Assistance Independent Ambulation Assistive Devices Rolling Walker Ambulation Distance (ft) 300 Goal: Stairs Assistance Independent Stairs Recommended Devices One Rail Number of Stairs 10 Goal: Curb Assistance Independent Occupational Therapy: Goals Goals to be Completed in (Days 3-7 ) Goal Upper Body Dressing Independent Routine Goal Lower Body Dressing Independent Routine Goal Footwear Status Independent Goal Bathing Routine (OT) Independent Goal Grooming Routine Independent Goal Toilet Hygiene and Independent Clothing Management Routine Goal Toilet Transfer Routine Independent Goal Functional Transfers for Independent ADL Goal Feeding Routine Independent Light Housekeeping Tasks light meal prep Joel Assistive Devices Nutrition: Goals Intervention Goals 1. adequate intake to support stable wt, hydration, and lean body mass without at loss 2. maintain serum electrolytes WNL 3. maintain regulated bowel pattern; no c/o constipation (or diarrhea) Speech: Goals Speech Goal 1 Language Expression Goal 1 Comments Language Expression Goal, Long-Term: Pt will use conversational repair strategies to cooperatively find words in structured conversation, 80% accuracy, given extra time and Moderate cueing, . Status: Goal established Language Expression Goal, Short-Term: Pt will use conversational repair strategies to cooperatively find words in structured language activities, 75% accuracy, given skilled instruction, Maximal cueing, and extra time. Status: Goal established Speech Goal 2 Memory Speech Goal 2 Comments Memory Goal, Long-Term: Pt will use compensatory strategies to encode and retrieve 4/4 new items after delay of 8 minutes, given moderate cueing, for independence in mobility safety, ADLs and community access. Status: Goal established Memory Goal, Short-term: Pt will use compensatory strategies to encode and retrieve 3/4 new items after delay of 4 minutes, given skilled instruction, Maximal cueing, and extra time. Status: Goal established. Social Work: Goals Discharge Plan return to her daughter's home with home care svs and family support Potential for Family Training Her daughterLaly's healthcare facility administrator Anticipated Discharge Home Destination Discharge With home care svs and family support Care Plan: Care Plan ADL's - Improve/Maintain Start: 05/02/19 13:49 Freq: DAILY@0700,1900 Status: Active Target: 05/03/19 Protocol: Activity Type Activity Date Activity User E-Sign Co-Sign Detail Recorded Client Recorded Date Recorded By Document 05/03/19 12:45 [id number] 05/03/19 12:45 [id number] 05/03/19 12:45 PMRU Outcome: ADL's/ADL Transfers Orders/Interventions Occupational Therapy Evaluation & Treatment Communication Tool in Patient Room Device Yes Address Deficits Secondary To: CVA Patient to receive OT 5x/wk for 60-120 Therex min/day Self Care Management Group Therapy Neuromuscular ReEducation UE/LE ADL's with Assist Yes: Joel ADL Transfers with Assist Yes: Joel Toileting: Transfers,Clothing Management Yes: Joel ,Hygeine w/Assist Light Kitchen/Laundry w/Assist Yes: light meal prep Joel Other Outcome/Goals Pt tolerates OT tx session well this date. She demonstrates increased activity tolerance and no LOB throughout session. Progression Toward Outcome/Goals Progressing Cardiovascular- Improve/Maintain Start: 05/03/19 01:20 Freq: DAILY@0700,1900 Status: Active Target: 05/09/19 Protocol: Activity Type Activity Date Activity User E-Sign Co-Sign Detail Recorded Client Recorded Date Recorded By Document 05/04/19 07:00 [id number] 05/04/19 07:19 [id number] 05/04/19 07:00 PMRU Outcome: Cardiovascular Vital Signs q Shift for 48hrs Then BID Yes Daily Weight Ordered No Current Cardiovascular Outcome/Goal Maintain/ Achieve Baseline HR, BP , Perfusion Maintain/ Achieve Hemodynamic Stability Progression Toward Outcome/Goal Progressing Discharge Planning Start: 05/02/19 11:52 Freq: DAILY@00,1899 Status: Active Target: 05/09/19 Protocol: Activity Type Activity Date Activity User E-Sign Co-Sign Detail Recorded Client Recorded Date Recorded By Document 05/04/19 07:00 [id number] 05/04/19 07:19 [id number] 05/04/19 07:00 Outcome: Discharge Planning Current Discharge Planning Outcome/Goals Other Other Discharge Planning Outcome/Goals daughters involved Progression Toward Outcome/Goals Progressing Education-Improve/Maintain Start: 05/02/19 11:52 Freq: DAILY@00,1900 Status: Complete Target: 05/09/19 Protocol: Activity Type Activity Date Activity User E-Sign Co-Sign Detail Recorded Client Recorded Date Recorded By Document 05/03/19 01:20 [id number] 05/03/19 01:21 [id number] 05/03/19 01:20 Outcome: Education Current Education Outcome/Goals Demonstrates Understanding of Plan of Care to their Capacity Demonstrates Skills Required to Manage Self Care to Their Ability Understands Their Diagnosis and How to Prevent Complications Understands Medications and /or Treatments to the Best of Their Ablilty Progression Toward Outcome/Goals Progressing Outcome/Goals Met Demonstrates Understanding of Plan of Care to their Capacity Demonstrates Skills Required to Manage Self Care to Their Ability Understands Their Diagnosis and How to Prevent Complications Understands Medications and /or Treatments to the Best of Their Ablilty Education-Improve/Maintain Start: 05/03/19 01:20 Freq: DAILY@0700,1900 Status: Active Target: 05/09/19 Protocol: Activity Type Activity Date Activity User E-Sign Co-Sign Detail Recorded Client Recorded Date Recorded By Document 05/04/19 07:00 [id number] 05/04/19 07:19 [id number] 05/04/19 07:00 PMRU Outcome: Education Current Education Outcome/Goals Demonstrate/ Verbalize Understanding of Written Discharge Instructions Demonstrates Skills Encourage Questions Progression Toward Outcome/Goals Progressing Gastrointestinal-Improve/Maintain Start: 05/02/19 11:52 Freq: DAILY@0700,1900 Status: Active Target: 05/09/19 Protocol: Activity Type Activity Date Activity User E-Sign Co-Sign Detail Recorded Client Recorded Date Recorded By Document 05/04/19 07:00 [id number] 05/04/19 07:19 [id number] 05/04/19 07:00 Outcome: Gastrointestinal Current GI Outcome/Goals Maintain/ Achieve Bowel Regularity in Accordance with Pt's Baseline Progression Toward Outcome/Goals Progressing Medication Administration Start: 05/03/19 01:20 Freq: DAILY@0700,1900 Status: Active Target: 05/09/19 Protocol: Activity Type Activity Date Activity User E-Sign Co-Sign Detail Recorded Client Recorded Date Recorded By Document 05/04/19 07:00 [id number] 05/04/19 07:19 [id number] 05/04/19 07:00 PMRU Outcome: Medication Administration Assess Patient Knowledge/Teach Med Yes Education for all Meds Current Pulling Unit Floorhand Outcome/Goals Patient Independent with Medication Administration at Home Progression Towards Outcome/Goals Progressing Is Patient Going Home on Lovenox? No Mobility- Improve/Maintain Start: 05/02/19 16:39 Freq: DAILY@0700,1900 Status: Active Target: 05/03/19 Protocol: Activity Type Activity Date Activity User E-Sign Co-Sign Detail Recorded Client Recorded Date Recorded By Document 05/04/19 11:35 [id number] 05/04/19 11:36 [id number] 05/04/19 11:35 PMRU Outcome: Mobility Physical Therapy Evaluation and Yes Treatment Activity OOB with Assistance Yes WBAT Yes Device Yes Assistance Yes Patient to be seen 5x/wk for 60-120 min/ Therex day for: Mobility Training Gait Training Balance Current Mobility Outcome/Goals Maintain/ Achieve Baseline Mobility Status Improve Mobility Status Demonstrates Proper Use of Assistive Devices Free from Complications of Immobility Progression Toward Outcome/Goals Progressing Bed Mobility Yes: independent Transfers Yes: independent with rolling walker Gait x ft Yes: independent with rolling walker Up/Down Stairs Yes: independet up/down 12 stairs with 1 rail Neurological- Improve/Maintain Start: 05/03/19 01:20 Freq: DAILY@699,1899 Status: Active Target: 05/09/19 Protocol: Activity Type Activity Date Activity User E-Sign Co-Sign Detail Recorded Client Recorded Date Recorded By Document 05/04/19 07:00 [id number] 05/04/19 07:19 [id number] 05/04/19 07:00 PMRU Outcome: Neurological Weakness/Aphasia Weakness Current Neurological Outcome/Goals Maintain/ Achieve Baseline Neurological Status Maintain/ Improve Strength/ROM Progression Toward Outcome/Goals Progressing Rec Therapy- Improve/Maintain Start: 05/02/19 16:23 Freq: DAILY@699,1899 Status: Active Target: 05/08/19 Protocol: Activity Type Activity Date Activity User E-Sign Co-Sign Detail Recorded Client Recorded Date Recorded By Document 05/02/19 16:24 [id number] 05/02/19 16:24 [id number] 05/02/19 16:24 PMRU Outcome: Recreation Therapy Current Rec Ther Outcome/Goals Complete Rec Therapy Assessment Meet with Patient Regularly for Support Encourage Leisure Involvement Progression Toward Outcome/Goals Goal Initiation Safety- Improve/Maintain Start: 05/02/19 11:21 Freq: DAILY@699,1899 Status: Active Target: 05/09/19 Protocol: Activity Type Activity Date Activity User E-Sign Co-Sign Detail Recorded Client Recorded Date Recorded By Document 05/04/19 07:00 [id number] 05/04/19 07:19 [id number] 02/07/20 07:00 PMRU Outcome: Safety Current Safety Outcome/Goals Remain Free of Injury or Harm Cooperates with Safety Measures for Least Restrictive Environment Progression Toward Outcome/Goals Progressing - Interdisciplinary Staff Present Security Incident Handler/Social Work Staff Present: VALENTIN Menezes Nursing Staff Present: Doe Poe OT Staff Present: Sara Hall PT Staff Present: Quoc Titus CAR PUSHER Staff Present: Chriss aCbrera Medicine Note: Length of Stay: [3 more days] Anticipated Discharge Destination: Home Tentative Discharge Date: [05/08/2019] Discharged to: [[facility] home]
[2019-05-04] MEDS: Atorvastatin* 10 MG TAB PO SCH (16:58)
[2019-05-04] MEDS: traMADol TAB* 50 MG PO PRN (20:06)
[2019-05-05] MEDS: Clopidogrel TAB* 75 MG PO SCH (08:56)
[2019-05-05] MEDS: Aspirin EC TAB* 81 MG TAB.EC PO SCH (08:56)
[2019-05-05] MEDS: Pantoprazole TAB * 40 MG TAB PO SCH (08:56)
[2019-05-05] MEDS: Heparin VIAL(*) 5000 UNITS/ML VIAL (FIVE THOUSAND) SUBCUT SCH ×2 (08:57→20:23)
[2019-05-05] MEDS: Docusate CAP* 100 MG PO SCH ×2 (08:57→20:23)
[2019-05-05] MEDS: Metoprolol Succinate XL TAB* 25 MG PO SCH (08:57)
[2019-05-05] MEDS: URE NA PO SCH (08:58)
--- NOTE | 2019-05-05 10:24 | PN ---
Progress Note Date of Service: 05/05/19 Note: A KAREEM VAZQUEZ was visited. Nursing and therapy notes read and reviewed. No chest pain, shortness of breath or abdominal pain. Looking forward to a shower today. Current Medications: Active Medications Generic Name Dose Route Start Last Admin Trade Name Freq PRN Reason Stop Dose Admin Acetaminophen 650 mg 05/02/19 13:23 Tylenol Tab* PO Q6H PRN MILD PAIN or TEMP > 100.4 Aspirin 81 mg 05/03/19 09:00 05/05/19 08:56 Aspirin Ec Tab* PO 81 mg DAILY ABEBE Administration Atorvastatin Calcium 10 mg 05/03/19 17:00 05/04/19 16:58 Lipitor* PO 10 mg 1700 ABEBE Administration Clopidogrel Bisulfate 75 mg 05/03/19 09:00 05/05/19 08:56 Plavix Tab* PO 75 mg DAILY ABEBE Administration Docusate Sodium 100 mg 05/02/19 21:00 05/05/19 08:57 Colace Cap* PO 100 mg BID ABEBE Administration Heparin Sodium (Porcine) 5,000 units 05/02/19 21:00 05/05/19 08:57 Heparin Vial(*) SUBCUT 5,000 units Q12HR ABEBE Administration Melatonin 3 mg 05/02/19 15:20 Melatonin PO BEDTIME PRN SLEEP Metoprolol Succinate 25 mg 05/03/19 09:00 05/05/19 08:57 Toprol Xl Tab* PO 25 mg DAILY ABEBE Administration Pantoprazole Sodium 40 mg 05/03/19 09:00 05/05/19 08:56 Protonix Tab* PO 40 mg DAILY ABEBE Administration Polyethylene Glycol/Electrolytes 17 gm 05/02/19 15:24 Miralax (17 Gm Dose Gabriel) PO DAILY PRN CONSTIPATION Senna 2 tab 05/02/19 13:23 Senokot 8.6 Mg Tab* PO BEDTIME PRN CONSTIPATION Tramadol HCl 50 mg 05/02/19 15:21 05/04/19 20:06 Ultram* PO 50 mg Q12H PRN Administration PAIN - MODERATE Urea 15 gm 05/03/19 09:00 05/05/19 08:58 Ure-Na (Nf) PO 15 gm DAILY ABEBE Administration Vital Signs: Vital Signs Temp Pulse Resp BP Pulse Ox 98.4 F 87 12 119/44 95 05/05/19 05:43 05/05/19 05:43 05/05/19 07:24 05/05/19 05:43 05/05/19 07:24 Exam: GENERAL: No acute distress. Alert and appropriate. LUNGS: Clear to auscultation bilaterally. HEART: II/ CHRISTINE, regular rate and rhythm ABDOMEN: + bowel sounds, soft, non-tender, non-distended EXTREMITIES: No edema. NEUROLOGIC: CN II-XII intact. Motor 5/5 BUE and BLE with normal sensation Assessment/Plan: 1. Multiple CVA: DAPT with ASA/Plavix for 11 more days, then ASA alone. 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 Multiple myeloma: Velcade/Dexamaethasone per oncology 3. Hyponatremia: On Ure-Na. Na stable. Will ask nephrology if need to continue 4. Thrombocytopenia: Resolved. 5. DVT Prophylaxis: Heparin S/Q 6. Advance Directives: DNR, has MOLST 7. Mild transaminitis with elevated ALT: recheck next week. 05/05/19 10:22
[2019-05-05] MEDS: Atorvastatin* 10 MG TAB PO SCH (17:27)
[2019-05-05] MEDS: traMADol TAB* 50 MG PO PRN (20:22)
[2019-05-05] MEDS: Melatonin 3 MG TAB PO PRN (20:23)
[2019-05-06] MEDS: Pantoprazole TAB * 40 MG TAB PO SCH (09:08)
[2019-05-06] MEDS: Docusate CAP* 100 MG PO SCH ×2 (09:08→20:06)
[2019-05-06] MEDS: Metoprolol Succinate XL TAB* 25 MG PO SCH (09:08)
[2019-05-06] MEDS: Aspirin EC TAB* 81 MG TAB.EC PO SCH (09:08)
[2019-05-06] MEDS: Clopidogrel TAB* 75 MG PO SCH (09:09)
[2019-05-06] MEDS: Heparin VIAL(*) 5000 UNITS/ML VIAL (FIVE THOUSAND) SUBCUT SCH ×2 (09:10→20:06)
--- NOTE | 2019-05-06 10:07 | PN ---
Progress Note Date of Service: 05/06/19 Note: A KAREEM VAZQUEZ was visited. Nursing notes read and reviewed. No chest pain, shortness of breath or abdominal pain. She has some low back pain treated with warm packs. Current Medications: Active Medications Generic Name Dose Route Start Last Admin Trade Name Freq PRN Reason Stop Dose Admin Acetaminophen 650 mg 05/02/19 13:23 05/06/19 07:40 Tylenol Tab* PO 650 mg Q6H PRN Administration MILD PAIN or TEMP > 100.4 Aspirin 81 mg 05/03/19 09:00 05/06/19 09:08 Aspirin Ec Tab* PO 81 mg DAILY ABEBE Administration Atorvastatin Calcium 10 mg 05/03/19 17:00 05/05/19 17:27 Lipitor* PO 10 mg 1700 ABEBE Administration Clopidogrel Bisulfate 75 mg 05/03/19 09:00 05/06/19 09:09 Plavix Tab* PO 75 mg DAILY ABEBE Administration Docusate Sodium 100 mg 05/02/19 21:00 05/06/19 09:08 Colace Cap* PO 100 mg BID ABEBE Administration Heparin Sodium (Porcine) 5,000 units 05/02/19 21:00 05/06/19 09:10 Heparin Vial(*) SUBCUT 5,000 units Q12HR ABEBE Administration Melatonin 3 mg 05/02/19 15:20 05/05/19 20:23 Melatonin PO 3 mg BEDTIME PRN Administration SLEEP Metoprolol Succinate 25 mg 05/03/19 09:00 05/06/19 09:08 Toprol Xl Tab* PO 25 mg DAILY ABEBE Administration Pantoprazole Sodium 40 mg 05/03/19 09:00 05/06/19 09:08 Protonix Tab* PO 40 mg DAILY ABEBE Administration Polyethylene Glycol/Electrolytes 17 gm 05/02/19 15:24 Miralax (17 Gm Dose Gabriel) PO DAILY PRN CONSTIPATION Senna 2 tab 05/02/19 13:23 Senokot 8.6 Mg Tab* PO BEDTIME PRN CONSTIPATION Tramadol HCl 50 mg 05/02/19 15:21 05/05/19 20:22 Ultram* PO 50 mg Q12H PRN Administration PAIN - MODERATE Vital Signs: Vital Signs Temp Pulse Resp BP Pulse Ox 98.7 F 82 16 126/55 97 05/06/19 05:05 05/06/19 05:05 05/06/19 07:23 05/06/19 05:05 05/06/19 07:23 Exam: GENERAL: No acute distress. Alert and appropriate. LUNGS: Clear to auscultation bilaterally. HEART: II/ CHRISTINE, regular rate and rhythm ABDOMEN: + bowel sounds, soft, non-tender, non-distended EXTREMITIES: No edema. NEUROLOGIC: CN II-XII intact. Motor 5/5 BUE and BLE with normal sensation Assessment/Plan: 1. Multiple CVA: DAPT with ASA/Plavix for 9 more days, then ASA alone. 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 Multiple myeloma: Velcade/Dexamaethasone per oncology 3. Hyponatremia: resolved from 05/04 labs. I spoke to Dr. Escobar in nephrology regarding non-coverage of Ure-Na by patient's insurance and concern of high cost. She advised can d/c Ure-Na and continue on high protein diet with 1500ml fluid restriction. This was started yesterday. Labs ordered for tomorrow. 4. Thrombocytopenia: Resolved. 5. DVT Prophylaxis: Heparin S/Q 6. Advance Directives: DNR, has MOLST 7. Mild transaminitis with elevated ALT: recheck Tuesday 8. Estimated LOS: possible d/c on 05/08/19 05/06/19 10:04
[2019-05-06] MEDS: Atorvastatin* 10 MG TAB PO SCH (17:19)
[2019-05-06] MEDS: Melatonin 3 MG TAB PO PRN (20:06)
[2019-05-06] MEDS: traMADol TAB* 50 MG PO PRN (20:06)
[2019-05-07 06:09] LABS: Albumin 3.4 g/dL (3.2-5.2); Albumin/Globulin Ratio 1.5 (1-3); BUN/Creatinine Ratio 30.4 (8-20); Calcium 9.1 mg/dL (8.6-10.3); EGFR African American 55.1 (>60); EGFR Non-African American 45.5 (>60); Globulin 2.3 g/dL (2-4); Potassium 3.9 mmol/L (3.5-5.0); Total Bilirubin 0.5 mg/dL (0.2-1.0); Total Protein 5.7 g/dL (6.4-8.9)
[2019-05-07] MEDS: Docusate CAP* 100 MG PO SCH ×2 (09:33→20:57)
[2019-05-07] MEDS: Pantoprazole TAB * 40 MG TAB PO SCH (09:33)
[2019-05-07] MEDS: Heparin VIAL(*) 5000 UNITS/ML VIAL (FIVE THOUSAND) SUBCUT SCH ×2 (09:33→20:51)
[2019-05-07] MEDS: Metoprolol Succinate XL TAB* 25 MG PO SCH (09:33)
[2019-05-07] MEDS: Aspirin EC TAB* 81 MG TAB.EC PO SCH (09:33)
[2019-05-07] MEDS: Clopidogrel TAB* 75 MG PO SCH (09:33)
[2019-05-07] MEDS: traMADol TAB* 50 MG PO PRN ×2 (09:42→20:50)
[2019-05-07] MEDS: Atorvastatin* 10 MG TAB PO SCH (17:06)
--- NOTE | 2019-05-07 19:27 | PN ---
Progress Note Date of Service: 05/07/19 Note: A KAREEM VAZQUEZ was visited. Therapy notes read and reviewed. She is medically stable. Na+ now 141. She has no other complaints. Will go home tomorrow. Current Medications: Active Medications Generic Name Dose Route Start Last Admin Trade Name Freq PRN Reason Stop Dose Admin Acetaminophen 650 mg 05/02/19 13:23 05/06/19 07:40 Tylenol Tab* PO 650 mg Q6H PRN Administration MILD PAIN or TEMP > 100.4 Aspirin 81 mg 05/03/19 09:00 05/07/19 09:33 Aspirin Ec Tab* PO 81 mg DAILY ABEBE Administration Atorvastatin Calcium 10 mg 05/03/19 17:00 05/07/19 17:06 Lipitor* PO 10 mg 1700 ABEBE Administration Clopidogrel Bisulfate 75 mg 05/03/19 09:00 05/07/19 09:33 Plavix Tab* PO 75 mg DAILY ABEBE Administration Docusate Sodium 100 mg 05/02/19 21:00 05/07/19 09:33 Colace Cap* PO 100 mg BID ABEBE Administration Heparin Sodium (Porcine) 5,000 units 05/02/19 21:00 05/07/19 09:33 Heparin Vial(*) SUBCUT 5,000 units Q12HR ABEBE Administration Melatonin 3 mg 05/02/19 15:20 05/06/19 20:06 Melatonin PO 3 mg BEDTIME PRN Administration SLEEP Metoprolol Succinate 25 mg 05/03/19 09:00 05/07/19 09:33 Toprol Xl Tab* PO 25 mg DAILY ABEBE Administration Pantoprazole Sodium 40 mg 05/03/19 09:00 05/07/19 09:33 Protonix Tab* PO 40 mg DAILY ABEBE Administration Polyethylene Glycol/Electrolytes 17 gm 05/02/19 15:24 Miralax (17 Gm Dose Gabriel) PO DAILY PRN CONSTIPATION Senna 2 tab 05/02/19 13:23 Senokot 8.6 Mg Tab* PO BEDTIME PRN CONSTIPATION Tramadol HCl 50 mg 05/02/19 15:21 05/07/19 09:42 Ultram* PO 50 mg Q12H PRN Administration PAIN - MODERATE Vital Signs: Vital Signs Temp Pulse Resp BP Pulse Ox 98.3 F 91 18 126/53 95 05/07/19 16:59 05/07/19 16:59 05/07/19 16:59 05/07/19 16:59 05/07/19 16:59 Lab Results: Laboratory Results - last 24 hr 05/07/19 05:29 Sodium 141 Potassium 3.9 Chloride 105 Carbon Dioxide 31 Anion Gap 5 BUN 35 H Creatinine 1.15 H Est GFR ( Amer) 55.1 Est GFR (Non-Af Amer) 45.5 BUN/Creatinine Ratio 30.4 H Glucose 89 Calcium 9.1 Total Bilirubin 0.50 AST 27 ALT 60 H Alkaline Phosphatase 191 H Total Protein 5.7 L Albumin 3.4 Globulin 2.3 Albumin/Globulin Ratio 1.5 Exam: GENERAL: No acute distress. Alert and appropriate. LUNGS: Clear to auscultation bilaterally. HEART: II/ CHRISTINE, regular rate and rhythm ABDOMEN: + bowel sounds, soft, non-tender, non-distended EXTREMITIES: No edema. NEUROLOGIC: CN II-XII intact, except [place]. Motor 5/5 BUE and BLE with normal sensation Assessment/Plan: 1. Multiple CVA: DAPT with ASA/Plavix for 8 more days, then ASA alone. 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 Multiple myeloma: Velcade/Dexamaethasone per oncology 3. Hyponatremia: resolved; continue on high protein diet with 1500ml fluid restriction. May be able to loosen fluid restriction. 4. Thrombocytopenia: Resolved. 5. DVT Prophylaxis: Heparin S/Q 6. Advance Directives: DNR, has MOLST 7. Mild transaminitis with elevated ALT: better today 8. Estimated LOS: possible d/c on 05/08/19 05/07/19 19:28
[2019-05-08] MEDS: Aspirin EC TAB* 81 MG TAB.EC PO SCH (08:14)
[2019-05-08] MEDS: Docusate CAP* 100 MG PO SCH (08:14)
[2019-05-08] MEDS: Metoprolol Succinate XL TAB* 25 MG PO SCH (08:14)
[2019-05-08] MEDS: Clopidogrel TAB* 75 MG PO SCH (08:14)
[2019-05-08] MEDS: traMADol TAB* 50 MG PO PRN (08:15)
[2019-05-08] MEDS: Pantoprazole TAB * 40 MG TAB PO SCH (08:15)
[2019-05-08] MEDS: Heparin VIAL(*) 5000 UNITS/ML VIAL (FIVE THOUSAND) SUBCUT SCH (08:16)
[2019-05-08 14:12] VITALS: BP 109/49
--- NOTE | 2019-05-08 23:52 | DS ---
CC: Dr. Ssuu Blood; Dr. Myrna Lopez * DISCHARGE SUMMARY: DATE OF ADMISSION: 05/02/19 DATE OF DISCHARGE: 05/08/19 DISCHARGE DIAGNOSES: 1. Multiple strokes. 2. Multiple myeloma. 3. Hypertension. 4. Chronic kidney disease. 5. Aortic stenosis. 6. Thrombocytopenia. HISTORY OF ILLNESS: For complete history of the events leading up to her rehab stab, please see the history and physical dictated by me on 05/02/19. While on the rehab unit, the patient was treated with both aspirin and Plavix, dual antiplatelet therapy. She received 14 days, would require 7 more days after discharge. Her hyponatremia resolved and she was on a high-protein diet with a 1500 mL fluid restriction. This was loosened to a 1750 mL fluid restriction on discharge. Her thrombocytopenia resolved. She was maintained on heparin for DVT prophylaxis. The patient otherwise was medically stable. She was seen by both Physical and Occupational Therapy and made good gains with both disciplines. With physical therapy at the time of admission, the patient required supervision to transfer. She was able to ambulate 300 feet with supervision on a rolling walker. She did have some drift noted at the time of admission. By the time of discharge, she was independent in transfers and independently ambulating 150 feet with a walker. With occupational therapy at the time of admission, the patient required supervision for lower body dressing , setup for upper body dressing, supervision for toileting, supervision for toilet transfers. By the time of discharge, she was independent in these activities. The patient was discharged home with her daughter on 05/08/19. DISPOSITION: Home. CONDITION AT DISCHARGE: Fair. DISCHARGE DIET: High protein, 1750 mL fluid restriction. DISCHARGE MEDICATIONS: Included: 1. Aspirin 81 mg daily. 2. Lipitor 10 mg daily. 3. Plavix 75 mg daily for 7 days. 4. Toprol-XL 25 mg daily. 5. Protonix 40 mg daily. 6. Tramadol 50 mg every 12 hours as needed, not to exceed 2 per day. SERVICES AFTER DISCHARGE: Through visiting nurse service. She will have home nursing, home physical therapy, and a home health aide. FOLLOWUP: The patient will follow up with Dr. Lopez, her perinatal coordinator as well as with Dr. Susu Blood from Oncology. She will also follow up with [facility] 05/10/19 for new primary care provider. [id number]/[facility] #: [id number] MTDD
== END 2019-05-08 16:00 | disposition home health service (06) | DRG 65 ==
LOC: PMRU 11:13
PROVIDERS: ADMIT Physical Medicine & Rehabilitation; ATTEND Physical Medicine & Rehabilitation
PROC: F07Z5ZZ Bed Mobility Treatment (ICD-10-PCS; principal; 2019-05-02)
PROC: F07Z9ZZ Gait Training/Functional Ambulation Treatment (ICD-10-PCS; 2019-05-02)
PROC: F07Z8ZZ Transfer Training Treatment (ICD-10-PCS; 2019-05-02)
PROC: F07Z4ZZ Wheelchair Mobility Treatment (ICD-10-PCS; 2019-05-02)
PROC: F08Z0ZZ Bathing/Showering Techniques Treatment (ICD-10-PCS; 2019-05-02)
PROC: F08Z1ZZ Dressing Techniques Treatment (ICD-10-PCS; 2019-05-02)
PROC: F08Z3ZZ Feeding/Eating Treatment (ICD-10-PCS; 2019-05-02)
PROC: F08Z2ZZ Grooming/Personal Hygiene Treatment (ICD-10-PCS; 2019-05-02)
PROC: F06Z6ZZ Communicative/Cognitive Integration Skills Treatment (ICD-10-PCS; 2019-05-02)
DX: I63.9 Cerebral infarction, unspecified (principal); C90.00 Multiple myeloma not having achieved remission; E87.1 Hypo-osmolality and hyponatremia; D69.6 Thrombocytopenia, unspecified; Z66 Do not resuscitate; R74.0 Nonspecific elevation of levels of transaminase and lactic acid dehydrogenase [LDH]; I12.9 Hypertensive chronic kidney disease with stage 1 through stage 4 chronic kidney disease, or unspecified chronic kidney disease; N18.9 Chronic kidney disease, unspecified; G31.84 Mild cognitive impairment of uncertain or unknown etiology; I35.0 Nonrheumatic aortic (valve) stenosis; Z79.02 Long term (current) use of antithrombotics/antiplatelets; Z79.82 Long term (current) use of aspirin; Z79.899 Other long term (current) drug therapy; Z88.2 Allergy status to sulfonamides
CPT/HCPCS: 36415; 80053; 85025; A9270-GY; J1644

== ENCOUNTER 2019-06-11 18:55 | Emergency (ER) | payer MEDICARE ==
--- NOTE | 2019-06-11 19:16 | ED ---
Neurological HPI - HPI Summary HPI Summary: 78 year old F presenting to [facility] via EMS with a chief complaint of bilateral leg weakness, slurred speech which has since resolved, and increased confusion since this morning. The patient rates the pain 8/10 in severity. Symptoms aggravated by nothing. Symptoms alleviated by nothing. Per the patient's visitor the patient was unable to let go of her walker or bend her knees prior to EMS being called. The patient last received chemotherapy 3 days ago. Medication list reviewed. Allergy list reviewed. - History of Current Complaint Chief Complaint: EDWeakness Stated Complaint: POSS CVA PER EMS Time Seen by Provider: 06/11/19 19:02 Hx Obtained From: Patient, Family/Cabinet Maker Onset/Duration: Started hours ago Current Severity: Moderate Pain Intensity: 8 Pain Scale Used: 0-10 Numeric Aggravating: Nothing Alleviating: Nothing Associated Signs and Symptoms: Positive: Confusion, Weakness - Bilateral legs, Impaired Speech - Slurred - Additional Pertinent History Primary Care Physician: LESLY - Allergy/Home Medications Allergies/Adverse Reactions: Allergies Allergy/AdvReac Type Severity Reaction Status Date / Time Sulfa (Sulfonamide Allergy Rash And Verified 06/11/19 19:07 Antibiotics) Itching Home Medications: Home Medications Acyclovir* [Zovirax 400 MG TAB*] 400 mg PO BID 04/24/19 [History Confirmed 06/10] Aspirin EC TAB* [Ecotrin EC Low Dose 81 MG*] 81 mg PO DAILY tab.ec 05/07/19 [ Rx Confirmed 06/11/19] Atorvastatin* [Lipitor 10 MG*] 10 mg PO 1700 #30 tab 05/07/19 [Rx Confirmed ] Metoprolol Succinate XL TAB* [Toprol XL TAB*] 25 mg PO DAILY #30 tab.xl [Rx Confirmed 06/11/19] Pantoprazole TAB * [Protonix TAB*] 40 mg PO DAILY #30 tab 05/07/19 [Rx Confirmed 06/11/19] traMADol TAB* [Ultram*] 50 mg PO Q12H PRN #60 tab MDD 2 05/07/19 [Rx Confirmed 06/11/19] Dexamethasone TAB* [Decadron TAB*] 4 mg PO DAILY 06/11/19 [History Confirmed ] Nitrofurantoin Monohyd/M-Cryst [Macrobid 100 mg Capsule] 100 mg PO BID #14 cap 06/11/19 [Rx] Nitrofurantoin Monohyd/M-Cryst [Macrobid 100 mg Capsule] 100 mg PO BID #14 cap 06/11/19 [Rx] PMH/Surg Hx/FS Hx/Imm Hx Endocrine/Hematology History: Reports: Hx Blood Transfusions, Hx Anemia Denies: Hx Diabetes Cardiovascular History: Reports: Hx Hypertension, Hx Valvular Heart Disease Denies: Hx Pacemaker/ICD Respiratory History: Denies: Hx Chronic Obstructive Pulmonary Disease (COPD) GI History: Reports: Other GI Disorders - Constipation History: Denies: Hx Dialysis, Hx Renal Disease - STAGE 3 KIDNEY DISEASE Musculoskeletal History: Reports: Hx Back Problems, Other Musculoskeletal History Sensory History: Reports: Hx Cataracts - had bilateral surgery, Hx Contacts or Glasses, Hx Hearing Aid, Hx Hearing Problem Denies: Hx Eye Injury, Hx Legally Blind, Hx Deafness Opthamlomology History: Reports: Hx Cataracts - had bilateral surgery, Hx Contacts or Glasses Denies: Hx Eye Injury, Hx Legally Blind Neurological History: Denies: Hx Dementia, Hx Seizures Psychiatric History: Denies: Hx Panic Disorder - Cancer History Cancer Type, Location and Year: multiple myoloma Hx Chemotherapy: Yes Hx Radiation Therapy: Yes - FINISHED 12/2018 - Surgical History Surgery Procedure, Year, and Place: Bilateral TKA, Cataract surgery Hx Anesthesia Reactions: No Infectious Disease History: No Infectious Disease History: Denies: Traveled Outside the [place] in Last 30 Days - Family History Known Family History: Negative: Blood Disorder - Social History Alcohol Use: None Hx Substance Use: No Substance Use Type: Reports: None Hx Tobacco Use: No Smoking Status (MU): Never Smoked Tobacco Review of Systems Positive: Other - Confusion Positive: Weakness - Bilateral legs, Slurred Speech All Other Systems Reviewed And Are Negative: Yes Physical Exam - Summary Physical Exam Summary: Appearance: The patient is well-nourished in no acute distress and in no acute pain. Skin: The skin is warm and dry, and skin color reflects adequate perfusion. HEENT: The head is normocephalic and atraumatic. The pupils are equal and reactive. The conjunctivae are clear and without drainage. Nares are patent and without drainage. Mouth reveals moist mucous membranes, and the throat is without erythema and exudate. The external ears are intact. The ear canals are patent and without drainage. The tympanic membranes are intact. Neck: The neck is supple with full range of motion and non-tender. There are no carotid bruits. There is no neck vein distension. Respiratory: Chest is non-tender. Lungs are clear to auscultation and breath sounds are symmetrical and equal. Cardiovascular: Heart is regular rate and rhythm. There is no murmur or rub auscultated. There is no peripheral edema and pulses are symmetrical and equal. Abdomen: The abdomen is soft and non-tender. There are normal bowel sounds heard in all four quadrants and there is no organomegaly palpated. Musculoskeletal: There is no back tenderness noted. Extremities are non-tender with full range of motion. There is good capillary refill. There is no peripheral edema or calf tenderness elicited. Neurological: Patient is alert and oriented to person, place and time. The patient has symmetrical motor strength in all four extremities. Cranial nerves are grossly intact. Deep tendon reflexes are symmetrical and equal in all four extremities. NIH Stroke Scale 0. GCS 15. Psychiatric: The patient has an appropriate affect and does not exhibit any anxiety or depression. Triage Information Reviewed: Yes Vital Signs On Initial Exam: Initial Vitals Temp Pulse Resp BP Pulse Ox 98.4 F 77 20 135/73 96 06/11/19 19:03 06/11/19 19:03 06/11/19 19:03 06/11/19 19:03 06/11/19 19:03 Vital Signs Reviewed: Yes - Preston Coma Scale Best Eye Response: 4 - Spontaneous Best Motor Response: 6 - Obeys Commands Best Verbal Response: 5 - Oriented Coma Scale Total: 15 Procedures - Sedation Patient Received Moderate/Deep Sedation with Procedure: No Diagnostics - Vital Signs Vital Signs Temp Pulse Resp BP Pulse Ox 06/11/19 19:03 98.4 F 77 20 135/73 96 - Laboratory Result Diagrams: 06/11/19 19:24 06/11/19 19:24 Lab Statement: Any lab studies that have been ordered have been reviewed, and results considered in the medical decision making process. - Radiology Chest x-ray Radiology Interpretation Completed By: ED Physician Summary of Radiographic Findings: No acute process. ED physician has reviewed and interpreted this report. - CT Brain CT CT Interpretation Completed By: Radiologist Summary of CT Findings: No acute intracranial abnormality. ED physician has reviewed this report. - EKG 19:26 Cardiac Rate: NL - 73 BPM EKG Rhythm: Sinus Rhythm Summary of EKG Findings: Normal sinus rhythm, normal ST, no ectopy, no STEMI. ED physician has reviewed and interpreted this EKG. NIH Scale - NIH Scale Level of Consciousness: Alert/Keenly Responsive Ask Patient the Month and His/Her Age: Both Correct Ask Pt to Open/Close Eyes and Mobile Device Engineer/Release Non-Paretic Hand: Both Correctly Best Gaze (Only Horizontal Eye Movement): Normal Visual Field Testing: No Visual Loss Facial Paresis-Pt to Smile & Close Eyes or Grimace Symmetry: Normal/Symmetrical Motor Function - Right Arm: No Drift-Holds 10 Seconds Motor Function - Left Arm: No Drift-Holds 10 Seconds Motor Function - Right Leg: No Drift-Holds 10 Seconds Motor Function - Left Leg: No Drift-Holds 10 Seconds Limb Ataxia-Must be out of Proportion to Weakness Present: Absent Sensory (Use Pinprick to Test Arms/Legs/Trunk/Face): Normal Best Language (Describe Picture, Name Items): No Aphasia Dysarthria (Read Several Words): Normal Extinction and Inattention: No Abnormality Total Score: 0 Course/Dx - Course Course Of Treatment: Ms. Freedman seemed to her daughter to the extra weak this morning. She has just recently restarted chemotherapy. After they got home from chemotherapy today the patient had a great deal of difficulty ambulating with her walker and seemed confused and poorly responsive. The ambulance was called and found the patient confused and having difficulty answering questions. This improved on the way here and by the time they got here this had resolved but the patient still seemed weak to her daughter.. Her NIH stroke scale was 0. She was given a workup and found to have a UTI. She was able to ambulate here with a walker and the daughter felt that she was at her normal baseline except generally a little bit weaker. This seems to me more likely to be a result of an infectious process and her chemotherapy then a TIA. I recommended antibiotics and follow-up. - Diagnoses Provider Diagnoses: Weakness, UTI (urinary tract infection) Discharge ED - Sign-Out/Discharge Documenting (check all that apply): Patient Departure - Discharge Plan Condition: Stable Disposition: HOME Prescriptions: Nitrofurantoin Monohyd/M-Cryst [Macrobid 100 mg Capsule] 100 mg PO BID #14 cap Nitrofurantoin Monohyd/M-Cryst [Macrobid 100 mg Capsule] 100 mg PO BID #14 cap Patient Education Materials: Urinary Tract Infection in Women (ED), Weakness ( ED) Referrals: Flory Swanson [employer] [Primary Care Provider] - 7 Days Additional Instructions: Follow-up with your PCP this week. Return to the emergency department for changing or worsening symptoms. - Billing Disposition and Condition Condition: STABLE Disposition: Home - Attestation Statements Document Initiated by Scribe: Yes Documenting Scribe: Fatou Moore Provider For Whom Scribe is Documenting (Include Credential): Greald Gaming MD Scribe Attestation: Fatou Patel, scribed for Gerald Gaming MD on 06/11/19 at 2123. Scribe Documentation Reviewed: Yes Provider Attestation: The documentation as recorded by the Fatou field accurately reflects the service I personally performed and the decisions made by me, Gerald Gaming MD Status of Scribe Document: Viewed
[2019-06-11 19:39] LABS: ABS Monocytes 1.1 10^3/ul (0-0.8); ABS Neutrophils 3.9 10^3/ul (1.5-7.7); Eosinophil % 0.8 %; Hematocrit 35 % (35-47); Lymphocyte % 16.7 %; Mean Corpuscular HGB Conc 34 g/dL (31-36); Mean Corpuscular Hemoglobin 32 pg (27-31); Mean Corpuscular Volume 94 fL (80-97); Mean Platelet Volume 9.2 fL (7.4-10.4); Nucleated Red Blood Cells % 0.2; Platelet Count 158 10^3/uL (150-450); Red Blood Count 3.78 10^6 /uL (3.70-4.87); Red Cell Distribution Width 15 % (10-15)
[2019-06-11 19:49] LABS: INR 0.97 (0.82-1.09)
[2019-06-11 19:58] LABS: ALT 27 U/L (7-52); AST 14 U/L (13-39); Albumin 3.7 g/dL (3.2-5.2); Albumin/Globulin Ratio 1.9 (1-3); Alkaline Phosphatase 71 U/L (34-104); Anion Gap 6 mmol/L (2-11); BUN/Creatinine Ratio 24.5 (8-20); Blood Urea Nitrogen 34 mg/dL (6-24); C Reactive Protein < 1.00 mg/L (<8.01); CO2 Carbon Dioxide 28 mmol/L (22-32); Calcium 9.3 mg/dL (8.6-10.3); Chloride 100 mmol/L (101-111); EGFR African American 44.3 (>60); EGFR Non-African American 36.6 (>60); Globulin 1.9 g/dL (2-4); Glucose 113 mg/dL (70-100); Potassium 3.9 mmol/L (3.5-5.0); Sodium 134 mmol/L (135-145); Total Protein 5.6 g/dL (6.4-8.9)
[2019-06-11 19:59] LABS: Troponin I 0.01 ng/mL (<0.03)
[2019-06-11 20:13] LABS: TSH (Thyroid Stimulating Horm) 3.34 mcIU/mL (0.34-5.60)
[2019-06-11 20:23] LABS: Urine Appearance Cloudy; Urine Bilirubin Negative (Negative); Urine Blood Negative (Negative); Urine Color Yellow; Urine Glucose Negative (Negative); Urine Ketones Negative (Negative); Urine Nitrite Positive (Negative); Urine Protein Negative (Negative); Urine Specific Gravity 1.006 (1.010-1.030); Urine Urobilinogen Negative (Negative)
[2019-06-11 20:25] LABS: Urine Bacteria 3+ (Absent); Urine Red Blood Cell 3+(>10/hpf) (Absent); Urine Squamous Epithelial Cell Present (Absent); Urine White Blood Cell 3+(>20/hpf) (Absent)
[2019-06-11] MEDS ORDERED: Nitrofurantoin Macrocrystals* 100 MG CAP PO ONE (20:50)
[2019-06-11 21:14] VITALS: BP 131/61
--- NOTE | 2019-06-14 05:58 | ED ---
Imaging and Labs Follow Up Follow Up Type: Labs/Cultures Labs/Culture Result: urine culture preliminary grew E coli >100,000. Patient Communication/Plan: patient placed on macrobid. will wait on final culture for sensitivity. Provider Diagnoses: Weakness, UTI (urinary tract infection)
== END 2019-06-11 21:14 | disposition home or self-care (01) ==
LOC: ED 18:55
DX: N39.0 Urinary tract infection, site not specified (principal); C90.00 Multiple myeloma not having achieved remission; I10 Essential (primary) hypertension; R53.1 Weakness; R41.0 Disorientation, unspecified; Z88.2 Allergy status to sulfonamides; Z79.82 Long term (current) use of aspirin; Z79.899 Other long term (current) drug therapy; Z92.21 Personal history of antineoplastic chemotherapy
CPT/HCPCS: 36415; 70450; 71045; 80053; 81003; 81015; 83605; 83735; 84443; 84484; 85025; 85610; 86140; 87077; 87086; 87186; 93005; 99283; A9270-GY

== ENCOUNTER 2022-11-03 15:47 | Inpatient (IN) ==
[2022-11-03 16:40] LABS: Albumin 3.7 g/dL (3.2-5.2); Calcium 8.8 mg/dL (8.6-10.3); Creatinine, Serum 1.65 mg/dL (0.51-0.95); Potassium 3.8 mmol/L (3.5-5.0); Total Protein 5.8 g/dL (6.4-8.9); eGFR CKD-EPI 30.6 (>60)
[2022-11-03 16:41] LABS: Albumin/Globulin Ratio 1.8 (1-3); Globulin 2.1 g/dL (2-4); Total Bilirubin 0.5 mg/dL (0.2-1.0)
[2022-11-03 17:04] LABS: ABS Lymphocytes 0.6 10^3/uL (1.0-4.8); ABS Monocytes 0.7 10^3/uL (0.0-0.9); ABS Neutrophils 1.2 10^3/uL (1.5-7.6); Eosinophil % 0.7 %; Hematocrit 31.4 % (35-45); Hemoglobin 10.4 g/dL (11.5-14.3); Lymphocyte % 22.6 %; Mean Corpuscular Hemoglobin 30.7 pg (27-33); Mean Corpuscular Hgb Conc 33.3 g/dL (31-36); Mean Corpuscular Volume 92.3 fL (80-97); Mean Platelet Volume 8.6 fL (7.5-11.2); Nucleated Red Blood Cells % 0.2 /100 WBC (0.0-0.4); Platelet Count 148 10^3/uL (150-450); Red Cell Distribution Width 15.9 % (12-17); White Blood Count 2.5 10^3/uL (3.8-11.8)
[2022-11-03] MEDS ORDERED: Ondansetron 4 mg VIAL 2 MG/ML 2 ml VIAL IV ONE (17:32)
[2022-11-03] MEDS ORDERED: Morphine 4 MG/ML VIAL (1 ml) IV ONE (17:32)
[2022-11-03] MEDS ORDERED: Ondansetron 4 mg VIAL 2 MG/ML 2 ml VIAL IV PRN (19:24)
[2022-11-03] MEDS ORDERED: Morphine 2 MG/ML SYRINGE IV PRN (19:27)
[2022-11-04 08:48] LABS: Hemoglobin 10.4 g/dL (11.5-14.3); Mean Corpuscular Hemoglobin 31.8 pg (27-33); Mean Corpuscular Hgb Conc 34.6 g/dL (31-36); Mean Corpuscular Volume 91.9 fL (80-97); Mean Platelet Volume 8.2 fL (7.5-11.2); Platelet Count 127 10^3/uL (150-450); Red Blood Count 3.26 10^6/uL (3.63-4.92); Red Cell Distribution Width 15.7 % (12-17); White Blood Count 2.1 10^3/uL (3.8-11.8)
[2022-11-04 09:00] LABS: ABS Eosinophils 0.1 10^3/uL (0.0-0.5); ABS Lymphocytes 0.9 10^3/uL (1.0-4.8); ABS Monocytes 0.4 10^3/uL (0.0-0.9); ABS Neutrophils 0.8 10^3/uL (1.5-7.6); ABS Nucleated RBC 0.01 10^3/ul; Lymphocyte % 40.3 %; Nucleated Red Blood Cells % 0.3 /100 WBC (0.0-0.4)
[2022-11-04 09:05] LABS: Creatinine, Serum 1.45 mg/dL (0.51-0.95); Potassium 4.3 mmol/L (3.5-5.0)
[2022-11-04 09:06] LABS: Calcium 8.4 mg/dL (8.6-10.3); eGFR CKD-EPI 35.8 (>60)
[2022-11-04 12:47] LABS: TSH Ultra Thyroid Stim Horm 3.93 mcIU/mL (0.34-5.60)
[2022-11-05 06:02] LABS: Hemoglobin 11.3 g/dL (11.5-14.3); Mean Corpuscular Hemoglobin 31.3 pg (27-33); Mean Corpuscular Hgb Conc 34.3 g/dL (31-36); Mean Corpuscular Volume 91.3 fL (80-97); Mean Platelet Volume 7.9 fL (7.5-11.2); Platelet Count 132 10^3/uL (150-450); Red Blood Count 3.62 10^6/uL (3.63-4.92); Red Cell Distribution Width 15.4 % (12-17)
[2022-11-05 07:05] LABS: ABS Eosinophils 0.1 10^3/uL (0.0-0.5); ABS Lymphocytes 0.8 10^3/uL (1.0-4.8); ABS Monocytes 0.3 10^3/uL (0.0-0.9); ABS Neutrophils 0.9 10^3/uL (1.5-7.6); Eosinophil % 2.8 %; Lymphocyte % 37.9 %; Nucleated Red Blood Cells % 0.2 /100 WBC (0.0-0.4)
[2022-11-06 06:25] LABS: Hematocrit 29.3 % (35-45); Mean Corpuscular Hemoglobin 31.3 pg (27-33); Mean Corpuscular Hgb Conc 34.3 g/dL (31-36); Mean Corpuscular Volume 91.2 fL (80-97); Mean Platelet Volume 7.8 fL (7.5-11.2); Platelet Count 127 10^3/uL (150-450); Red Blood Count 3.21 10^6/uL (3.63-4.92); Red Cell Distribution Width 15.6 % (12-17); White Blood Count 1.5 10^3/uL (3.8-11.8)
[2022-11-06 06:28] LABS: ABS Lymphocytes 0.4 10^3/uL (1.0-4.8); ABS Monocytes 0.3 10^3/uL (0.0-0.9); ABS Neutrophils 0.7 10^3/uL (1.5-7.6); Eosinophil % 2.9 %; Lymphocyte % 29.8 %; Nucleated Red Blood Cells % 0.2 /100 WBC (0.0-0.4)
[2022-11-06 06:42] LABS: Calcium 8.3 mg/dL (8.6-10.3); Creatinine, Serum 1.28 mg/dL (0.51-0.95); Potassium 3.7 mmol/L (3.5-5.0); eGFR CKD-EPI 41.6 (>60)
[2022-11-07 07:29] LABS: Hematocrit 27.8 % (35-45); Hemoglobin 9.6 g/dL (11.5-14.3); Mean Corpuscular Hemoglobin 31.6 pg (27-33); Mean Corpuscular Hgb Conc 34.7 g/dL (31-36); Mean Corpuscular Volume 91.2 fL (80-97); Mean Platelet Volume 8.2 fL (7.5-11.2); Platelet Count 142 10^3/uL (150-450); Red Blood Count 3.05 10^6/uL (3.63-4.92); Red Cell Distribution Width 15.7 % (12-17); White Blood Count 2.2 10^3/uL (3.8-11.8)
[2022-11-07 07:41] LABS: ABS Basophils 0.1 10^3/uL (0.0-0.1); ABS Lymphocytes 0.7 10^3/uL (1.0-4.8); ABS Monocytes 0.6 10^3/uL (0.0-0.9); ABS Neutrophils 0.8 10^3/uL (1.5-7.6); Lymphocyte % 30.3 %
[2022-11-07 07:45] LABS: Calcium 8.2 mg/dL (8.6-10.3); Creatinine, Serum 1.31 mg/dL (0.51-0.95); Potassium 3.7 mmol/L (3.5-5.0); eGFR CKD-EPI 40.4 (>60)
[2022-11-07 09:53] VITALS: BP 125/79
== END 2022-11-07 13:58 | DRG 83 ==
LOC: ED 15:47 → SUATTDRO 19:24 → EDHOLD 19:24 → ICU 11-04 08:27 → MED 11-04 18:31
PROVIDERS: ADMIT Student in an Organized Health Care Education/Training Program; ATTEND Internal Medicine

== ENCOUNTER 2022-11-07 08:26 | Inpatient (IN) ==
[2022-11-07] MEDS ORDERED: Magnesium Hydroxide LIQ 30 ML UDC PO PRN (09:48)
[2022-11-07] MEDS ORDERED: Senna TAB 8.6 mg TAB PO PRN (09:48)
[2022-11-08 06:19] LABS: Hematocrit 27.6 % (35-45); Hemoglobin 9.7 g/dL (11.5-14.3); Mean Corpuscular Hemoglobin 31.9 pg (27-33); Mean Corpuscular Hgb Conc 35.1 g/dL (31-36); Mean Corpuscular Volume 90.8 fL (80-97); Mean Platelet Volume 7.4 fL (7.5-11.2); Platelet Count 158 10^3/uL (150-450); Red Blood Count 3.04 10^6/uL (3.63-4.92); Red Cell Distribution Width 15.5 % (12-17); White Blood Count 2.9 10^3/uL (3.8-11.8)
[2022-11-08 06:37] LABS: Albumin/Globulin Ratio 1.6 (1-3); Calcium 8.2 mg/dL (8.6-10.3); Creatinine, Serum 1.18 mg/dL (0.51-0.95); Globulin 1.9 g/dL (2-4); Potassium 3.5 mmol/L (3.5-5.0); Total Bilirubin 1.2 mg/dL (0.2-1.0); Total Protein 4.9 g/dL (6.4-8.9); eGFR CKD-EPI 45.8 (>60)
[2022-11-08 08:32] LABS: RBC Morphology Normal (Normal)
[2022-11-08 08:33] LABS: ABS Basophils 0.1 10^3/uL (0.0-0.1); ABS Lymphocytes 0.6 10^3/uL (1.0-4.8); ABS Neutrophils 1.2 10^3/uL (1.5-7.6); Lymphocyte % 20.6 %; Nucleated Red Blood Cells % 0.1 /100 WBC (0.0-0.4)
[2022-11-09 01:39] LABS: Urine Appearance Clear; Urine Bilirubin Negative (Negative); Urine Blood 1+ (Negative); Urine Color Yellow; Urine Glucose Negative (Negative); Urine Ketones Negative (Negative); Urine Nitrite Negative (Negative); Urine Protein Negative (Negative); Urine Specific Gravity 1.005 (1.002-1.030); Urine Urobilinogen Negative (Negative)
[2022-11-09 01:54] LABS: Urine Bacteria Absent (Absent); Urine Red Blood Cell Absent (Absent); Urine Squamous Epithelial Cell Present (Absent); Urine White Blood Cell 1+(6-10/hpf) (Absent)
[2022-11-09] MEDS: Heparin 5000 UNITS/ML 1 mL VIAL SUBCUT SCH ×2 (20:34→21:18)
[2022-11-10 06:15] LABS: ABS Basophils 0.1 10^3/uL (0.0-0.1); ABS Lymphocytes 0.4 10^3/uL (1.0-4.8); ABS Monocytes 0.4 10^3/uL (0.0-0.9); ABS Neutrophils 1.5 10^3/uL (1.5-7.6); Eosinophil % 0.8 %; Hemoglobin 9.9 g/dL (11.5-14.3); Lymphocyte % 17.4 %; Mean Corpuscular Hemoglobin 31.5 pg (27-33); Mean Corpuscular Hgb Conc 35.1 g/dL (31-36); Mean Corpuscular Volume 89.7 fL (80-97); Mean Platelet Volume 7.6 fL (7.5-11.2); Nucleated Red Blood Cells % 0.1 /100 WBC (0.0-0.4); Platelet Count 203 10^3/uL (150-450); Red Blood Count 3.12 10^6/uL (3.63-4.92); Red Cell Distribution Width 15.6 % (12-17); White Blood Count 2.5 10^3/uL (3.8-11.8)
[2022-11-10] MEDS: Heparin 5000 UNITS/ML 1 mL VIAL SUBCUT SCH ×2 (09:32→21:08)
[2022-11-11] MEDS: Heparin 5000 UNITS/ML 1 mL VIAL SUBCUT SCH ×2 (08:38→21:25)
[2022-11-12 06:04] LABS: ABS Basophils 0.1 10^3/uL (0.0-0.1); ABS Lymphocytes 0.5 10^3/uL (1.0-4.8); ABS Monocytes 0.2 10^3/uL (0.0-0.9); ABS Neutrophils 1.9 10^3/uL (1.5-7.6); ABS Nucleated RBC 0.01 10^3/ul; Eosinophil % 0.7 %; Hematocrit 26.3 % (35-45); Hemoglobin 9.3 g/dL (11.5-14.3); Lymphocyte % 16.8 %; Mean Corpuscular Hemoglobin 31.9 pg (27-33); Mean Corpuscular Hgb Conc 35.4 g/dL (31-36); Mean Corpuscular Volume 90.1 fL (80-97); Mean Platelet Volume 7.3 fL (7.5-11.2); Nucleated Red Blood Cells % 0.3 /100 WBC (0.0-0.4); Platelet Count 220 10^3/uL (150-450); Red Blood Count 2.91 10^6/uL (3.63-4.92); Red Cell Distribution Width 16.1 % (12-17); White Blood Count 2.7 10^3/uL (3.8-11.8)
[2022-11-12] MEDS: Aspirin EC 81 mg TAB.EC (enteric coated) PO SCH (09:07)
[2022-11-12] MEDS: Heparin 5000 UNITS/ML 1 mL VIAL SUBCUT SCH ×2 (09:24→20:57)
[2022-11-13] MEDS: Aspirin EC 81 mg TAB.EC (enteric coated) PO SCH (09:06)
[2022-11-13] MEDS: Heparin 5000 UNITS/ML 1 mL VIAL SUBCUT SCH ×2 (09:13→21:42)
[2022-11-14] MEDS: Aspirin EC 81 mg TAB.EC (enteric coated) PO SCH (09:03)
[2022-11-14] MEDS: Heparin 5000 UNITS/ML 1 mL VIAL SUBCUT SCH ×2 (09:05→21:22)
[2022-11-15 08:10] LABS: ABS Basophils 0.2 10^3/uL (0.0-0.1); ABS Lymphocytes 0.5 10^3/uL (1.0-4.8); ABS Monocytes 0.2 10^3/uL (0.0-0.9); ABS Nucleated RBC 0.01 10^3/ul; Eosinophil % 0.4 %; Hematocrit 31.4 % (35-45); Hemoglobin 10.9 g/dL (11.5-14.3); Mean Corpuscular Hemoglobin 31.4 pg (27-33); Mean Corpuscular Hgb Conc 34.8 g/dL (31-36); Mean Corpuscular Volume 90.2 fL (80-97); Mean Platelet Volume 8.1 fL (7.5-11.2); Nucleated Red Blood Cells % 0.2 /100 WBC (0.0-0.4); Platelet Count 241 10^3/uL (150-450); Red Blood Count 3.48 10^6/uL (3.63-4.92); Red Cell Distribution Width 15.9 % (12-17); White Blood Count 3.9 10^3/uL (3.8-11.8)
[2022-11-15 08:28] LABS: Albumin 3.2 g/dL (3.2-5.2); Albumin/Globulin Ratio 1.4 (1-3); Calcium 8.6 mg/dL (8.6-10.3); Creatinine, Serum 1.36 mg/dL (0.51-0.95); Globulin 2.3 g/dL (2-4); Potassium 3.2 mmol/L (3.5-5.0); Total Bilirubin 0.6 mg/dL (0.2-1.0); Total Protein 5.5 g/dL (6.4-8.9); eGFR CKD-EPI 38.7 (>60)
[2022-11-15] MEDS: Heparin 5000 UNITS/ML 1 mL VIAL SUBCUT SCH ×2 (09:24→20:16)
[2022-11-15] MEDS: Aspirin EC 81 mg TAB.EC (enteric coated) PO SCH (09:27)
[2022-11-16] MEDS: Aspirin EC 81 mg TAB.EC (enteric coated) PO SCH (08:43)
[2022-11-16] MEDS ORDERED: Potassium Chlor 20 meq TAB.ER PO ONE (19:57)
[2022-11-17] MEDS: Aspirin EC 81 mg TAB.EC (enteric coated) PO SCH (10:55)
[2022-11-18 05:50] VITALS: BP 109/71
[2022-11-18] MEDS: Aspirin EC 81 mg TAB.EC (enteric coated) PO SCH (09:12)
== END 2022-11-18 15:20 | disposition hospice, home (50) | DRG 945 ==
LOC: PMRU 13:58
PROVIDERS: ADMIT Physical Medicine & Rehabilitation; ATTEND Physical Medicine & Rehabilitation